=== PATIENT | female | born 1940 | race Hispanic/Latino ===

== ENCOUNTER 2017-09-04 17:33 | Inpatient (IN) | payer MEDICARE, OTHER ==
[2017-09-04] MEDS ORDERED: Nitroglycerin 2% Ointment Foilpak UD TOP STA (18:07)
[2017-09-04 18:32] LABS: BASO # 0.1 K/uL (0.0-0.2); BASO % 1.1 % (0.0-2.0); EOS # 0.1 K/uL (0.0-0.7); EOS % 1.2 % (0.0-4.0); HEMOGLOBIN 11.5 g/dL (12.0-16.0); LYMPH # 1.1 K/uL (1.0-4.3); LYMPH % 15.4 % (20.0-40.0); MEAN CELL VOLUME 97.9 fl (81.0-99.0); MEAN CORPUSCULAR HEMOGLOBIN 31.8 pg (27.0-31.0); MEAN CORPUSCULAR HGB CONC 32.4 g/dL (33.0-37.0); MEAN PLATELET VOLUME 7.7 fl (7.2-11.7); MONO # 0.5 K/uL (0.0-0.8); MONO % 6.9 % (0.0-10.0); NEUT # 5.3 K/uL (1.8-7.0); NEUT % 75.4 % (50.0-75.0); NRBC % 0.1 % (0.0-0.0); RBC 3.62 Mil/uL (3.80-5.20); RED CELL DISTRIBUTION WIDTH 16.1 % (11.5-14.5); WHITE BLOOD COUNT 7.1 K/uL (4.8-10.8)
[2017-09-04 18:42] LABS: ALBUMIN 3.5 g/dL (3.5-5.0); CALCIUM 10.3 mg/dL (8.4-10.2)
[2017-09-04] MEDS ORDERED: Iodixanol 320 MG/ML 100 ML BOTTLE IV ONE (18:42)
[2017-09-04] MEDS ORDERED: Sodium Chloride 0.9% 50 ML IV ONE (18:42)
[2017-09-04 18:52] LABS: INR 1.4 (0.9-1.2); PROTHROMBIN TIME 15.6 Seconds (9.8-13.1)
[2017-09-04] MEDS ORDERED: Nitroglycerin 2% Ointment Foilpak UD TOP ONE (18:52)
[2017-09-04 18:53] LABS: PARTIAL THROMBOPLASTIN TIME 30.5 Seconds (25.6-37.1); TROPONIN I 0.046 ng/mL (0.00-0.120)
--- NOTE | 2017-09-04 20:08 | ED PDOC ---
HPI: SOB/CHF/COPD Time Seen by Provider: 09/04/17 17:50 Chief Complaint (Nursing): Shortness Of Breath Chief Complaint (Provider): shortness of breath History Per: Patient History/Exam Limitations: no limitations Onset/Duration Of Symptoms: Other (1 month) Current Symptoms Are (Timing): Still Present Exacerbating Factor(s): Exertion, Laying Flat Associated Symptoms: denies: Chest Pain Additional Complaint(s): 77 year old female with a history of atrial fibrillation, hypertension and CHF presents to the ED complaining of shortness of breath onset for 1 month. Reports it is worsening with associated symptoms of leg swelling and dyspnea on exertion as well as lying down. States her doctor is away currently and the symptoms are similar to when she had CHF. Denies chest pain. Of note: For several months, she has had abnormal left breast with wound that is worsening. At this time she declines workup and does not want her family to know about it. PMD: Jesus Hassan Past Medical History Reviewed: Historical Data, Nursing Documentation, Vital Signs Vital Signs: Last Vital Signs Temp 98.1 F 09/04/17 21:00 Pulse 95 H 09/04/17 21:00 Resp 16 09/04/17 18:46 BP 116/74 09/04/17 21:50 Pulse Ox 88 L 09/04/17 22:54 - Medical History PMH: Atrial Fibrillation, CHF, HTN Other PMH: possible left breast malignancy - Surgical History Surgical History: No Surg Hx - Family History Family History: States: No Known Family Hx - Social History Current smoker - smoking cessation education provided: No Alcohol: None Drugs: Denies - Home Medications Home Medications: Ambulatory Orders Medication Instructions Recorded Allopurinol [Zyloprim] 100 mg PO DAILY 09/04/17 Digoxin [Digitek] 125 mcg PO DAILY 09/04/17 Docusate [Colace] 100 mg PO BID 09/04/17 Ergocalciferol (Vitamin D2) 50,000 unit PO FR 09/04/17 [Vitamin D2] Ferrous Sulfate [Feosol] 325 mg PO DAILY 09/04/17 Furosemide [Lasix] 40 mg PO DAILY 09/04/17 Hydrocodone/Ibuprofen 1 tab PO DAILY PRN 09/04/17 [Hydrocodone-Ibuprofen 7.5-200] Icosapent Ethyl [Vascepa] 2 gm PO DAILY 09/04/17 Lisinopril [Zestril] 10 mg PO DAILY 09/04/17 Metoprolol Tartrate [Lopressor] 25 mg PO Q8 09/04/17 Potassium Chloride [Klor-Con 10] 10 meq PO DAILY 09/04/17 Rivaroxaban [Xarelto] 20 mg PO HS 09/04/17 traZODone [Desyrel] 50 mg PO HS 09/04/17 - Allergies Allergies/Adverse Reactions: Allergies Allergy/AdvReac Type Severity Reaction Status Date / Time No Known Allergies Allergy Verified 09/04/17 17:41 Review of Systems ROS Statement: Except As Marked, All Systems Reviewed And Found Negative (As per HPI, othwerise negative) Cardiovascular: Negative for: Chest Pain Respiratory: Positive for: Shortness of Breath, SOB with Exertion Musculoskeletal: Positive for: Other (leg swelling) Skin: Positive for: Other (wound on left breast) Physical Exam - Reviewed Nursing Documentation Reviewed: Yes Vital Signs Reviewed: Yes - Physical Exam Appears: Positive for: No Acute Distress Head Exam: Positive for: ATRAUMATIC, NORMOCEPHALIC Skin: Positive for: Normal Color (left breast large, irregular wound), Warm, Dry Eye Exam: Positive for: EOMI, PERRL ENT: Negative for: Pharyngeal Erythema, Tonsillar Exudate Neck: Positive for: Painless ROM, Supple Cardiovascular/Chest: Positive for: Tachycardia. Negative for: Murmur Respiratory: Positive for: Decreased Breath Sounds (bilateral lung zhang). Negative for: Accessory Muscle Use, Wheezing Gastrointestinal/Abdominal: Positive for: Soft. Negative for: Tenderness, Mass Back: Positive for: Normal Inspection. Negative for: Decreased ROM Extremity: Positive for: Pedal Edema (3+ lower leg up to the thigh ) Neurologic/Psych: Positive for: Alert. Negative for: Motor/Sensory Deficits - Laboratory Results Result Diagrams: 09/04/17 18:22 09/04/17 18:22 - ECG ECG Rhythm: Positive for: Normal ST Segment, Atrial Fibrillation O2 Sat by Pulse Oximetry: 88 (abnormal room air and low. patient place on normal room air and provided 6L O2 via Nasal Cannula ) Pulse Ox Interpretation: Abnormal - Progress Re-evaluation Time: 22:00 Condition: Unchanged - Critical Care Total Time (In Min): 30 Documented Critical Care: Time excludes all time spent performint seperately billable procedures Medical Decision Making Medical Decision Making: Time: 1804 Initial Impression: shortness of breath Differential Diagnosis includes but is not limited to: CHF, pulmonary embolism, pneumonia, anemia Initial Plan: Pt will need hospitalization for edema, hypoxia pending ER workup. --Angio Chest PE Protocol [CT] --B-Type Natriuretic Peptide --CMP --LACT Acid, Plasma --Troponin I --ED Urine Dipstick --CBC w/ Differential --PTT --Prothrombin Time --Chest Portable [RAD] --Ecotrin 162mg --Lasix 40mg --Nitro-Bid 2% Oint --engine monitor --O2 via Nasal Cannula --Duplex Lower EXTRM Vein Bilat [US] --Reevaluation Time: 2209 EXAM: US Duplex Bilateral Lower Extremity Veins FINDINGS: Right deep veins: Normal color and spectral Doppler flow. Normal compressibility. No deep vein thrombosis. Right superficial veins: Unremarkable. Left deep veins: Normal color and spectral Doppler flow. Normal compressibility. No deep vein thrombosis. Left superficial veins: Unremarkable. Soft tissues: Edema within soft tissues. IMPRESSION: 1. No evidence of DVT within lower extremities. 2. Incidental/non-acute findings are described above Time: 2232 EXAM: CT Angiography Chest With Intravenous Contrast FINDINGS: Limitations: Motion artifact - moderate. Pulmonary arteries: No definite pulmonary embolism. Aorta: No aneurysm. No dissection. Inferior vena cava: Retrograde filling of IVC and hepatic veins. Lungs: Moderate peripheral consolidation within lower lobes with associated volume loss. Mild peripheral consolidation within right middle, left upper lobes with associated volume loss. 0.5 cm LEFT upper lobe nodule. Pleural space: Moderate bilateral pleural effusions. No pneumothorax. Heart: [id number] cardiomegaly. No significant pericardial effusion. Bones/joints: Multiple lytic/few sclerotic lesions throughout visualized bones Degenerative changes of spine. Mild compression deformity superior end plate L1 vertebral body, acute or subacute. Soft tissues: Moderate diffuse stranding throughout subcutaneous tissues. 6.7 x 3.5 x 6.2 cm lobulated left breast mass with associated irregular skin thickening and ulceration. Lymph nodes: 2.3 x 3.2 x 1.5 cm right axillary lymph node. IMPRESSION: 1. No definite CT evidence of pulmonary embolism. 2. Bilateral pleural effusions with bibasilar compressive atelectasis. Superimposed pneumonia not entirely excluded. 3. Probable right-sided heart failure. Clinical correlation is needed. 4. Left breast mass, highly suspicious for malignancy. Followup as clinically warranted. 5. Multiple lytic lesions compatible with metastases. 6. Pulmonary nodules. For low-risk patients, no follow-up is necessary. For high-risk patients (smoking history or other known risk factors) an optional CT at 12 months could be performed. 7. Incidental/non-acute findings are described above. Discussed finding with patient and provided large fusions hypoxia for perfusion Due to patient's critical condition, patient placed in ICU. Discussed case with Dr. Redd hospitalist for admission to ICU and Dr. Higgins who is covering for Dr. Hassan. DW Dr Field Pulmonology and Dr Miller Cardiology Scribe Attestation: Documented by Petrona Padilla, acting as a scribe for Nieves Serrano MD Provider Scribe Attestation: All medical record entries made by the Scribe were at my direction and personally dictated by me. I have reviewed the chart and agree that the record accurately reflects my personal performance of the history, physical exam, medical decision making, and the department course for this patient. I have also personally directed, reviewed, and agree with the discharge instructions and disposition. Disposition - Clinical Impression Clinical Impression: Pleural effusion, bilateral, CHF (congestive heart failure), Metastatic breast cancer, Osteolytic lesion due to metastasis Counseled Patient/Family Regarding: Diagnosis - Disposition Disposition Time: 19:30 Condition: CRITICAL - Pt Status Changed To: Hospital Disposition Of: Inpatient - Admit Certification Admit to Inpatient:: After my assessment, the patient will require hospitalization for at least two midnights. This is because of the severity of symptoms shown, intensity of services needed, and/or the medical risk in this patient being treated as an outpatient. - POA Present On Arrival: None
--- NOTE | 2017-09-04 22:10 | US ---
EXAM: US Duplex Bilateral Lower Extremity Veins CLINICAL HISTORY: 77 years old, female; Signs and symptoms; Edema, localized and swelling of limb; Lower extremity, bilateral; Additional info: Leg swelling TECHNIQUE: Real-time duplex ultrasound scan of the bilateral lower extremity veins integrating B-mode two-dimensional vascular structure, Doppler spectral analysis, color flow Doppler imaging and compression. COMPARISON: No relevant prior studies available. FINDINGS: Right deep veins: Normal color and spectral Doppler flow. Normal compressibility. No deep vein thrombosis. Right superficial veins: Unremarkable. Left deep veins: Normal color and spectral Doppler flow. Normal compressibility. No deep vein thrombosis. Left superficial veins: Unremarkable. Soft tissues: Edema within soft tissues. IMPRESSION: 1. No evidence of DVT within lower extremities. 2. Incidental/non-acute findings are described above.
--- NOTE | 2017-09-04 22:33 | CT ---
EXAM: CT Angiography Chest With Intravenous Contrast CLINICAL HISTORY: 77 years old, female; Signs and symptoms; Shortness of breath; Additional info: SOB chf v pe TECHNIQUE: Axial computed tomographic angiography images of the chest with intravenous contrast using pulmonary embolism protocol. All CT scans at this facility use one or more dose reduction techniques, viz.: automated exposure control; ma/kV adjustment per patient size (including targeted exams where dose is matched to indication; i.e. head); or iterative reconstruction technique. MIP reconstructed images were created and reviewed. Coronal and sagittal reformatted images were created and reviewed. CONTRAST: 80 mL of [id number] administered intravenously. COMPARISON: No relevant prior studies available. FINDINGS: Limitations: Motion artifact - moderate. Pulmonary arteries: No definite pulmonary embolism. Aorta: No aneurysm. No dissection. Inferior vena cava: Retrograde filling of IVC and hepatic veins. Lungs: Moderate peripheral consolidation within lower lobes with associated volume loss. Mild peripheral consolidation within right middle, left upper lobes with associated volume loss. 0.5 cm LEFT upper lobe nodule. Pleural space: Moderate bilateral pleural effusions. No pneumothorax. Heart: [id number] cardiomegaly. No significant pericardial effusion. Bones/joints: Multiple lytic/few sclerotic lesions throughout visualized bones Degenerative changes of spine. Mild compression deformity superior end plate L1 vertebral body, acute or subacute. Soft tissues: Moderate diffuse stranding throughout subcutaneous tissues. 6.7 x 3.5 x 6.2 cm lobulated left breast mass with associated irregular skin thickening and ulceration. Lymph nodes: 2.3 x 3.2 x 1.5 cm right axillary lymph node. IMPRESSION: 1. No definite CT evidence of pulmonary embolism. 2. Bilateral pleural effusions with bibasilar compressive atelectasis. Superimposed pneumonia not entirely excluded. 3. Probable right-sided heart failure. Clinical correlation is needed. 4. Left breast mass, highly suspicious for malignancy. Followup as clinically warranted. 5. Multiple lytic lesions compatible with metastases. 6. Pulmonary nodules. For low-risk patients, no follow-up is necessary. For high-risk patients (smoking history or other known risk factors) an optional CT at 12 months could be performed. 7. Incidental/non-acute findings are described above. THIS REPORT CONTAINS FINDINGS THAT MAY BE CRITICAL TO PATIENT CARE. The findings were verbally communicated via telephone conference with Nieves Barhaona at 10:32 PM EDT on 09/04/2017. The findings were acknowledged and understood.
--- NOTE | 2017-09-04 23:10 | CP.PCM.CON ---
History of Present Illness - History of Present Illness History of Present Illness: CC: Shortness of breath This is a 77 year old female with a past medical history significant for CHF ( unknown as to the severity in the past), chronic atrial fibrillation anticoagulated on Xarelto, essential hypertension, who presented to the ED today with the complaint of progressively worsening shortness of breath over the last month. The patient states that her symptoms are worse when laying supine and with exertion. She notes that she has previously been admitted for CHF exacerbation several years ago. In addition to this, she notes a left sided abnormal breast wound that has been enlarging over time. She says this wound has been there quite a while but she does not want to pursue workup for this. In the ED, the patient was found to have significant bilateral pleural effusions on CXR/CTA chest consistent with CHF exacerbation. Also noted is significant bilateral lower extremity edema and +JVD. The patient was found to be hypoxic on room air in the low 80's but is now saturating > 90% on 4L O2 by NC. Lab workup shows Pro BNP of 5190, troponin level of 0.0460, normal WBC of 7.1, slightly depressed Hg of 11.5. Given her hypoxic resp failure on room air secondary to acute CHF exacerbation, the patient will be admitted to the ICU for further monitoring, workup, and tx. Patient denies chest pain, fevers, chills, nausea, vomiting, diarrhea, headache. All of the patient's and/or family 's questions were answered at the bedside. Review of Systems - Review of Systems Review of Systems: A 12 point review of systems was conducted and found to be negative other than in HPI. Past Patient History - Infectious Disease Hx of Infectious Diseases: None - Past Medical History & Family History Past Medical History?: Yes Past Family History: Reviewed and not pertinent - Past Social History Smoking Status: Never Smoked Alcohol: None Drugs: Denies - CARDIAC Hx Atrial Fibrillation: Yes Hx Congestive Heart Failure: Yes Hx Hypertension: Yes - HEMATOLOGICAL/ONCOLOGICAL Hx Blood Disorders: Yes Hx Cancer: Yes - PSYCHIATRIC Hx Substance Use: No Meds Allergies/Adverse Reactions: Allergies Allergy/AdvReac Type Severity Reaction Status Date / Time No Known Allergies Allergy Verified 09/04/17 17:41 - Medications Medications: Current Medications Acetaminophen (Tylenol 325mg Tab) 650 mg PO Q6H PRN PRN Reason: Pain, Mild (1-3) Allopurinol (Zyloprim) 100 mg PO DAILY [facility] Digoxin (Digoxin) 0.125 mg PO DAILY [facility] Docusate Sodium (Colace) 100 mg PO BID [facility] Ergocalciferol (Drisdol 50,000 Intl Units Cap) 1 cap PO FR [facility] Ferrous Sulfate (Feosol) 325 mg PO DAILY [facility] Lisinopril (Zestril) 10 mg PO DAILY [facility] Metoprolol Tartrate (Lopressor) 25 mg PO Q8 [facility] Potassium Chloride (Klor-Con 10) 10 meq PO DAILY [facility] Rivaroxaban (Xarelto) 20 mg PO HS [facility] PRN Reason: Protocol Physical Exam - Additional Findings Additional findings: Physical exam: Constitutional- cooperative, awake, alert Head- NCAT, PERRL Eye- PERRL, EOMI ENT- normal exam, MMM. Neck- + JVD, supple Respiratory- + markedly decreased breath sounds in the bases. +Rales bilaterally. No wheezing or rhonchi appreciated Cardiovascular- ireegular rate and rhythm, +S1, +S2 no MRG GI/Abdominal- normal bowel sounds, soft, no mass, no hsm Skin- warm, dry Extremities Exam- + 3 pitting edema bilateral lower extremities extending up to the thighs. normal capillary refill Neurological Exam- alert, awake, oriented Psych- normal mood, normal affect Results - Vital Signs Recent Vital Signs: Last Vital Signs Temp 98.1 F 09/04/17 21:00 Pulse 95 H 09/04/17 21:00 Resp 16 09/04/17 18:46 BP 116/74 09/04/17 21:50 Pulse Ox 88 L 09/04/17 22:54 - Labs Result Diagrams: 09/04/17 18:22 09/04/17 18:22 Labs: Laboratory Results - last 24 hr 09/04/17 09/04/17 09/04/17 18:22 18:22 18:22 WBC 7.1 RBC 3.62 L Hgb 11.5 L Hct 35.4 MCV 97.9 MCH 31.8 H MCHC 32.4 L RDW 16.1 H Plt Count 215 MPV 7.7 Neut % (Auto) 75.4 H Lymph % (Auto) 15.4 L Catron % (Auto) 6.9 Eos % (Auto) 1.2 Baso % (Auto) 1.1 Neut # (Auto) 5.3 Lymph # (Auto) 1.1 Catron # (Auto) 0.5 Eos # (Auto) 0.1 Baso # (Auto) 0.1 PT 15.6 H INR 1.4 H APTT 30.5 Sodium 140 Potassium 4.3 Chloride 98 Carbon Dioxide 33 H Anion Gap 13 BUN 35 H Creatinine 1.1 Est GFR ( Amer) 58 Est GFR (Non-Af Amer) 48 Random Glucose 114 H Lactic Acid Calcium 10.3 H Total Bilirubin 0.7 AST 43 H ALT 41 Alkaline Phosphatase 105 Troponin I 0.0460 NT-Pro-B Natriuret Pep 5190 H Total Protein 7.1 Albumin 3.5 Globulin 3.5 Albumin/Globulin Ratio 1.0 09/04/17 18:22 WBC RBC Hgb Hct MCV MCH MCHC RDW Plt Count MPV Neut % (Auto) Lymph % (Auto) Catron % (Auto) Eos % (Auto) Baso % (Auto) Neut # (Auto) Lymph # (Auto) Catron # (Auto) Eos # (Auto) Baso # (Auto) PT INR APTT Sodium Potassium Chloride Carbon Dioxide Anion Gap BUN Creatinine Est GFR ( Amer) Est GFR (Non-Af Amer) Random Glucose Lactic Acid 1.0 Calcium Total Bilirubin AST ALT Alkaline Phosphatase Troponin I NT-Pro-B Natriuret Pep Total Protein Albumin Globulin Albumin/Globulin Ratio Assessment & Plan - Assessment and Plan (Free Text) Plan: EXAM: US Duplex Bilateral Lower Extremity Veins FINDINGS: Right deep veins: Normal color and spectral Doppler flow. Normal compressibility. No deep vein thrombosis. Right superficial veins: Unremarkable. Left deep veins: Normal color and spectral Doppler flow. Normal compressibility. No deep vein thrombosis. Left superficial veins: Unremarkable. Soft tissues: Edema within soft tissues. IMPRESSION: 1. No evidence of DVT within lower extremities. 2. Incidental/non-acute findings are described above Time: 2232 EXAM: CT Angiography Chest With Intravenous Contrast FINDINGS: Limitations: Motion artifact - moderate. Pulmonary arteries: No definite pulmonary embolism. Aorta: No aneurysm. No dissection. Inferior vena cava: Retrograde filling of IVC and hepatic veins. Lungs: Moderate peripheral consolidation within lower lobes with associated volume loss. Mild peripheral consolidation within right middle, left upper lobes with associated volume loss. 0.5 cm LEFT upper lobe nodule. Pleural space: Moderate bilateral pleural effusions. No pneumothorax. Heart: [id number] cardiomegaly. No significant pericardial effusion. Bones/joints: Multiple lytic/few sclerotic lesions throughout visualized bones Degenerative changes of spine. Mild compression deformity superior end plate L1 vertebral body, acute or subacute. Soft tissues: Moderate diffuse stranding throughout subcutaneous tissues. 6.7 x 3.5 x 6.2 cm lobulated left breast mass with associated irregular skin thickening and ulceration. Lymph nodes: 2.3 x 3.2 x 1.5 cm right axillary lymph node. IMPRESSION: 1. No definite CT evidence of pulmonary embolism. 2. Bilateral pleural effusions with bibasilar compressive atelectasis. Superimposed pneumonia not entirely excluded. 3. Probable right-sided heart failure. Clinical correlation is needed. 4. Left breast mass, highly suspicious for malignancy. Followup as clinically warranted. 5. Multiple lytic lesions compatible with metastases. 6. Pulmonary nodules. For low-risk patients, no follow-up is necessary. For high-risk patients (smoking history or other known risk factors) an optional CT at 12 months could be performed. 7. Incidental/non-acute findings are described above. ASSESSMENT/PLAN This is a 77 year old female with a past medical history significant for CHF ( unknown as to the severity in the past), chronic atrial fibrillation anticoagulated on Xarelto, essential hypertension, who presented to the ED today with the complaint of progressively worsening shortness of breath over the last month, now being admitted to the ICU for acute CHF exacerbation and hypoxic respiratory failure 1) Acute CHF exacerbation with bilateral pleural effusions with secondary hypoxemic respiratory failrue - Admit to ICU under Dr. Higgins - Continue nasal cannula as needed - Lasix 40 mg IVP BID, 80 mg given in ED, continue po KCL for supplementation - Monitor for worsening SOB - Vitals as per ICU protocol - 2 g NA diet - Cardiology consultation in AM - Echocardiogram in AM - Repeat labwork in AM including troponin - hemodynamically stable at this time 2) Chronic atrial fibrillation - Continue Xarelto 20 mg po HS - continue Lopressor 25 mg po q 8 hours for rate control - Digoxin 0.125 mg po daily- f/u on digoxin level - Check TSH, keep Mg >2 and K > 4 3) Left breast mass with findings concerning for metastatic disease (lytic lesions) on CTA - Pt refused workup in the past - oncology consult in AM as per Dr. Higgins 4) Essential HTN hx - Continue Lisinopril - Lopressor 25 mg po q8h - appears to be well controlled 5) Constipation - Colace BID - chronic 6) DVT prophylaxis - on Xarelto - SCDs
[2017-09-05] MEDS ORDERED: Oxycodone/Acetaminophen 5/325 mg Tab PO PRN (00:34)
[2017-09-05] MEDS: Oxycodone/Acetaminophen 5/325 mg Tab PO PRN ×2 (01:06→14:58)
[2017-09-05 05:31] LABS: HEMOGLOBIN 10.9 g/dL (12.0-16.0); MEAN CELL VOLUME 98.6 fl (81.0-99.0); MEAN CORPUSCULAR HEMOGLOBIN 31.6 pg (27.0-31.0); RBC 3.46 Mil/uL (3.80-5.20); RED CELL DISTRIBUTION WIDTH 16.5 % (11.5-14.5); WHITE BLOOD COUNT 7.5 K/uL (4.8-10.8)
[2017-09-05 05:42] LABS: CALCIUM 9.8 mg/dL (8.4-10.2)
--- NOTE | 2017-09-05 07:42 | RAD ---
HISTORY: chf COMPARISON: Chest radiographs 01/29/2013. FINDINGS: LUNGS: There is prominent opacification of the bilateral inferior greater than mid lung zones due to pleural effusions with underlying airspace disease not excluded bilaterally. No pneumothorax bilaterally. PLEURA: As above. CARDIOVASCULAR: Cardiac silhouette is largely obscured by a bilateral pleural effusions, however, mild pulmonary venous congestion is questioned. OSSEOUS STRUCTURES: No significant abnormalities. VISUALIZED UPPER ABDOMEN: Normal. OTHER FINDINGS: None. IMPRESSION: Bilateral moderate to large pleural effusions are identified with underlying airspace disease not excluded. Mild pulmonary vascular congestion pattern may indicate CHF. Clinically correlate further.
--- NOTE | 2017-09-05 08:38 | CP.PCM.CON ---
History of Present Illness - History of Present Illness History of Present Illness: Consultation for evaluation of CHF HPI: 77 year old female with hx of HTN, dyslipidemia, chronic atrial fibrillation on xarelto presenting with c/o SOB x few weeks [employer]. Review of Systems - Review of Systems Systems not reviewed;Unavailable: Acuity of Condition - Constitutional Constitutional: As Per HPI - EENT Eyes: As Per HPI Ears: As Per HPI Nose/Mouth/Throat: As Per HPI - Breasts Breasts: As Per HPI - Cardiovascular Cardiovascular: As Per HPI - Respiratory Respiratory: As Per HPI - Gastrointestinal Gastrointestinal: As Per HPI - Genitourinary Genitourinary: As Per HPI - Reproductive: Female Reproductive:Female: As Per HPI - Menstruation Menstruation: As Per HPI - Musculoskeletal Musculoskeletal: As Per HPI - Integumentary Integumentary: As Per HPI - Neurological Neurological: As Per HPI - Psychiatric Psychiatric: As Per HPI - Endocrine Endocrine: As Per HPI - Hematologic/Lymphatic Hematologic: As Per HPI Past Patient History - Infectious Disease Hx of Infectious Diseases: None - Past Medical History & Family History Past Medical History?: Yes - Past Social History Smoking Status: Never Smoked - CARDIAC Hx Cardiac Disorders: Yes Hx Atrial Fibrillation: Yes Hx Congestive Heart Failure: Yes Hx Hypertension: Yes - PULMONARY Hx Respiratory Disorders: No - NEUROLOGICAL Hx Neurological Disorder: No - HEENT Hx HEENT Problems: Yes Other/Comment: wears glasses - RENAL Hx Chronic Kidney Disease: No - ENDOCRINE/METABOLIC Hx Endocrine Disorders: No - HEMATOLOGICAL/ONCOLOGICAL Hx Blood Disorders: No - INTEGUMENTARY Hx Dermatological Problems: Yes Other/Comment: Left breast wound, present on admission. - MUSCULOSKELETAL/RHEUMATOLOGICAL Hx Musculoskeletal Disorders: Yes Hx Back Pain: Yes Hx Falls: No - GASTROINTESTINAL Hx Gastrointestinal Disorders: No - GENITOURINARY/GYNECOLOGICAL Hx Genitourinary Disorders: No - PSYCHIATRIC Hx Psychophysiologic Disorder: No Hx Substance Use: No - SURGICAL HISTORY Hx Surgeries: No - ANESTHESIA Hx Anesthesia: No Meds Allergies/Adverse Reactions: Allergies Allergy/AdvReac Type Severity Reaction Status Date / Time No Known Allergies Allergy Verified 09/04/17 17:41 - Medications Medications: Current Medications Acetaminophen (Tylenol 325mg Tab) 650 mg PO Q6H PRN PRN Reason: Pain, Mild (1-3) Allopurinol (Zyloprim) 100 mg PO DAILY [facility] Digoxin (Digoxin) 0.125 mg PO DAILY [facility] Docusate Sodium (Colace) 100 mg PO BID [facility] Ergocalciferol (Drisdol 50,000 Intl Units Cap) 1 cap PO FR [facility] Ferrous Sulfate (Feosol) 325 mg PO DAILY [facility] Furosemide (Lasix) 40 mg IVP Q12H [facility] Lisinopril (Zestril) 10 mg PO DAILY [facility] Metoprolol Tartrate (Lopressor) 25 mg PO Q8 [facility] Last Admin: 09/05/17 01:10 Dose: 25 mg Oxycodone/Acetaminophen (Percocet 5/325 Mg Tab) 1 tab PO Q4 PRN PRN Reason: pain 1-5 Stop: 09/08/17 00:35 Last Admin: 09/05/17 01:06 Dose: 1 tab Potassium Chloride (Klor-Con 10) 10 meq PO DAILY [facility] Rivaroxaban (Xarelto) 20 mg PO HS [facility] PRN Reason: Protocol Last Admin: 09/05/17 01:07 Dose: 20 mg Physical Exam - Constitutional Appears: Well - Head Exam Head Exam: ATRAUMATIC, NORMAL INSPECTION, NORMOCEPHALIC - Eye Exam Eye Exam: EOMI, Normal appearance, PERRL Pupil Exam: NORMAL ACCOMODATION, PERRL - ENT Exam ENT Exam: Mucous Membranes Moist, Normal Exam - Neck Exam Neck exam: Positive for: Normal Inspection - Respiratory Exam Respiratory Exam: Rales, Rhonchi - Cardiovascular Exam Cardiovascular Exam: Irregular Rhythm, +S1, +S2, Systolic Murmur - GI/Abdominal Exam GI & Abdominal Exam: Normal Bowel Sounds, Soft. absent: Tenderness - Extremities Exam Extremities exam: Positive for: normal inspection - Back Exam Back exam: NORMAL INSPECTION - Neurological Exam Neurological exam: Alert, CN II-XII Intact, Normal Gait, Oriented x3, Reflexes Normal - Psychiatric Exam Psychiatric exam: Normal Affect, Normal Mood - Skin Skin Exam: Dry, Intact, Normal Color, Warm Results - Vital Signs Recent Vital Signs: Last Vital Signs Temp 97.5 F L 09/05/17 04:00 Pulse 82 09/05/17 06:00 Resp 26 H 09/05/17 06:00 BP 107/66 09/05/17 06:00 Pulse Ox 99 09/05/17 06:00 - Labs Result Diagrams: 09/05/17 04:30 09/05/17 04:30 Labs: Laboratory Results - last 24 hr 09/04/17 09/04/17 09/04/17 18:22 18:22 18:22 WBC 7.1 RBC 3.62 L Hgb 11.5 L Hct 35.4 MCV 97.9 MCH 31.8 H MCHC 32.4 L RDW 16.1 H Plt Count 215 MPV 7.7 Neut % (Auto) 75.4 H Lymph % (Auto) 15.4 L Barry % (Auto) 6.9 Eos % (Auto) 1.2 Baso % (Auto) 1.1 Neut # (Auto) 5.3 Lymph # (Auto) 1.1 Barry # (Auto) 0.5 Eos # (Auto) 0.1 Baso # (Auto) 0.1 PT 15.6 H INR 1.4 H APTT 30.5 Sodium 140 Potassium 4.3 Chloride 98 Carbon Dioxide 33 H Anion Gap 13 BUN 35 H Creatinine 1.1 Est GFR ( Amer) 58 Est GFR (Non-Af Amer) 48 Random Glucose 114 H Lactic Acid Calcium 10.3 H Magnesium Total Bilirubin 0.7 AST 43 H ALT 41 Alkaline Phosphatase 105 Troponin I 0.0460 NT-Pro-B Natriuret Pep 5190 H Total Protein 7.1 Albumin 3.5 Globulin 3.5 Albumin/Globulin Ratio 1.0 TSH 3rd Generation Digoxin 09/04/17 09/04/17 09/05/17 18:22 21:39 04:30 WBC 7.5 RBC 3.46 L Hgb 10.9 L Hct 34.2 MCV 98.6 MCH 31.6 H MCHC 32.0 L RDW 16.5 H Plt Count 211 MPV Neut % (Auto) Lymph % (Auto) Barry % (Auto) Eos % (Auto) Baso % (Auto) Neut # (Auto) Lymph # (Auto) Barry # (Auto) Eos # (Auto) Baso # (Auto) PT INR APTT Sodium Potassium Chloride Carbon Dioxide Anion Gap BUN Creatinine Est GFR ( Amer) Est GFR (Non-Af Amer) Random Glucose Lactic Acid 1.0 Calcium Magnesium Total Bilirubin AST ALT Alkaline Phosphatase Troponin I NT-Pro-B Natriuret Pep Total Protein Albumin Globulin Albumin/Globulin Ratio TSH 3rd Generation Digoxin 1.6 09/05/17 09/05/17 04:30 04:30 WBC RBC Hgb Hct MCV MCH MCHC RDW Plt Count MPV Neut % (Auto) Lymph % (Auto) Barry % (Auto) Eos % (Auto) Baso % (Auto) Neut # (Auto) Lymph # (Auto) Barry # (Auto) Eos # (Auto) Baso # (Auto) PT INR APTT Sodium 142 Potassium 4.1 Chloride 96 L Carbon Dioxide 36 H Anion Gap 14 BUN 33 H Creatinine 1.3 H Est GFR ( Amer) 48 Est GFR (Non-Af Amer) 40 Random Glucose 127 H Lactic Acid Calcium 9.8 Magnesium 1.8 Total Bilirubin AST ALT Alkaline Phosphatase Troponin I 0.0630 NT-Pro-B Natriuret Pep Total Protein Albumin Globulin Albumin/Globulin Ratio TSH 3rd Generation 2.81 Digoxin Assessment & Plan (1) Atrial fibrillation Status: Acute (2) CHF (congestive heart failure) Status: Acute (3) Pleural effusion, bilateral Status: Acute (4) HTN (hypertension) Status: Acute
[2017-09-05] MEDS ORDERED: Sodium Chloride 3% for Inhalation 4 ML VIAL.NEB IH PRN (08:54)
[2017-09-05] MEDS: Digoxin 125 mcg (0.125 mg) Tab PO SCH (09:17)
[2017-09-05] MEDS: Potassium Chloride 10 mEq ER Tab PO SCH (09:17)
--- NOTE | 2017-09-05 09:34 | CP.PCM.HP ---
History of Present Illness - History of Present Illness History of Present Illness: 77 yo ,f, PMhx/o A fib( on xarelto), HTN, CHF presents c/o progressive SOB started about 1 month on exertion associated with orthopnea, b/l leg swelling. Reports SOB to minimal exertion when walking short distance. Patient denies fever, cough, chest pain, PND, n,v,d, abd pain, dysuria. Patient reports similar symptoms when she was admitted for CHF some years ago. Patient also reports a left breast lesion noticed for several months ago but she refused workup and does not want family to know about that. Patient seen and examined bedside with Dr Higgins in ICUAAO x3 in not respiratory distress . Patient reports feeling better. Patient aware about lesion could be breast cancer and refuses at this time to be examined for medical staff, except Dr Higgins and Dr Barry (when coming from vacation). Patient verbalized understanding about workup refusal and treatment. Patient also explained about pleural effusions bilateral and the need of thoracentesis and refuses procedure at this time and only wants medications treatment. Patient refuses intubation if going to respiratory failure, but accept chest compression and medications. Code Status: DNI PMD: Jesus Barry Present on Admission - Present on Admission Any Indicators Present on Admission: No History of DVT/PE: No History of Uncontrolled Diabetes: No Urinary Catheter: No Decubitus Ulcer Present: No Review of Systems - Review of Systems All systems: reviewed and no additional remarkable complaints except - Cardiovascular Cardiovascular: Dyspnea, Leg Edema - Respiratory Respiratory: Dyspnea on Exertion Past Patient History - Infectious Disease Hx of Infectious Diseases: None - Past Medical History & Family History Past Medical History?: Yes - Past Social History Smoking Status: Never Smoked - CARDIAC Hx Cardiac Disorders: Yes Hx Atrial Fibrillation: Yes Hx Congestive Heart Failure: Yes Hx Hypertension: Yes - PULMONARY Hx Respiratory Disorders: No - NEUROLOGICAL Hx Neurological Disorder: No - HEENT Hx HEENT Problems: Yes Other/Comment: wears glasses - RENAL Hx Chronic Kidney Disease: No - ENDOCRINE/METABOLIC Hx Endocrine Disorders: No - HEMATOLOGICAL/ONCOLOGICAL Hx Blood Disorders: No - INTEGUMENTARY Hx Dermatological Problems: Yes Other/Comment: Left breast wound, present on admission. - MUSCULOSKELETAL/RHEUMATOLOGICAL Hx Musculoskeletal Disorders: Yes Hx Back Pain: Yes Hx Falls: No - GASTROINTESTINAL Hx Gastrointestinal Disorders: No - GENITOURINARY/GYNECOLOGICAL Hx Genitourinary Disorders: No - PSYCHIATRIC Hx Psychophysiologic Disorder: No Hx Substance Use: No - SURGICAL HISTORY Hx Surgeries: No - ANESTHESIA Hx Anesthesia: No Meds Allergies/Adverse Reactions: Allergies Allergy/AdvReac Type Severity Reaction Status Date / Time No Known Allergies Allergy Verified 09/04/17 17:41 Physical Exam - Constitutional Appears: No Acute Distress - Head Exam Head Exam: ATRAUMATIC, NORMOCEPHALIC - Eye Exam Eye Exam: Normal appearance - ENT Exam ENT Exam: Mucous Membranes Moist - Neck Exam Additional comments: mild JVD - Respiratory Exam Respiratory Exam: Decreased Breath Sounds. absent: Rhonchi, Wheezes Additional comments: bibasal - Cardiovascular Exam Cardiovascular Exam: Irregular Rhythm, +S1, +S2 - GI/Abdominal Exam GI & Abdominal Exam: Normal Bowel Sounds, Soft. absent: Tenderness Additional comments: Breast Exam: refused by patient. PE done by Dr higgins, who describe left breast mass lesion, with a scab on the skin, no erythema, signs of infection - Extremities Exam Extremities exam: Positive for: pedal edema (2+ bilateral 2/3 bilateral legs) - Neurological Exam Neurological exam: Alert, Oriented x3 - Psychiatric Exam Psychiatric exam: Normal Affect - Skin Skin Exam: Intact Results - Vital Signs Recent Vital Signs: Last Vital Signs Temp 98.4 F 09/05/17 08:00 Pulse 89 09/05/17 08:00 Resp 24 09/05/17 08:00 BP 108/70 09/05/17 08:00 Pulse Ox 98 09/05/17 08:00 - Labs Result Diagrams: 09/05/17 04:30 09/05/17 04:30 Labs: Laboratory Results - last 24 hr 09/04/17 09/04/17 09/04/17 18:22 18:22 18:22 WBC 7.1 RBC 3.62 L Hgb 11.5 L Hct 35.4 MCV 97.9 MCH 31.8 H MCHC 32.4 L RDW 16.1 H Plt Count 215 MPV 7.7 Neut % (Auto) 75.4 H Lymph % (Auto) 15.4 L Mckean % (Auto) 6.9 Eos % (Auto) 1.2 Baso % (Auto) 1.1 Neut # (Auto) 5.3 Lymph # (Auto) 1.1 Mckean # (Auto) 0.5 Eos # (Auto) 0.1 Baso # (Auto) 0.1 PT 15.6 H INR 1.4 H APTT 30.5 Sodium 140 Potassium 4.3 Chloride 98 Carbon Dioxide 33 H Anion Gap 13 BUN 35 H Creatinine 1.1 Est GFR ( Amer) 58 Est GFR (Non-Af Amer) 48 Random Glucose 114 H Lactic Acid Calcium 10.3 H Magnesium Total Bilirubin 0.7 AST 43 H ALT 41 Alkaline Phosphatase 105 Troponin I 0.0460 NT-Pro-B Natriuret Pep 5190 H Total Protein 7.1 Albumin 3.5 Globulin 3.5 Albumin/Globulin Ratio 1.0 TSH 3rd Generation Digoxin 09/04/17 09/04/17 09/05/17 18:22 21:39 04:30 WBC 7.5 RBC 3.46 L Hgb 10.9 L Hct 34.2 MCV 98.6 MCH 31.6 H MCHC 32.0 L RDW 16.5 H Plt Count 211 MPV Neut % (Auto) Lymph % (Auto) Mckean % (Auto) Eos % (Auto) Baso % (Auto) Neut # (Auto) Lymph # (Auto) Mckean # (Auto) Eos # (Auto) Baso # (Auto) PT INR APTT Sodium Potassium Chloride Carbon Dioxide Anion Gap BUN Creatinine Est GFR ( Amer) Est GFR (Non-Af Amer) Random Glucose Lactic Acid 1.0 Calcium Magnesium Total Bilirubin AST ALT Alkaline Phosphatase Troponin I NT-Pro-B Natriuret Pep Total Protein Albumin Globulin Albumin/Globulin Ratio TSH 3rd Generation Digoxin 1.6 09/05/17 09/05/17 04:30 04:30 WBC RBC Hgb Hct MCV MCH MCHC RDW Plt Count MPV Neut % (Auto) Lymph % (Auto) Mckean % (Auto) Eos % (Auto) Baso % (Auto) Neut # (Auto) Lymph # (Auto) Mckean # (Auto) Eos # (Auto) Baso # (Auto) PT INR APTT Sodium 142 Potassium 4.1 Chloride 96 L Carbon Dioxide 36 H Anion Gap 14 BUN 33 H Creatinine 1.3 H Est GFR ( Amer) 48 Est GFR (Non-Af Amer) 40 Random Glucose 127 H Lactic Acid Calcium 9.8 Magnesium 1.8 Total Bilirubin AST ALT Alkaline Phosphatase Troponin I 0.0630 NT-Pro-B Natriuret Pep Total Protein Albumin Globulin Albumin/Globulin Ratio TSH 3rd Generation 2.81 Digoxin Assessment & Plan - Assessment and Plan (Free Text) Plan: Assessment/Plan 1) Respiratory failure Secondary to Acute CHF and pleural effusion -admitted ICU -resolving with diuretics, O2 NC -CXR: B/L pleural effusion -Pulmonology consult suggested 2) CHF exacerbation Unspecified - Pro BNP of 5190 -f/u Echo to determine systolic vs diastolic -c/w Lasix -Cardiology consult suggested 3) Bilateral Pleural effusion -secondary CHF vs metastatic breast Ca -CXR: mod b/l pleural effusions -offered patient option of thoracentesis and refuses at this time -Pulmonology consult suggested 4) Atrial Fibrilation Chronic on Xarelto -c/w digoxin, metroprolol 5) HTN Controlled -c/w home meds 6) Left breast mass -secondary to high probability of breast CA with bone mets -pt refuses work up for breast mass -pt refuses physical exam for medical staff except dr higgins and dr barry. 7) DVT prophylaxis -On anticoagulation with Xarelto
--- NOTE | 2017-09-05 11:42 | PN ---
DATE: 09/05/2017 CRITICAL CARE PROGRESS NOTE LOCATION: The patient in ICU, bed 422. TIME SPENT: 35 minutes. SUBJECTIVE: The patient is seen and evaluated at the bedside. Past medical, surgical, family and social history reviewed. A 77-year-old female nonsmoker with a history of hypertension, congestive heart failure, chronic atrial fibrillation on Xarelto, fungating mass involving left breast, followed by Dr. Hassan, admitted through emergency room complaining of increasing shortness of breath. Chest x-ray, CT angiogram consistent with bilateral pleural effusion with associated atelectasis and hypoxemia, admitted for exacerbation of acute CHF, worsening bilateral pleural effusion and breast mass of unknown etiology. Overnight on IV Lasix 40 mg every 12 hours, this morning remains alert and awake, follows commands appropriate, out of bed to chair. Reports less short of breath compared to baseline on admission. No cough. Denies chest pain or palpitation, no abdominal discomfort. No diarrhea. No dysuria, swelling of both lower extremities. OBJECTIVE: GENERAL: Elderly female, oriented to name, place and time. VITAL SIGNS: Temperature 98.4, heart rate 89 and irregular, respiratory rate of 24, thoracoabdominal, and blood pressure 108/70. HEENT: Pupils are reactive. Conjunctivae pale. Sclerae are anicteric. Trachea is central. CHEST: Bilateral breath sounds diminished in intensity. Fine crepitations at the bases. HEART: Rhythm irregular. Soft systolic murmur. ABDOMEN: Bowel sounds present and soft. EXTREMITIES: 2+ edema. DP palpable. BREASTS: Mass left breast reportedly (the patient does not want to examine the breasts). NEUROLOGIC: Nonfocal. CURRENT MEDICATIONS: Lasix 40 mg IV every 12 hours, Tylenol 650 every 6 hours p.r.n. for pain, allopurinol 100 mg p.o. daily, digoxin 0.125 mg p.o. daily, Colace 100 mg p.o. b.i.d., ergocalciferol 1 capsule p.o. once a week, ferrous sulfate 325 mg p.o. daily, lisinopril 10 mg p.o. daily, Lopressor 25 mg p.o. every 8 hours, Percocet 5/325 mg 1 tablet every 4 hours p.r.n., potassium chloride 10 mEq p.o. daily, and Xarelto 25 mg at bedtime. LABORATORY DATA: WBC 7.5, hemoglobin 10.9, hematocrit 34.2, and platelet count 211,000. PT 15.6, INR 1.4, and PTT 30.5. SMA-7; sodium 142, potassium 4.1, chloride 96, CO2 36, BUN 33, creatinine 1.3, random glucose 127, lactic acid 1, calcium 9.8, magnesium 1.8, and troponin 0.0630. TSH of 2.81. Digoxin 1.6. Microbiology, none reported. Extremity ultrasound, no deep venous thrombosis. Chest x-ray, bilateral [id number] pleural effusion with underlying air space disease, mild pulmonary vascular congestion suggesting congestive heart failure. Chest CT, no CT evidence of pulmonary embolism, bilateral pleural effusion with bibasilar compressive atelectasis, probable right-sided heart failure, left breast mass highly suspicious for malignancy, multiple lactic lesions compatible with metastasis, pulmonary nodules. IMPRESSION AND PLAN: 1. Neuro: Alert and awake, oriented to name, place, and time. No loss of short-term memory. 2. Pulmonary: Bilateral pleural effusion with compressive atelectasis. The etiology could be congestive heart failure superimposed on metastatic malignant pleural effusion. The patient declines to have diagnostic or therapeutic thoracentesis, reportedly less short of breath on diuretic, no further workup planned as per the patient's request. 3. Cardiac: Chronic atrial fibrillation rate controlled, on digoxin and on furosemide 40 mg IV every 12 hours and Xarelto 20 mg p.o. at bedtime, metoprolol 25 mg every 8 hours, lisinopril 10 mg p.o. at bedtime. [id number] systolic heart failure, reportedly pending echocardiogram, continue with the current medications. 4. Hematology, no leukocytosis, anemia probably chronic disease associated with possible underlying malignancy involving left breast, normal platelet count. 5. Renal: Chronic renal insufficiency with BUN and creatinine of 33 and 1.3, now with diuretic. No electrolyte abnormalities noted. 6. Endocrinology, keep blood sugar less than 180. TSH third generation within normal limits. 7. Continue DVT prophylaxis, currently on Xarelto 20 mg daily, no need for GI prophylaxis as the patient is not intubated and no history of gastritis/gastroesophageal reflux disease. 8. As per discussion with the patient, the patient prefers to be do not intubate, but request for resuscitative effort with mechanical compression and chemical treatment. Serafin Campo MD
--- NOTE | 2017-09-05 11:55 | CON ---
DATE: HISTORY OF PRESENT ILLNESS: This is a 77-year-old female who referred for pulmonary evaluation by Dr. Higgins. She was admitted with shortness of breath which progressively have worsened for the past several days. She showed up in the emergency room and was diagnosed to have bilateral pleural effusion, which requires intervention. However, she is very apprehensive and does not want much done on to, she speaks with Dr. Hassan. PAST MEDICAL HISTORY: She has a past medical history of congestive heart failure, chronic atrial fibrillation on anticoagulation (Xarelto). She also has hypertension. She also indicates that she has had pleural effusions in the past requiring thoracentesis and was in [facility] a few years ago for the same thing. She has right breast mass which she knows about and is apprehensive have it evaluated and only wants to be treated for her congestive heart failure. She denies any family. Denies smoking or alcohol use and only wants to speak with Dr. Hassan. PHYSICAL EXAMINATION: GENERAL: The patient is alert and oriented, and apprehensive. VITAL SIGNS: Remarkable for blood pressure of 107/66 with a pulse of 82, respiratory rate is 25 per minute, O2 saturation of 99% on nasal cannula oxygen. SKIN: Shows fair turgor. HEENT: Pupils are equal and reactive to light and accommodation. Mouth shows fair hygiene. LUNGS: Bilateral basal dullness with fair aeration of the apices. HEART: Irregular rhythm. BREASTS: Left breast mass. ABDOMEN: Soft, nontender, and no organomegaly. Extremities: Pedal edema. CENTRAL NERVOUS SYSTEM: Exam grossly intact. LABORATORY DATA: WBC of 7.5, hemoglobin of 10.9, platelet count of 211. Sodium of 142, potassium of 4.1, BUN of 33, and creatinine of 1.3. Lactate is 1.0. AST is 43 and ALT is 41. ProBNP is 5190. Troponin is 0.063. IMAGING DATA: Chest x-ray is remarkable for bilateral moderate to large pleural effusions, underlying airspace disease cannot be excluded, mild pulmonary congestion, and congestive heart failure pattern. A CT scan of the chest is remarkable for no evidence of pulmonary embolism, bilateral pleural effusions with bibasilar compressive atelectasis superimposed pneumonia cannot be excluded probable right-sided heart failure, left breast mass suspicious for malignancy multiple lytic lesions compatible with mets and pulmonary nodules. IMPRESSION Elderly patient with history of chronic congestive heart failure and atrial fibrillation, clinical pictures probably compatible with congestive heart failure decompensated with view off the patient having left breast mass one has to rule out malignant effusion, one also has to rule out superimposed pneumonia, history of hypertension, and history of atrial fibrillation. PLAN: At this point would be to treat the patient with diuretics and antibiotics and repeat serial chest x-rays to evaluate of pleural effusion and progress. The patient, however, does not want any other intervention except for being treated for congestive heart failure. I advised her that the condition may be due to some form of malignancy. If does not resolve following treatment with diuretics, while she wants to talk to Dr. Hassan before she makes that decision to have further intervention. We will continue therapy as ordered. We will follow with you. Artie Field MD
--- NOTE | 2017-09-05 13:50 | CARD ---
APPROVED REPORT EKG Measurement Heart [id number] <Conclusion> Atrial fibrillation with rapid ventricular response Low voltage QRS Incomplete right bundle branch block Septal infarct, age undetermined Abnormal ECG
--- NOTE | 2017-09-05 14:17 | PQF GENQUE ---
This form is a permanent part of the medical record 09/05/17 Dr. Redd, Please provide specificity regarding the acuity of respiratory failure. Admitted with progressive SOB over the past month. Respiratory rate 26. The patient was found to be hypoxic on room air in the low 80's but is now saturating >90% on 4 L O2 by NC. Documentation of Hypoxic Respiratory Failure. Clarification of your documentation is requested to better reflect the severity of illness and intensity of treatment of your patient. Indicators present PHYSICIAN'S RESPONSE Acuity of Hypoxic Respiratory Failure [] Acute [] Chronic [] Acute on chronic [] Other (please specify) [] Clinically unable to determine [] Unknown Based on your medical judgment of the clinical indicators outlined above please clarify the following: [] Practitioner response [] If unable to determine, please check the box, sign and date. Present On Admission (POA) Indicator: [] Present at the time of admission [] Not present at the time of admission [] Clinically Undetermined In responding to this query, please exercise your independent professional judgment. The fact that a question is asked does not imply that any particular answer is desired or expected. Thank you for your clarification on this documentation. If you have any questions please call:[phone] * Thank you, Ca Csah RN CDMP MTDD
[2017-09-06 05:39] LABS: BASO # 0.1 K/uL (0.0-0.2); BASO % 1.2 % (0.0-2.0); EOS # 0.2 K/uL (0.0-0.7); EOS % 2.7 % (0.0-4.0); HEMOGLOBIN 10.6 g/dL (12.0-16.0); LYMPH # 1.5 K/uL (1.0-4.3); LYMPH % 21.1 % (20.0-40.0); MEAN CELL VOLUME 98.7 fl (81.0-99.0); MEAN CORPUSCULAR HEMOGLOBIN 31.1 pg (27.0-31.0); MEAN CORPUSCULAR HGB CONC 31.5 g/dL (33.0-37.0); MEAN PLATELET VOLUME 7.8 fl (7.2-11.7); MONO # 0.7 K/uL (0.0-0.8); NEUT # 4.5 K/uL (1.8-7.0); NRBC % 0.1 % (0.0-0.0); RBC 3.41 Mil/uL (3.80-5.20); RED CELL DISTRIBUTION WIDTH 15.7 % (11.5-14.5)
[2017-09-06 05:44] LABS: ALBUMIN 3.1 g/dL (3.5-5.0); CALCIUM 9.5 mg/dL (8.4-10.2)
[2017-09-06 06:08] LABS: INR 1.6 (0.9-1.2); PARTIAL THROMBOPLASTIN TIME 33.8 Seconds (25.6-37.1); PROTHROMBIN TIME 17.4 Seconds (9.8-13.1)
[2017-09-06] MEDS: Oxycodone/Acetaminophen 5/325 mg Tab PO PRN ×2 (07:59→20:25)
[2017-09-06] MEDS: Digoxin 125 mcg (0.125 mg) Tab PO SCH (08:02)
[2017-09-06] MEDS: Potassium Chloride 10 mEq ER Tab PO SCH (08:02)
--- NOTE | 2017-09-06 08:03 | CARD ---
APPROVED REPORT EXAM: Two-dimensional and M-mode echocardiogram with Doppler and color Doppler. Other Information Quality : GoodRhythm : NSR INDICATION Pleural Effusion 2D DIMENSIONS IVSd1.07 (0.7-1.1cm)LVDd4.17 (3.9-5.9cm) LVOT Diameter2.01 (1.8-2.4cm)PWd0.83 (0.7-1.1cm) IVSs1.40 (0.8-1.2cm)LVDs2.45 (2.5-4.0cm) FS (%) 41.2 %PWs1.67 (0.8-1.2cm) M-Mode DIMENSIONS Left Atrium (MM)5.50 (2.5-4.0cm)IVSd1.01 (0.7-1.1cm) Aortic Root2.99 (2.2-3.7cm)LVDd4.00 (4.0-5.6cm) Aortic Cusp Exc.1.66 (1.5-2.0cm)PWd1.38 (0.7-1.1cm) IVSs1.05 cmFS (%) 34 % LVDs2.63 (2.0-3.8cm)PWs2.02 cm Mitral Valve E/A ratio0.0 TDI E/Lateral E'0.0E/Medial E'0.0 Pulmonary Valve PV Peak [id number]/s Tricuspid Valve TR Peak [id number] [id number] Peak Gr.32mmHg [id number] LEFT VENTRICLE The left ventricle is normal size. There is normal left ventricular wall thickness. Left ventricle systolic function is borderline. The Ejection Fraction is 50-55%. Septal motion was abnormal due to right ventricular preponderence Other LV segments contracted normally. Pt has A Fib RIGHT VENTRICLE The right ventricle is moderately to severely dilated. There is normal right ventricular wall thickness. The right ventricular systolic function is normal. ATRIA The left atrium is moderately dilated. The right atrium is severely dilated. AORTIC VALVE The aortic valve is normal in structure. No aortic regurgitation is present. There is no aortic valvular stenosis. MITRAL VALVE The mitral valve is normal in structure. There is no evidence of mitral valve prolapse. There is no mitral valve stenosis. Mitral regurgitation is moderate. TRICUSPID VALVE The tricuspid valve is normal in structure. There is severe tricuspid regurgitation. Right ventricular systolic pressure is estimated at 49 mmHg. There is moderate-severe pulmonary hypertension. PULMONIC VALVE The pulmonary valve is normal in structure. There is mild pulmonic valvular regurgitation. GREAT VESSELS The aortic root is normal in size. Due to poor image quality, the IVC could not be assessed. PERICARDIAL EFFUSION The pericardium appears normal. There is large left pleural effusion. <Conclusion> The left ventricle is normal size. There is normal left ventricular wall thickness. Septal motion was abnormal due to right ventricular preponderence Other LV segments contracted normally. Left ventricle systolic function is borderline. The Ejection Fraction is 50-55%. The right ventricle is moderately to severely dilated. The left atrium is moderately dilated. The right atrium is severely dilated. Mitral regurgitation is moderate. There is severe tricuspid regurgitation. There is moderate-severe pulmonary hypertension. There is large left pleural effusion.
--- NOTE | 2017-09-06 08:34 | CP.PCM.PN ---
Subjective - Date & Time of Evaluation Date of Evaluation: 09/06/17 Time of Evaluation: 07:10 - Subjective Subjective: Patient seen and examined beside with Dr Higgins. Patient sitting on chair, using O2 NC. Reports feeling better, able to do PT yesterday but with mild SOB on exertion. Denies chest pain, fever, cough, vomiting, diarrhea. Objective - Vital Signs/Intake and Output Vital Signs (last 24 hours): Temp Pulse Resp BP Pulse Ox 97.7 F 77 19 101/70 98 09/06/17 04:00 09/06/17 08:04 09/06/17 06:00 09/06/17 08:04 09/06/17 06:00 Intake and Output: 09/06/17 09/06/17 06:59 18:59 Intake Total 240 Balance 240 - Medications Medications: Current Medications Acetaminophen (Tylenol 325mg Tab) 650 mg PO Q6H PRN PRN Reason: Pain, Mild (1-3) Last Admin: 09/06/17 01:46 Dose: 650 mg Allopurinol (Zyloprim) 100 mg PO DAILY [facility] Last Admin: 09/06/17 08:04 Dose: 100 mg Digoxin (Digoxin) 0.125 mg PO DAILY [facility] Last Admin: 09/06/17 08:02 Dose: 0.125 mg Docusate Sodium (Colace) 100 mg PO BID [facility] Last Admin: 09/06/17 08:01 Dose: 100 mg Ergocalciferol (Drisdol 50,000 Intl Units Cap) 1 cap PO FR [facility] Ferrous Sulfate (Feosol) 325 mg PO DAILY [facility] Last Admin: 09/06/17 08:02 Dose: 325 mg Furosemide (Lasix) 40 mg IVP Q12H [facility] Last Admin: 09/05/17 22:27 Dose: 40 mg Lisinopril (Zestril) 10 mg PO DAILY [facility] Last Admin: 09/06/17 08:04 Dose: 10 mg Metoprolol Tartrate (Lopressor) 25 mg PO Q8 [facility] Last Admin: 09/06/17 08:03 Dose: 25 mg Oxycodone/Acetaminophen (Percocet 5/325 Mg Tab) 1 tab PO Q4 PRN PRN Reason: pain 1-5 Stop: 09/08/17 00:35 Last Admin: 09/06/17 07:59 Dose: 1 tab Potassium Chloride (Klor-Con 10) 10 meq PO DAILY [facility] Last Admin: 09/06/17 08:02 Dose: 10 meq Rivaroxaban (Xarelto) 20 mg PO HS [facility] PRN Reason: Protocol Last Admin: 09/05/17 22:26 Dose: 20 mg - Labs Labs: 09/06/17 04:20 09/06/17 04:20 PT 17.4 Seconds (9.8-13.1) H 09/06/17 04:20 INR 1.6 (0.9-1.2) H 09/06/17 04:20 APTT 33.8 Seconds (25.6-37.1) 09/06/17 04:20 - Constitutional Appears: No Acute Distress - Head Exam Head Exam: ATRAUMATIC, NORMOCEPHALIC - Eye Exam Eye Exam: Normal appearance - Respiratory Exam Respiratory Exam: Decreased Breath Sounds, Rales Additional comments: bibasal - Cardiovascular Exam Cardiovascular Exam: Irregular Rhythm, +S1, +S2 Additional comments: Breast Exam: refused by patient. - GI/Abdominal Exam GI & Abdominal Exam: Soft, Normal Bowel Sounds. absent: Tenderness - Extremities Exam Extremities Exam: Pedal Edema (bilateral 2+) - Neurological Exam Neurological Exam: Alert, Awake, Oriented x3 - Psychiatric Exam Psychiatric exam: Normal Affect, Normal Mood - Skin Skin Exam: Normal Color Assessment and Plan - Assessment and Plan (Free Text) Plan: Assessment/Plan 1) Respiratory failure -resolved Secondary to Acute CHF and pleural effusion -admitted ICU -resolving with diuretics, O2 NC -CXR: B/L pleural effusion -CXR today: no significant change compared with 2 days ago -Pulmonology consult appreciated 2) Diastolic CHF exacerbation - Pro BNP of 5190 - Echo: EF normal. Dilated cardiomyopathy. Pulmonary HTN -c/w Lasix -Cardiology consult suggested 3) Bilateral Pleural effusion -secondary CHF vs metastatic breast Ca -CXR: mod b/l pleural effusions -offered patient option of thoracentesis and refuses at this time -Pulmonology consult apprecaited 4) Atrial Fibrilation Chronic on Xarelto -c/w digoxin, metroprolol 5) HTN Controlled -c/w home meds 6) Left breast mass -secondary to high probability of breast CA with bone mets -pt refuses work up for breast mass -pt refuses physical exam for medical staff except dr higgins and dr barry. 7) DVT prophylaxis -On anticoagulation with Xarelto
--- NOTE | 2017-09-06 09:28 | CP.PCM.PN ---
Subjective - Date & Time of Evaluation Date of Evaluation: 09/06/17 Time of Evaluation: 09:31 - Subjective Subjective: FEELS BETTER TODAY SOB LESS COUGH LESS REFUSES THORACENTESES/BREAST MASS EVALUATION WANTS TO GO TO [facility] AT [facility] Objective - Vital Signs/Intake and Output Vital Signs (last 24 hours): Temp Pulse Resp BP Pulse Ox 98.7 F 77 19 101/70 100 09/06/17 08:00 09/06/17 08:04 09/06/17 08:00 09/06/17 08:04 09/06/17 08:00 Intake and Output: 09/06/17 09/06/17 06:59 18:59 Intake Total 240 Balance 240 - Medications Medications: Current Medications Acetaminophen (Tylenol 325mg Tab) 650 mg PO Q6H PRN PRN Reason: Pain, Mild (1-3) Last Admin: 09/06/17 01:46 Dose: 650 mg Allopurinol (Zyloprim) 100 mg PO DAILY [facility] Last Admin: 09/06/17 08:04 Dose: 100 mg Digoxin (Digoxin) 0.125 mg PO DAILY [facility] Last Admin: 09/06/17 08:02 Dose: 0.125 mg Docusate Sodium (Colace) 100 mg PO BID [facility] Last Admin: 09/06/17 08:01 Dose: 100 mg Ergocalciferol (Drisdol 50,000 Intl Units Cap) 1 cap PO FR [facility] Ferrous Sulfate (Feosol) 325 mg PO DAILY [facility] Last Admin: 09/06/17 08:02 Dose: 325 mg Furosemide (Lasix) 40 mg IVP Q12H [facility] Last Admin: 09/05/17 22:27 Dose: 40 mg Lisinopril (Zestril) 10 mg PO DAILY [facility] Last Admin: 09/06/17 08:04 Dose: 10 mg Metoprolol Tartrate (Lopressor) 25 mg PO Q8 [facility] Last Admin: 09/06/17 08:03 Dose: 25 mg Oxycodone/Acetaminophen (Percocet 5/325 Mg Tab) 1 tab PO Q4 PRN PRN Reason: pain 1-5 Stop: 09/08/17 00:35 Last Admin: 09/06/17 07:59 Dose: 1 tab Potassium Chloride (Klor-Con 10) 10 meq PO DAILY [facility] Last Admin: 09/06/17 08:02 Dose: 10 meq Rivaroxaban (Xarelto) 20 mg PO HS [facility] PRN Reason: Protocol Last Admin: 09/05/17 22:26 Dose: 20 mg - Labs Labs: 09/06/17 04:20 09/06/17 04:20 PT 17.4 Seconds (9.8-13.1) H 09/06/17 04:20 INR 1.6 (0.9-1.2) H 09/06/17 04:20 APTT 33.8 Seconds (25.6-37.1) 09/06/17 04:20 - Constitutional Appears: No Acute Distress - Head Exam Head Exam: ATRAUMATIC, NORMAL INSPECTION, NORMOCEPHALIC - Eye Exam Eye Exam: EOMI, Normal appearance, PERRL Pupil Exam: NORMAL ACCOMODATION, PERRL - ENT Exam ENT Exam: Mucous Membranes Moist, Normal Exam - Neck Exam Neck Exam: Full ROM, Normal Inspection. absent: Lymphadenopathy - Respiratory Exam Respiratory Exam: Decreased Breath Sounds, Prolonged Expiratory Phase, Rales, NORMAL BREATHING PATTERN - Cardiovascular Exam Cardiovascular Exam: REGULAR RHYTHM, +S1, +S2. absent: Murmur - GI/Abdominal Exam GI & Abdominal Exam: Soft, Normal Bowel Sounds. absent: Tenderness - Rectal Exam Rectal Exam: NORMAL INSPECTION - Extremities Exam Extremities Exam: Full ROM, Normal Capillary Refill, Normal Inspection, Pedal Edema. absent: Joint Swelling - Back Exam Back Exam: NORMAL INSPECTION - Neurological Exam Neurological Exam: Alert, Awake, CN II-XII Intact, Normal Gait, Oriented x3 - Psychiatric Exam Psychiatric exam: Normal Affect, Normal Mood - Skin Skin Exam: Dry, Intact, Normal Color, Warm Assessment and Plan - Assessment and Plan (Free Text) Assessment: CHF WITH PLEURAL EFFUSIONS L BREAST MASS--R/O MALIGNANCY R/O UPPER RESP INFECTION Plan: CONTINUE DIURETIC RX ADD EMPERIC ANTIBIOTIC RX WITH ROCEPHIN THORACENTESES SUGGESTED BUT DECLINED BY PT
--- NOTE | 2017-09-06 11:59 | RAD ---
PROCEDURE: CHEST RADIOGRAPH, 1 VIEW HISTORY: pleural effusion COMPARISON: Frontal chest radiograph 09/04/2017. FINDINGS: LUNGS: Persistent opacification of the bilateral mid inferior lung zones suggests combination of features including bilateral pleural effusions with underlying atelectasis or infiltrate not excluded. The pattern is arguably worsened in the interval. Mild CHF pattern persists. No pneumothorax bilaterally. PLEURA: As above. CARDIOVASCULAR: As above. OSSEOUS STRUCTURES: No significant abnormalities. VISUALIZED UPPER ABDOMEN: Normal. OTHER FINDINGS: None. IMPRESSION: Persistent bilateral pleural effusions occupying the mid inferior lung zones bilaterally with underlying atelectasis or infiltrate not excluded. Slight increase in these features is in question at this time rather than improvement. Mild CHF pattern persists.
--- NOTE | 2017-09-06 12:24 | CP.PCM.PN ---
Subjective - Date & Time of Evaluation Date of Evaluation: 09/06/17 Time of Evaluation: 12:23 - Subjective Subjective: would like to peacefully and doesn't want any aggressive invasive w/u Objective - Vital Signs/Intake and Output Vital Signs (last 24 hours): Temp Pulse Resp BP Pulse Ox 98.7 F 84 19 96/54 L 95 09/06/17 08:00 09/06/17 10:00 09/06/17 10:00 09/06/17 10:00 09/06/17 10:00 Intake and Output: 09/06/17 09/06/17 06:59 18:59 Intake Total 240 Balance 240 - Medications Medications: Current Medications Acetaminophen (Tylenol 325mg Tab) 650 mg PO Q6H PRN PRN Reason: Pain, Mild (1-3) Last Admin: 09/06/17 01:46 Dose: 650 mg Allopurinol (Zyloprim) 100 mg PO DAILY [facility] Last Admin: 09/06/17 08:04 Dose: 100 mg Digoxin (Digoxin) 0.125 mg PO DAILY [facility] Last Admin: 09/06/17 08:02 Dose: 0.125 mg Docusate Sodium (Colace) 100 mg PO BID [facility] Last Admin: 09/06/17 08:01 Dose: 100 mg Ergocalciferol (Drisdol 50,000 Intl Units Cap) 1 cap PO FR [facility] Ferrous Sulfate (Feosol) 325 mg PO DAILY [facility] Last Admin: 09/06/17 08:02 Dose: 325 mg Furosemide (Lasix) 40 mg IV DAILY [facility] Ceftriaxone Sodium 1 gm/ (Sodium Chloride) 100 mls @ 100 mls/hr IVPB DAILY [facility] PRN Reason: Protocol Lisinopril (Zestril) 2.5 mg PO DAILY [facility] Metoprolol Succinate (Toprol Xl) 25 mg PO DAILY [facility] Oxycodone/Acetaminophen (Percocet 5/325 Mg Tab) 1 tab PO Q4 PRN PRN Reason: pain 1-5 Stop: 09/08/17 00:35 Last Admin: 09/06/17 07:59 Dose: 1 tab Potassium Chloride (Klor-Con 10) 10 meq PO DAILY [facility] Last Admin: 09/06/17 08:02 Dose: 10 meq Rivaroxaban (Xarelto) 20 mg PO [facility] PRN Reason: Protocol Last Admin: 09/05/17 22:26 Dose: 20 mg - Labs Labs: 09/06/17 04:20 09/06/17 04:20 PT 17.4 Seconds (9.8-13.1) H 09/06/17 04:20 INR 1.6 (0.9-1.2) H 09/06/17 04:20 APTT 33.8 Seconds (25.6-37.1) 09/06/17 04:20 - Constitutional Appears: Well - Head Exam Head Exam: ATRAUMATIC, NORMAL INSPECTION, NORMOCEPHALIC - Eye Exam Eye Exam: EOMI, Normal appearance, PERRL Pupil Exam: NORMAL ACCOMODATION, PERRL - ENT Exam ENT Exam: Mucous Membranes Moist, Normal Exam - Neck Exam Neck Exam: Full ROM, Normal Inspection. absent: Lymphadenopathy - Respiratory Exam Respiratory Exam: Rales - Cardiovascular Exam Cardiovascular Exam: Gallop, REGULAR RHYTHM, +S1, +S2, Murmur - GI/Abdominal Exam GI & Abdominal Exam: Soft, Normal Bowel Sounds. absent: Tenderness - Extremities Exam Extremities Exam: Full ROM, Normal Capillary Refill, Normal Inspection. absent : Joint Swelling, Pedal Edema - Back Exam Back Exam: NORMAL INSPECTION - Neurological Exam Neurological Exam: Alert, Awake, CN II-XII Intact, Normal Gait, Oriented x3 - Psychiatric Exam Psychiatric exam: Normal Affect, Normal Mood - Skin Skin Exam: Dry, Intact, Normal Color, Warm Assessment and Plan (1) Atrial fibrillation Status: Acute (2) CHF (congestive heart failure) Status: Acute (3) Pleural effusion, bilateral Status: Acute (4) HTN (hypertension) Status: Acute
[2017-09-07] MEDS: Oxycodone/Acetaminophen 5/325 mg Tab PO PRN ×4 (00:40→16:33)
[2017-09-07 05:44] LABS: BASO # 0.1 K/uL (0.0-0.2); BASO % 1.1 % (0.0-2.0); EOS # 0.2 K/uL (0.0-0.7); EOS % 2.8 % (0.0-4.0); HEMOGLOBIN 11.2 g/dL (12.0-16.0); LYMPH # 1.8 K/uL (1.0-4.3); LYMPH % 23.1 % (20.0-40.0); MEAN CORPUSCULAR HEMOGLOBIN 31.7 pg (27.0-31.0); MEAN PLATELET VOLUME 7.7 fl (7.2-11.7); MONO # 0.8 K/uL (0.0-0.8); MONO % 10.7 % (0.0-10.0); NEUT # 4.8 K/uL (1.8-7.0); NEUT % 62.3 % (50.0-75.0); RBC 3.55 Mil/uL (3.80-5.20); RED CELL DISTRIBUTION WIDTH 16.2 % (11.5-14.5); WHITE BLOOD COUNT 7.6 K/uL (4.8-10.8)
[2017-09-07 05:56] LABS: ALB/GLOB RATIO 0.9 (1.0-2.1); ALBUMIN 3.4 g/dL (3.5-5.0); CALCIUM 9.5 mg/dL (8.4-10.2)
[2017-09-07] MEDS: Digoxin 125 mcg (0.125 mg) Tab PO SCH (08:42)
[2017-09-07] MEDS: Potassium Chloride 10 mEq ER Tab PO SCH (08:42)
[2017-09-07] MEDS: Metoprolol Succinate 25 mg XL Tab PO SCH (08:42)
--- NOTE | 2017-09-07 08:55 | CP.PCM.PN ---
Subjective - Date & Time of Evaluation Date of Evaluation: 09/07/17 Time of Evaluation: 07:20 - Subjective Subjective: Patient seen and examined beside with Dr Higgins. Patient sitting on chair, using O2 NC, noted with mild SOB. Patient with low BP in the morning, but asymptomatic on sitting position and recent BP 104/65. Patient reports feeling better. Denies chest pain, fever, cough, vomiting, and diarrhea. Pedal edema mild improvement. Lasix hold. BP meds hold and will be given according BP parameters. Will transfer patient to Telemetry Objective - Vital Signs/Intake and Output Vital Signs (last 24 hours): Temp Pulse Resp BP Pulse Ox 98.2 F 92 H 40 H 111/69 95 09/07/17 08:00 09/07/17 08:42 09/07/17 08:00 09/07/17 08:42 09/07/17 08:00 Intake and Output: 09/07/17 09/07/17 06:59 18:59 Intake Total 240 Balance 240 - Medications Medications: Current Medications Acetaminophen (Tylenol 325mg Tab) 650 mg PO Q6H PRN PRN Reason: Pain, Mild (1-3) Last Admin: 09/06/17 01:46 Dose: 650 mg Allopurinol (Zyloprim) 100 mg PO DAILY [facility] Last Admin: 09/07/17 08:43 Dose: 100 mg Digoxin (Digoxin) 0.125 mg PO DAILY [facility] Last Admin: 09/07/17 08:42 Dose: 0.125 mg Docusate Sodium (Colace) 100 mg PO BID [facility] Last Admin: 09/07/17 08:41 Dose: 100 mg Ergocalciferol (Drisdol 50,000 Intl Units Cap) 1 cap PO FR [facility] Ferrous Sulfate (Feosol) 325 mg PO DAILY [facility] Last Admin: 09/07/17 08:42 Dose: 325 mg Furosemide (Lasix) 40 mg IV DAILY [facility] Last Admin: 09/07/17 08:41 Dose: 40 mg Ceftriaxone Sodium 1 gm/ (Sodium Chloride) 100 mls @ 100 mls/hr IVPB DAILY [facility] PRN Reason: Protocol Last Admin: 09/07/17 08:43 Dose: 100 mls/hr Lisinopril (Zestril) 2.5 mg PO DAILY [facility] Metoprolol Succinate (Toprol Xl) 25 mg PO DAILY [facility] Last Admin: 09/07/17 08:42 Dose: 25 mg Oxycodone/Acetaminophen (Percocet 5/325 Mg Tab) 1 tab PO Q4 PRN PRN Reason: pain 1-5 Stop: 09/08/17 00:35 Last Admin: 09/07/17 08:51 Dose: 1 tab Potassium Chloride (Klor-Con 10) 10 meq PO DAILY [facility] Last Admin: 09/07/17 08:42 Dose: 10 meq Rivaroxaban (Xarelto) 20 mg PO HS [facility] PRN Reason: Protocol Last Admin: 09/06/17 21:58 Dose: 20 mg - Labs Labs: 09/07/17 04:20 09/07/17 04:20 PT 17.4 Seconds (9.8-13.1) H 09/06/17 04:20 INR 1.6 (0.9-1.2) H 09/06/17 04:20 APTT 33.8 Seconds (25.6-37.1) 09/06/17 04:20 - Constitutional Appears: No Acute Distress - Head Exam Head Exam: ATRAUMATIC, NORMOCEPHALIC - Eye Exam Eye Exam: Normal appearance - ENT Exam ENT Exam: Mucous Membranes Moist - Respiratory Exam Respiratory Exam: Decreased Breath Sounds (bibasal), Rales (scattered). absent : Rhonchi, Wheezes Additional comments: Breast Exam: refused by patient. possible malignancy left breast - Cardiovascular Exam Cardiovascular Exam: REGULAR RHYTHM, +S1, +S2, Murmur Additional comments: systolic 2/6 left sternal border - GI/Abdominal Exam GI & Abdominal Exam: Soft, Normal Bowel Sounds. absent: Tenderness - Extremities Exam Extremities Exam: Pedal Edema (b/l 2+) - Neurological Exam Neurological Exam: Alert, Awake - Psychiatric Exam Psychiatric exam: Normal Affect, Normal Mood - Skin Skin Exam: absent: Rash Assessment and Plan - Assessment and Plan (Free Text) Plan: Assessment/Plan 1) Respiratory failure -resolved Secondary to Acute CHF and pleural effusion -admitted ICU -resolving with diuretics, O2 NC -CXR: B/L pleural effusion -CXR : no significant change compared with 2 days ago -Pulmonology consult appreciated: empiric rocephin added -will transfer to Tele 2) Diastolic CHF exacerbation - Pro BNP of 5190 - Echo: EF normal. Dilated cardiomyopathy. Pulmonary HTN -hold Lasix due to hypotension and elevation Cr -Cardiology consult appreciated 3) Bilateral Pleural effusion -secondary CHF vs metastatic breast Ca -CXR: mod b/l pleural effusions -offered patient option of thoracentesis and refuses at this time -Pulmonology consult appreciated 4) Atrial Fibrilation Chronic on Xarelto -c/w digoxin, metroprolol 5) HTN Controlled -c/w home meds 6) Left breast mass -secondary to high probability of breast CA with bone mets -pt refuses work up for breast mass -pt refuses physical exam for medical staff except dr higgins and dr barry. 7) DVT prophylaxis -On anticoagulation with Xarelto
--- NOTE | 2017-09-07 09:39 | PQF GENQUE ---
This form is a permanent part of the medical record 09/07/17 Dr. Field, Pt has documented " Superimposed Pneumonia" noted as rule out . Please clarify status of this condition AFTER WORKUP: Patient has condition Condition was ruled out Please provide corresponding diagnosis for patient's clinical picture and associated treatment Patient had condition which is now resolved Other (please specify) Clinically unable to determine Unknown Admitted with worsening SOB and leg swelling. Initial CXR: Bilateral pleural effusions. Mild pulmonary vascular congestion pattern may indicate CHF. CT CHEST: Bilateral pleural effusion with compressive atelectasis. Superimposed pneumonia not entirely excluded. Probable right sided heart failure. Left breast mass highly suspicious for malignancy. Multiple lytic lesions c/w metastasis. Pulmonary nodules. Started on IVAB Clarification of your documentation is requested to better reflect the severity of illness and intensity of treatment of your patient. Indicators present PHYSICIAN'S RESPONSE Based on your medical judgment of the clinical indicators outlined above please clarify the following: [] Practitioner response [] If unable to determine, please check the box, sign and date. Present On Admission (POA) Indicator: [] Present at the time of admission [] Not present at the time of admission [] Clinically Undetermined In responding to this query, please exercise your independent professional judgment. The fact that a question is asked does not imply that any particular answer is desired or expected. Thank you for your clarification on this documentation. If you have any questions please call:extension [phone] * Thank you, Ca Cash RN [facility]
--- NOTE | 2017-09-07 17:47 | CP.PCM.PN ---
Subjective - Date & Time of Evaluation Date of Evaluation: 09/07/17 Time of Evaluation: 17:45 - Subjective Subjective: feeling fine lasix on hold 2' to low bp being transferred to telemetry doesn't want any invasive/ aggressive w/u Objective - Vital Signs/Intake and Output Vital Signs (last 24 hours): Temp Pulse Resp BP Pulse Ox 98.3 F 107 H 29 H 148/85 99 09/07/17 16:00 09/07/17 16:00 09/07/17 16:00 09/07/17 16:00 09/07/17 14:00 Intake and Output: 09/07/17 09/07/17 06:59 18:59 Intake Total 240 Balance 240 - Medications Medications: Current Medications Acetaminophen (Tylenol 325mg Tab) 650 mg PO Q6H PRN PRN Reason: Pain, Mild (1-3) Last Admin: 09/06/17 01:46 Dose: 650 mg Allopurinol (Zyloprim) 100 mg PO DAILY [facility] Last Admin: 09/07/17 08:43 Dose: 100 mg Digoxin (Digoxin) 0.125 mg PO DAILY [facility] Last Admin: 09/07/17 08:42 Dose: 0.125 mg Docusate Sodium (Colace) 100 mg PO BID [facility] Last Admin: 09/07/17 16:32 Dose: 100 mg Ergocalciferol (Drisdol 50,000 Intl Units Cap) 1 cap PO [facility] Ferrous Sulfate (Feosol) 325 mg PO DAILY [facility] Last Admin: 09/07/17 08:42 Dose: 325 mg Furosemide (Lasix) 40 mg IV DAILY [facility] Last Admin: 09/07/17 08:41 Dose: Not Given Ceftriaxone Sodium 1 gm/ (Sodium Chloride) 100 mls @ 100 mls/hr IVPB DAILY [facility] PRN Reason: Protocol Last Admin: 09/07/17 08:43 Dose: 100 mls/hr Lisinopril (Zestril) 2.5 mg PO DAILY [facility] Last Admin: 09/07/17 09:09 Dose: Not Given Metoprolol Succinate (Toprol Xl) 25 mg PO DAILY [facility] Last Admin: 09/07/17 08:42 Dose: Not Given Ondansetron HCl (Zofran Odt) 4 mg PO Q8H PRN PRN Reason: Nausea/Vomiting Last Admin: 09/07/17 10:29 Dose: 4 mg Oxycodone/Acetaminophen (Percocet 5/325 Mg Tab) 1 tab PO Q4 PRN PRN Reason: pain 1-5 Stop: 09/08/17 00:35 Last Admin: 09/07/17 16:33 Dose: 1 tab Potassium Chloride (Klor-Con 10) 10 meq PO DAILY [facility] Last Admin: 09/07/17 08:42 Dose: 10 meq Rivaroxaban (Xarelto) 20 mg PO HS [facility] PRN Reason: Protocol Last Admin: 09/06/17 21:58 Dose: 20 mg - Labs Labs: 09/07/17 04:20 09/07/17 04:20 PT 17.4 Seconds (9.8-13.1) H 09/06/17 04:20 INR 1.6 (0.9-1.2) H 09/06/17 04:20 APTT 33.8 Seconds (25.6-37.1) 09/06/17 04:20 - Constitutional Appears: Well - Head Exam Head Exam: ATRAUMATIC, NORMAL INSPECTION, NORMOCEPHALIC - Eye Exam Eye Exam: EOMI, Normal appearance, PERRL Pupil Exam: NORMAL ACCOMODATION, PERRL - ENT Exam ENT Exam: Mucous Membranes Moist, Normal Exam - Neck Exam Neck Exam: Full ROM, Normal Inspection. absent: Lymphadenopathy - Respiratory Exam Respiratory Exam: Clear to Ausculation Bilateral, NORMAL BREATHING PATTERN - Cardiovascular Exam Cardiovascular Exam: REGULAR RHYTHM, +S1, +S2, Murmur - GI/Abdominal Exam GI & Abdominal Exam: Soft, Normal Bowel Sounds. absent: Tenderness - Extremities Exam Extremities Exam: Full ROM, Normal Capillary Refill, Normal Inspection. absent : Joint Swelling, Pedal Edema - Back Exam Back Exam: NORMAL INSPECTION - Neurological Exam Neurological Exam: Alert, Awake, CN II-XII Intact, Normal Gait, Oriented x3 - Psychiatric Exam Psychiatric exam: Normal Affect, Normal Mood - Skin Skin Exam: Dry, Intact, Normal Color, Warm Assessment and Plan (1) Atrial fibrillation Assessment & Plan: digoxin bb xarelto Status: Acute (2) CHF (congestive heart failure) Assessment & Plan: bb,acei lasix on hold 2' to low bp digoxin Status: Acute (3) Pleural effusion, bilateral Status: Acute (4) HTN (hypertension) Status: Acute
[2017-09-08 05:31] LABS: HEMOGLOBIN 11.5 g/dL (12.0-16.0); MEAN CELL VOLUME 99.5 fl (81.0-99.0); MEAN CORPUSCULAR HEMOGLOBIN 31.7 pg (27.0-31.0); MEAN CORPUSCULAR HGB CONC 31.8 g/dL (33.0-37.0); RBC 3.62 Mil/uL (3.80-5.20); RED CELL DISTRIBUTION WIDTH 15.9 % (11.5-14.5); WHITE BLOOD COUNT 8.2 K/uL (4.8-10.8)
[2017-09-08 05:51] LABS: CALCIUM 9.4 mg/dL (8.4-10.2)
[2017-09-08] MEDS: Oxycodone/Acetaminophen 5/325 mg Tab PO PRN ×2 (06:10→22:59)
[2017-09-08] MEDS: Digoxin 125 mcg (0.125 mg) Tab PO SCH (08:08)
[2017-09-08] MEDS ORDERED: Sod Polystyrene Sulf 15 gm/60 ml Susp PO ONE (08:34)
--- NOTE | 2017-09-08 08:51 | CP.PCM.PN ---
Subjective - Date & Time of Evaluation Date of Evaluation: 09/08/17 Time of Evaluation: 07:20 - Subjective Subjective: Patient seen and examined beside with Dr Higgins. Patient sitting on chair, using O2 NC, reports some body aches. Denies chest pain, n,v,abd pain. Patient still refusing thoracentesis and work up for left breast mass. Lasix hold due to low BP. Patient asymptomatic. Will transfer patient to Telemetry Objective - Vital Signs/Intake and Output Vital Signs (last 24 hours): Temp Pulse Resp BP Pulse Ox 98 F 104 H 23 104/86 95 09/08/17 08:00 09/08/17 08:00 09/08/17 08:00 09/08/17 08:11 09/08/17 06:00 Intake and Output: 09/08/17 09/08/17 06:59 18:59 Intake Total 240 Output Total 300 Balance -60 - Medications Medications: Current Medications Acetaminophen (Tylenol 325mg Tab) 650 mg PO Q6H PRN PRN Reason: Pain, Mild (1-3) Last Admin: 09/07/17 21:42 Dose: 650 mg Allopurinol (Zyloprim) 100 mg PO DAILY [facility] Last Admin: 09/08/17 08:10 Dose: 100 mg Digoxin (Digoxin) 0.125 mg PO DAILY [facility] Last Admin: 09/08/17 08:08 Dose: 0.125 mg Docusate Sodium (Colace) 100 mg PO BID [facility] Last Admin: 09/08/17 08:08 Dose: 100 mg Ergocalciferol (Drisdol 50,000 Intl Units Cap) 1 cap PO [facility] Ferrous Sulfate (Feosol) 325 mg PO DAILY [facility] Last Admin: 09/08/17 08:09 Dose: 325 mg Furosemide (Lasix) 40 mg IV DAILY [facility] Last Admin: 09/08/17 08:11 Dose: 40 mg Ceftriaxone Sodium 1 gm/ (Sodium Chloride) 100 mls @ 100 mls/hr IVPB DAILY [facility] PRN Reason: Protocol Last Admin: 09/08/17 08:09 Dose: 100 mls/hr Lisinopril (Zestril) 2.5 mg PO DAILY [facility] Last Admin: 09/07/17 09:09 Dose: Not Given Metoprolol Succinate (Toprol Xl) 25 mg PO DAILY [facility] Last Admin: 09/07/17 08:42 Dose: Not Given Ondansetron HCl (Zofran Odt) 4 mg PO Q8H PRN PRN Reason: Nausea/Vomiting Last Admin: 09/07/17 10:29 Dose: 4 mg Oxycodone/Acetaminophen (Percocet 5/325 Mg Tab) 1 tab PO Q6 PRN PRN Reason: Pain, moderate (4-7) Stop: 09/11/17 06:03 Last Admin: 09/08/17 06:10 Dose: 1 tab Rivaroxaban (Xarelto) 20 mg PO HS [facility] PRN Reason: Protocol Last Admin: 09/07/17 21:41 Dose: 20 mg - Labs Labs: 09/08/17 04:30 09/08/17 04:30 PT 17.4 Seconds (9.8-13.1) H 09/06/17 04:20 INR 1.6 (0.9-1.2) H 09/06/17 04:20 APTT 33.8 Seconds (25.6-37.1) 09/06/17 04:20 - Constitutional Appears: Non-toxic, No Acute Distress - Head Exam Head Exam: ATRAUMATIC, NORMOCEPHALIC - Eye Exam Eye Exam: EOMI, Normal appearance - ENT Exam ENT Exam: Mucous Membranes Moist - Respiratory Exam Respiratory Exam: Decreased Breath Sounds Additional comments: bibasal and 2/3 lung zhang - Cardiovascular Exam Cardiovascular Exam: Irregular Rhythm, +S1, +S2 Additional comments: Breast Exam: refused by patient. possible malignancy left breast - GI/Abdominal Exam GI & Abdominal Exam: Soft, Normal Bowel Sounds. absent: Tenderness - Extremities Exam Extremities Exam: Pedal Edema (2+ b/l) - Back Exam Back Exam: NORMAL INSPECTION - Neurological Exam Neurological Exam: Alert, Awake, Oriented x3 - Psychiatric Exam Psychiatric exam: Normal Affect - Skin Skin Exam: Intact Assessment and Plan - Assessment and Plan (Free Text) Plan: Assessment/Plan 1) Diastolic CHF exacerbation - Pro BNP of 5190 - Echo: EF normal. Dilated cardiomyopathy. Pulmonary HTN -hold Lasix due to hypotension and elevation Cr -Cardiology consult appreciated -will transfer to Tele 2) Bilateral Pleural effusion -secondary CHF vs metastatic breast Ca -CXR: mod b/l pleural effusions -offered patient option of thoracentesis and refuses at this time -Pulmonology consult appreciated: empiric rocephin added 3) Atrial Fibrilation Chronic on Xarelto -c/w digoxin, metroprolol 4) HTN Controlled -c/w home meds 5) Left breast mass -secondary to high probability of breast CA with bone mets -pt refuses work up for breast mass -pt refuses physical exam for medical staff except dr higgins and dr barry. 6) DVT prophylaxis -On anticoagulation with Xarelto
--- NOTE | 2017-09-08 09:41 | CP.PCM.PN ---
Subjective - Date & Time of Evaluation Date of Evaluation: 09/08/17 Time of Evaluation: 09:41 - Subjective Subjective: PT REFUSES FURTHER PULMONARY INTERVENTION Objective - Vital Signs/Intake and Output Vital Signs (last 24 hours): Temp Pulse Resp BP Pulse Ox 98 F 98 H 24 104/86 95 09/08/17 08:00 09/08/17 08:00 09/08/17 08:00 09/08/17 08:11 09/08/17 06:00 Intake and Output: 09/08/17 09/08/17 06:59 18:59 Intake Total 240 Output Total 300 Balance -60 - Medications Medications: Current Medications Acetaminophen (Tylenol 325mg Tab) 650 mg PO Q6H PRN PRN Reason: Pain, Mild (1-3) Last Admin: 09/07/17 21:42 Dose: 650 mg Allopurinol (Zyloprim) 100 mg PO DAILY [facility] Last Admin: 09/08/17 08:10 Dose: 100 mg Digoxin (Digoxin) 0.125 mg PO DAILY [facility] Last Admin: 09/08/17 08:08 Dose: 0.125 mg Docusate Sodium (Colace) 100 mg PO BID [facility] Last Admin: 09/08/17 08:08 Dose: 100 mg Ergocalciferol (Drisdol 50,000 Intl Units Cap) 1 cap PO [facility] Ferrous Sulfate (Feosol) 325 mg PO DAILY [facility] Last Admin: 09/08/17 08:09 Dose: 325 mg Furosemide (Lasix) 40 mg IV DAILY [facility] Last Admin: 09/08/17 08:11 Dose: 40 mg Ceftriaxone Sodium 1 gm/ (Sodium Chloride) 100 mls @ 100 mls/hr IVPB DAILY [facility] PRN Reason: Protocol Last Admin: 09/08/17 08:09 Dose: 100 mls/hr Lisinopril (Zestril) 2.5 mg PO DAILY [facility] Last Admin: 09/07/17 09:09 Dose: Not Given Metoprolol Succinate (Toprol Xl) 25 mg PO DAILY [facility] Last Admin: 09/07/17 08:42 Dose: Not Given Ondansetron HCl (Zofran Odt) 4 mg PO Q8H PRN PRN Reason: Nausea/Vomiting Last Admin: 09/07/17 10:29 Dose: 4 mg Oxycodone/Acetaminophen (Percocet 5/325 Mg Tab) 1 tab PO Q6 PRN PRN Reason: Pain, moderate (4-7) Stop: 09/11/17 06:03 Last Admin: 09/08/17 06:10 Dose: 1 tab Rivaroxaban (Xarelto) 20 mg PO HS [facility] PRN Reason: Protocol Last Admin: 09/07/17 21:41 Dose: 20 mg - Labs Labs: 09/08/17 04:30 09/08/17 04:30 PT 17.4 Seconds (9.8-13.1) H 09/06/17 04:20 INR 1.6 (0.9-1.2) H 09/06/17 04:20 APTT 33.8 Seconds (25.6-37.1) 09/06/17 04:20 - Constitutional Appears: Chronically Ill - Head Exam Head Exam: ATRAUMATIC, NORMAL INSPECTION, NORMOCEPHALIC - Eye Exam Eye Exam: EOMI, Normal appearance, PERRL Pupil Exam: NORMAL ACCOMODATION, PERRL - ENT Exam ENT Exam: Mucous Membranes Moist, Normal Exam - Neck Exam Neck Exam: Full ROM, Normal Inspection. absent: Lymphadenopathy - Respiratory Exam Respiratory Exam: Decreased Breath Sounds, Rales, NORMAL BREATHING PATTERN - Cardiovascular Exam Cardiovascular Exam: REGULAR RHYTHM, +S1, +S2. absent: Murmur - GI/Abdominal Exam GI & Abdominal Exam: Soft, Normal Bowel Sounds. absent: Tenderness - Rectal Exam Rectal Exam: NORMAL INSPECTION - Extremities Exam Extremities Exam: Full ROM, Normal Capillary Refill, Normal Inspection. absent : Joint Swelling, Pedal Edema - Back Exam Back Exam: NORMAL INSPECTION - Neurological Exam Neurological Exam: Alert, Awake, CN II-XII Intact, Normal Gait, Oriented x3 - Psychiatric Exam Psychiatric exam: Normal Affect, Normal Mood - Skin Skin Exam: Dry, Intact, Normal Color, Warm Assessment and Plan - Assessment and Plan (Free Text) Assessment: CHF PLEURAL EFFUSION BREAST MASS R/O MALIGNANCY Plan: WILL SIGN OFF CASE AND SEE AGAIN AT YOUR REQUEST PROGNOSIS IS EXTREMELY GUARDED
[2017-09-08] MEDS ORDERED: Metoprolol 1 mg/ml Inj IVP ONE (12:03)
[2017-09-08] MEDS ORDERED: Albuterol-Ipratrop 3 mg / 0.5 (3 ml) UD INH STA (12:04)
[2017-09-08] MEDS: Metoprolol Succinate 25 mg XL Tab PO SCH (12:24)
[2017-09-08] MEDS ORDERED: Albuterol 0.083% Inhal Sol (2.5 mg/3 mL) UD INH ONE (12:41)
[2017-09-08] MEDS ORDERED: Ergocalciferol 50,000 Intl Units Cap PO SCH (22:18)
[2017-09-09] MEDS ORDERED: Flumazenil 0.1 mg/ml Inj (5ml) IVP STA (02:28)
[2017-09-09] MEDS ORDERED: Flumazenil 0.1 mg/ml Inj (5ml) IVP ONE (02:41)
[2017-09-09 02:48] LABS: ABG ALLEN TEST YES; ARTERIAL BLOOD GAS HCO3 24.5 mmol/L (21-28); ARTERIAL BLOOD GAS HEMOGLOBIN 11.5 g/dL (11.7-17.4); ARTERIAL BLOOD GAS O2 SAT 100.2 % (95-98); ARTERIAL BLOOD GAS PCO2 72 mm/Hg (35-45); ARTERIAL BLOOD GAS PH 7.21 (7.35-7.45); ARTERIAL BLOOD GAS PO2 155 mm/Hg (80-100)
[2017-09-09] MEDS ORDERED: Sodium Chloride 0.9% 500 ML IV ONE ×3 (02:52→04:50)
--- NOTE | 2017-09-09 02:55 | CP.PCM.PN ---
Subjective - Date & Time of Evaluation Date of Evaluation: 09/09/17 Time of Evaluation: 02:54 - Subjective Subjective: Attending: Faraz Higgins MD Wagon Driver Salesperson: Sahil Miller MD Pulmonogist: Dr Field Chief Complaint: SOB HPI: 77 years old female with hx of A Fib on Xarelto, HTN, left breast necrotic wound, CHF admitted on 09/04/17 with SOB, bilateral leg edema and dx with Acute CHF with bilateral pleural effusion. She was also found to be hypoxic and admitted to the ICU for management. In ICU the patient requested DNI and refused Thoracentesis as suggested by Pulmonary. Emperic antibiotics was ordered, and the patient was transferred to Telemetry. Here the patient complained of significant pain to the right breast and wanted something to calm her. She was given Toradol Intravenous and Xanax. One hour later the patient became difficult to arouse and with hypotension. PMH: HTN; A Fib; CHF; Left breast mass PSH: Denied Review of System limited because the patient was unresponsive Labs: ABG: ph 7.21/72/155/24 on NRBM Exam: The patient in [place] position in bed, only responding to painful stimuli with BP 66/47mmhg and Sao2 in the 80s and a NRBM being placed Resp: decreased breath sound at the bases with distant breath sounds Breast: left breast with mass 8CM foul smelling with necrotic patches CVS: S1 S2 irregular and tachycardic Abdomen: Obese with decreased bowel sounds Ext: Bilateral leg edema Neuro; Unresponsive, no facial droop, motor tone conserved I&P: #. AMS secondary to Benzodiazepine -Romazacon IV was given stat and the patient became awake in < than a minute #. Hypotension due intravascular depletion. - One Bolus of 500mls NS was unsuccessful in increasing the BP which had fallen to 54/45mmHg. A second Bolus started -TRANSFER back to ICU for possible Pressors #. Acute CHF - cardiology on consult - Judicious use of Diuretics and B-andrews/Ellis inhibitor #. Bilateral Pleural effusion - Pulmonary on consult - patient agreed to Thoracentesis while the Family was present , prior to this incident #. Left breast mass with possible metastatic breast disease - Patient is refusing work up #. Chronic A Fib - Metoprolol - Digoxin - xarelto Objective - Vital Signs/Intake and Output Vital Signs (last 24 hours): Temp Pulse Resp BP Pulse Ox 97.6 F 112 H 16 105/77 90 L 09/09/17 00:07 09/09/17 00:07 09/09/17 00:07 09/09/17 00:00 09/09/17 00:07 Intake and Output: 09/08/17 09/09/17 18:59 06:59 Output Total 100 Balance -100 - Medications Medications: Current Medications Acetaminophen (Tylenol 325mg Tab) 650 mg PO Q6H PRN PRN Reason: Pain, Mild (1-3) Last Admin: 09/07/17 21:42 Dose: 650 mg Allopurinol (Zyloprim) 100 mg PO DAILY [facility] Last Admin: 09/08/17 08:10 Dose: 100 mg Digoxin (Digoxin) 0.125 mg PO DAILY [facility] Last Admin: 09/08/17 08:08 Dose: 0.125 mg Docusate Sodium (Colace) 100 mg PO BID [facility] Last Admin: 09/08/17 18:24 Dose: Not Given Ergocalciferol (Drisdol 50,000 Intl Units Cap) 1 cap PO FR [facility] Last Admin: 09/08/17 21:34 Dose: 1 cap Ferrous Sulfate (Feosol) 325 mg PO DAILY [facility] Last Admin: 09/08/17 08:09 Dose: 325 mg Furosemide (Lasix) 40 mg IV DAILY [facility] Last Admin: 09/08/17 08:11 Dose: 40 mg Ceftriaxone Sodium 1 gm/ (Sodium Chloride) 100 mls @ 100 mls/hr IVPB DAILY [facility] PRN Reason: Protocol Last Admin: 09/08/17 08:09 Dose: 100 mls/hr Sodium Chloride (Sodium Chloride 0.9%) 500 mls @ 500 mls/hr IV .Q1H ONE Stop: 09/09/17 03:51 Lisinopril (Zestril) 2.5 mg PO DAILY [facility] Last Admin: 09/08/17 12:25 Dose: Not Given Metoclopramide HCl (Reglan) 10 mg IVP Q8 [facility] Last Admin: 09/09/17 01:38 Dose: Not Given Metoprolol Succinate (Toprol Xl) 25 mg PO DAILY [facility] Last Admin: 09/08/17 12:24 Dose: Not Given Ondansetron HCl (Zofran Odt) 4 mg PO Q8H PRN PRN Reason: Nausea/Vomiting Last Admin: 09/08/17 10:07 Dose: 4 mg Oxycodone/Acetaminophen (Percocet 5/325 Mg Tab) 1 tab PO Q6 PRN PRN Reason: Pain, moderate (4-7) Stop: 09/11/17 06:03 Last Admin: 09/08/17 22:59 Dose: 1 tab Rivaroxaban (Xarelto) 20 mg PO HS [facility] PRN Reason: Protocol Last Admin: 09/08/17 21:34 Dose: 20 mg - Labs Labs: 09/08/17 04:30 09/08/17 04:30 PT 17.4 Seconds (9.8-13.1) H 09/06/17 04:20 INR 1.6 (0.9-1.2) H 09/06/17 04:20 APTT 33.8 Seconds (25.6-37.1) 09/06/17 04:20
[2017-09-09] MEDS ORDERED: Sodium Chloride 3% for Inhalation 4 ML VIAL.NEB IH PRN (04:03)
[2017-09-09] MEDS ORDERED: Oxycodone/Acetaminophen 5/325 mg Tab PO PRN (04:03)
[2017-09-09] MEDS: Ergocalciferol 50,000 Intl Units Cap PO SCH (04:23)
[2017-09-09] MEDS: Dakin's Topical 0.25%-Half Strength (480 ml) TOP SCH ×3 (04:41→16:47)
[2017-09-09 05:31] LABS: ABG ALLEN TEST YES; ARTERIAL BLOOD GAS HEMOGLOBIN 10.2 g/dL (11.7-17.4); ARTERIAL BLOOD GAS O2 CAPACITY 14.1 mL/dL (16-24); ARTERIAL BLOOD GAS O2 SAT 99.5 % (95-98); ARTERIAL BLOOD GAS PCO2 65 mm/Hg (35-45); ARTERIAL BLOOD GAS PH 7.28 (7.35-7.45); ARTERIAL BLOOD GAS PO2 106 mm/Hg (80-100); ARTERIAL BLOOD GAS TCO2 32.5 mmol/L (22-28)
--- NOTE | 2017-09-09 06:24 | PCM.PROC ---
Procedures Attestation:: I certify that I have explained the specified Operation(s) or Procedure(s), risks, benefits and reasonable alternatives to the Patient and/or other person responsible. The opportunity was given to ask questions and all questions answered - Central Line Placement Right Femoral Triple Lumen Catheter Aseptic technique was employed throughout the procedure: Hand Hygiene done prior to procedure, Full sterile barriers (mask, hair cover, sterile gown, sterile gloves), Full body sterile drape, Chloraprep Antiseptic: 2 minute prep for Femoral CVP Time Out Performed: No Pt. Placed on Pulse Ox Monitor: Yes Central Line Prep: Chlorhexidine-Alcohol Combination Local Anesthesia Used: Lidocaine 1% Ultrasound Used for Placement: Yes Central Line Lumen Inserted: triple Central Line Length: 20 cm Post Procedure: Sutured in Place, Good Blood Return, All Ports Aspirated, Flushed, Capped, Sterile Dressing Applied Secured by: Suture Post procedure dressing: Clear vapor permeable Post Procedure X-Ray: No Patient Tolerated Procedure: Well, No Complications Immediate Complications: None
[2017-09-09 06:43] LABS: HEMOGLOBIN 10.5 g/dL (12.0-16.0); MEAN CELL VOLUME 99.2 fl (81.0-99.0); MEAN CORPUSCULAR HEMOGLOBIN 31.7 pg (27.0-31.0); RBC 3.31 Mil/uL (3.80-5.20); RED CELL DISTRIBUTION WIDTH 15.8 % (11.5-14.5); WHITE BLOOD COUNT 7.4 K/uL (4.8-10.8)
[2017-09-09 06:58] LABS: ALB/GLOB RATIO 0.9 (1.0-2.1); ALBUMIN 2.9 g/dL (3.5-5.0); CALCIUM 8.5 mg/dL (8.4-10.2)
[2017-09-09] MEDS ORDERED: Sodium Chloride 0.9% 1,000 ML IV SCH (07:30)
--- NOTE | 2017-09-09 08:24 | CP.CCUPN ---
CCU Subjective - Physician Review Events Since Last Encounter (Free Text): 09/09/17 08:21 Patient lethargic, on BIPAP, no fever, no pressors, events reviewed CCU Objective - Vital Signs / Intake & Output Vital Signs (Last 4 hours): Vital Signs Temp Pulse Resp BP Pulse Ox 09/09/17 08:00 97.6 F 85 86/49 L 97 09/09/17 07:51 84 09/09/17 06:18 100 H 09/09/17 06:00 84 15 90/53 L 97 09/09/17 05:00 91 H 17 78/54 L 99 09/09/17 04:30 95 H 22 79/49 L 98 Intake and Output (Last 8hrs): Intake & Output 09/08/17 09/09/17 09/09/17 22:59 06:59 14:59 Intake Total 1000 Output Total 100 Balance -100 1000 Intake: IV 1000 Output: Urine 100 Urine, Voided 100 Other: # Voids Urine, Voided 1 - Physical Exam Head: Positive for: Atraumatic, Normocephalic Pupils: Positive for: PERRL Conjunctiva: Positive for: Normal Mouth: Positive for: Moist Mucous Membranes Nose (External): Positive for: Atraumatic Neck: Positive for: Normal Range of Motion Respiratory/Chest: Positive for: Clear to Auscultation Cardiovascular: Positive for: Irregular Rhythm Abdomen: Positive for: Normal Bowel Sounds Upper Extremity: Positive for: Normal Inspection Lower Extremity: Positive for: Edema Neurological: Positive for: Other (lethargic) - Medications Active Medications: Active Medications Generic Name Dose Route Start Last Admin Trade Name Freq PRN Reason Stop Dose Admin Acetaminophen 650 mg 09/09/17 04:03 Tylenol 325mg Tab PO Q6H PRN Pain, Mild (1-3) Allopurinol 100 mg 09/09/17 09:00 Zyloprim PO DAILY [facility] Digoxin 0.125 mg 09/09/17 09:00 Digoxin PO DAILY [facility] Docusate Sodium 100 mg 09/09/17 09:00 Colace PO BID [facility] Ergocalciferol 1 cap 09/09/17 04:03 09/09/17 04:23 Drisdol 50,000 Intl Units Cap PO Not Given FR [facility] Ferrous Sulfate 325 mg 09/09/17 09:00 Feosol PO DAILY [facility] Furosemide 40 mg 09/09/17 09:00 Lasix IV DAILY [facility] Ceftriaxone Sodium 1 gm/ 100 mls @ 100 mls/hr 09/09/17 09:00 Sodium Chloride IVPB DAILY [facility] Protocol Sodium Chloride 1,000 mls @ 75 mls/hr 09/09/17 07:30 09/09/17 07:40 Sodium Chloride 0.9% IV 09/10/17 07:26 75 mls/hr .[id number] [facility] Administration Metoprolol Succinate 25 mg 09/09/17 09:00 Toprol Xl PO DAILY [facility] Ondansetron HCl 4 mg 09/09/17 04:03 Zofran Odt PO Q8H PRN Nausea/Vomiting Rivaroxaban 15 mg 09/09/17 22:00 Xarelto PO HS [facility] Protocol Sodium Hypochlorite 20 ml 09/09/17 09:00 09/09/17 04:41 Dakins Solution 0.25% TOP 20 ml BID [facility] Administration - Patient Studies Lab Studies: Microbiology Studies 09/04/17 18:55 Blood Culture - Preliminary Blood-Venous NO GROWTH AFTER 4 DAYS 09/04/17 18:22 Blood Culture - Preliminary Blood-Venous NO GROWTH AFTER 4 DAYS Lab Studies 09/09/17 09/09/17 09/09/17 Range/Units 06:35 06:35 05:00 WBC 7.4 (4.8-10.8) K/uL RBC 3.31 L (3.80-5.20) Mil/uL Hgb 10.5 L (12.0-16.0) g/dL Hct 32.9 L (34.0-47.0) % MCV 99.2 H (81.0-99.0) fl MCH 31.7 H (27.0-31.0) pg MCHC 32.0 L (33.0-37.0) g/dL RDW 15.8 H (11.5-14.5) % Plt Count 165 (130-400) K/uL pCO2 65 H (35-45) mm/Hg pO2 106 H (80-100) mm/Hg HCO3 27.0 (21-28) mmol/L ABG pH 7.28 L (7.35-7.45) ABG Total CO2 32.5 H (22-28) mmol/L ABG O2 Saturation 99.5 H (95-98) % ABG O2 Content 14.0 L (15-23) ML/dL ABG Base Excess 2.6 (-2.0-3.0) mmol/L ABG Hemoglobin 10.2 L (11.7-17.4) g/dL ABG Carboxyhemoglobin 2.3 H (0.5-1.5) % POC ABG HHb (Measured) 0.5 (0.0-5.0) % ABG Methemoglobin 0.8 (0.0-3.0) % ABG O2 Capacity 14.1 L (16-24) mL/dL Rigo Test Yes A-a O2 Difference 241.0 mm/Hg Hgb O2 Saturation 96.4 (95.0-98.0) % Vent Mode Bipap Mechanical Rate 16 FiO2 60.0 % Inspiratory BiPAP 18 Expiratory BiPAP 7 Crit Value Called To Crit Value Called By Crit Value Read Back Blood Gas Notified Time Sodium 132 (132-148) mmol/l Potassium 5.5 H (3.6-5.0) MMOL/L Chloride 92 L (98-107) mmol/L Carbon Dioxide 29 (22-30) mmol/L Anion Gap 17 (10-20) BUN 44 H (7-17) mg/dl Creatinine 2.2 H (0.7-1.2) mg/dl Est GFR ( Amer) 26 Est GFR (Non-Af Amer) 22 Random Glucose 120 H (65-105) mg/dL Calcium 8.5 (8.4-10.2) mg/dL Total Bilirubin 0.7 (0.2-1.3) mg/dl AST 47 H (14-36) U/L ALT 42 (9-52) U/L Alkaline Phosphatase 103 (38-126) U/L Total Protein 6.0 L (6.3-8.2) G/DL Albumin 2.9 L (3.5-5.0) g/dL Globulin 3.1 (2.2-3.9) gm/dL Albumin/Globulin Ratio 0.9 L (1.0-2.1) 09/09/17 Range/Units 02:30 WBC (4.8-10.8) K/uL RBC (3.80-5.20) Mil/uL Hgb (12.0-16.0) g/dL Hct (34.0-47.0) % MCV (81.0-99.0) fl MCH (27.0-31.0) pg MCHC (33.0-37.0) g/dL RDW (11.5-14.5) % Plt Count (130-400) K/uL pCO2 72 H* (35-45) mm/Hg pO2 155 H (80-100) mm/Hg HCO3 24.5 (21-28) mmol/L ABG pH 7.21 L (7.35-7.45) ABG Total CO2 31.0 H (22-28) mmol/L ABG O2 Saturation 100.2 H (95-98) % ABG O2 Content 16.0 (15-23) ML/dL ABG Base Excess -0.5 (-2.0-3.0) mmol/L ABG Hemoglobin 11.5 L (11.7-17.4) g/dL ABG Carboxyhemoglobin 2.5 H (0.5-1.5) % POC ABG HHb (Measured) -0.2 L (0.0-5.0) % ABG Methemoglobin 0.8 (0.0-3.0) % ABG O2 Capacity 16.0 (16-24) mL/dL Rigo Test Yes A-a O2 Difference 468.0 mm/Hg Hgb O2 Saturation 96.9 (95.0-98.0) % Vent Mode Mechanical Rate FiO2 100.0 % Inspiratory BiPAP Expiratory BiPAP Crit Value Called To Dr ronel johnson Crit Value Called By Himanshu Crit Value Read Back Y Blood Gas Notified Time 248 Sodium (132-148) mmol/l Potassium (3.6-5.0) MMOL/L Chloride (98-107) mmol/L Carbon Dioxide (22-30) mmol/L Anion Gap (10-20) BUN (7-17) mg/dl Creatinine (0.7-1.2) mg/dl Est GFR ( Amer) Est GFR (Non-Af Amer) Random Glucose (65-105) mg/dL Calcium (8.4-10.2) mg/dL Total Bilirubin (0.2-1.3) mg/dl AST (14-36) U/L ALT (9-52) U/L Alkaline Phosphatase (38-126) U/L Total Protein (6.3-8.2) G/DL Albumin (3.5-5.0) g/dL Globulin (2.2-3.9) gm/dL Albumin/Globulin Ratio (1.0-2.1) Laboratory Results - last 24 hr 09/09/17 09/09/17 09/09/17 02:30 05:00 06:35 WBC RBC Hgb Hct MCV MCH MCHC RDW Plt Count pCO2 72 H* 65 H pO2 155 H 106 H HCO3 24.5 27.0 ABG pH 7.21 L 7.28 L ABG Total CO2 31.0 H 32.5 H ABG O2 Saturation 100.2 H 99.5 H ABG O2 Content 16.0 14.0 L ABG Base Excess -0.5 2.6 ABG Hemoglobin 11.5 L 10.2 L ABG Carboxyhemoglobin 2.5 H 2.3 H POC ABG HHb (Measured) -0.2 L 0.5 ABG Methemoglobin 0.8 0.8 ABG O2 Capacity 16.0 14.1 L Rigo Test Yes Yes A-a O2 Difference 468.0 241.0 Hgb O2 Saturation 96.9 96.4 Vent Mode Bipap Mechanical Rate 16 FiO2 100.0 60.0 Inspiratory BiPAP 18 Expiratory BiPAP 7 Crit Value Called To Dr ronel johnson Crit Value Called By Himanshu Crit Value Read Back Y Blood Gas Notified Time 248 Sodium 132 Potassium 5.5 H Chloride 92 L Carbon Dioxide 29 Anion Gap 17 BUN 44 H Creatinine 2.2 H Est GFR ( Amer) 26 Est GFR (Non-Af Amer) 22 Random Glucose 120 H Calcium 8.5 Total Bilirubin 0.7 AST 47 H ALT 42 Alkaline Phosphatase 103 Total Protein 6.0 L Albumin 2.9 L Globulin 3.1 Albumin/Globulin Ratio 0.9 L 09/09/17 06:35 WBC 7.4 RBC 3.31 L Hgb 10.5 L Hct 32.9 L MCV 99.2 H MCH 31.7 H MCHC 32.0 L RDW 15.8 H Plt Count 165 pCO2 pO2 HCO3 ABG pH ABG Total CO2 ABG O2 Saturation ABG O2 Content ABG Base Excess ABG Hemoglobin ABG Carboxyhemoglobin POC ABG HHb (Measured) ABG Methemoglobin ABG O2 Capacity Rigo Test A-a O2 Difference Hgb O2 Saturation Vent Mode Mechanical Rate FiO2 Inspiratory BiPAP Expiratory BiPAP Crit Value Called To Crit Value Called By Crit Value Read Back Blood Gas Notified Time Sodium Potassium Chloride Carbon Dioxide Anion Gap BUN Creatinine Est GFR ( Amer) Est GFR (Non-Af Amer) Random Glucose Calcium Total Bilirubin AST ALT Alkaline Phosphatase Total Protein Albumin Globulin Albumin/Globulin Ratio Critical Care Progress Note - Nutrition Nutrition: Nutrition Category Date Time Status Heart Healthy Diet [DIET] Diets 09/04/17 Dinner Active Assessment/Plan - Assessment and Plan (Free Text) Assessment: A/P Respiratory insufficiency, CHF, pleural effusion, A Fib, left breast necrotic mass/wound, refused thoracentesis, refused breast biopsy - BIPAP - Pulmonary toilets - Continue meds - DNI - Poor prognosis
[2017-09-09] MEDS: Metoprolol Succinate 25 mg XL Tab PO SCH (08:34)
[2017-09-09] MEDS ORDERED: Dakin's Topical 0.25%-Half Strength (480 ml) TOP SCH (09:00)
[2017-09-09] MEDS ORDERED: Digoxin 125 mcg (0.125 mg) Tab PO SCH (09:00)
[2017-09-09 11:04] VITALS: PULSE 90
[2017-09-09 19:20] LABS: ABG ALLEN TEST YES; ARTERIAL BLOOD GAS HCO3 28.8 mmol/L (21-28); ARTERIAL BLOOD GAS HEMOGLOBIN 10.7 g/dL (11.7-17.4); ARTERIAL BLOOD GAS O2 CAPACITY 14.9 mL/dL (16-24); ARTERIAL BLOOD GAS O2 CONTENT 14.9 ML/dL (15-23); ARTERIAL BLOOD GAS O2 SAT 99.8 % (95-98); ARTERIAL BLOOD GAS PCO2 51 mm/Hg (35-45); ARTERIAL BLOOD GAS PH 7.39 (7.35-7.45); ARTERIAL BLOOD GAS PO2 145 mm/Hg (80-100); ARTERIAL BLOOD GAS TCO2 32.5 mmol/L (22-28)
[2017-09-09 19:34] LABS: CALCIUM 8.6 mg/dL (8.4-10.2)
[2017-09-09] MEDS: Sodium Chloride 0.9% 1,000 ML IV SCH (21:38)
[2017-09-10 05:29] LABS: HEMOGLOBIN 10.5 g/dL (12.0-16.0); MEAN CELL VOLUME 97.7 fl (81.0-99.0); MEAN CORPUSCULAR HEMOGLOBIN 31.1 pg (27.0-31.0); MEAN CORPUSCULAR HGB CONC 31.8 g/dL (33.0-37.0); RBC 3.39 Mil/uL (3.80-5.20); RED CELL DISTRIBUTION WIDTH 15.8 % (11.5-14.5)
[2017-09-10 05:41] LABS: ALB/GLOB RATIO 0.9 (1.0-2.1); CALCIUM 8.9 mg/dL (8.4-10.2)
[2017-09-10] MEDS: Sodium Chloride 0.9% 1,000 ML IV SCH (07:26)
--- NOTE | 2017-09-10 07:35 | CP.CCUPN ---
CCU Subjective - Physician Review Events Since Last Encounter (Free Text): Patient more awake, on O2 nasal canula, follow commands, no fever, events reviewed CCU Objective - Vital Signs / Intake & Output Vital Signs (Last 4 hours): Vital Signs Temp Pulse Resp BP Pulse Ox 09/10/17 06:00 100 H 21 95/59 L 98 09/10/17 05:10 22 09/10/17 04:00 97.7 F 103 H 24 126/47 L 96 Intake and Output (Last 8hrs): Intake & Output 09/09/17 09/10/17 09/10/17 22:59 06:59 14:59 Intake Total 1420 860 Balance 1420 860 Intake: IV 1300 800 Oral 120 60 Other: # Voids Urine, Voided 2 1 # Bowel Movements 0 - Physical Exam Head: Positive for: Atraumatic, Normocephalic Pupils: Positive for: PERRL Conjunctiva: Positive for: Normal Mouth: Positive for: Moist Mucous Membranes Nose (External): Positive for: Atraumatic Neck: Positive for: Normal Range of Motion Respiratory/Chest: Positive for: Clear to Auscultation Cardiovascular: Positive for: Irregular Rhythm Abdomen: Positive for: Normal Bowel Sounds Upper Extremity: Positive for: Normal Inspection Lower Extremity: Positive for: Edema Neurological: Positive for: Other (lethargic) - Medications Active Medications: Active Medications Generic Name Dose Route Start Last Admin Trade Name Freq PRN Reason Stop Dose Admin Acetaminophen 650 mg 09/09/17 04:03 09/10/17 03:09 Tylenol 325mg Tab PO 650 mg Q6H PRN Administration Pain, Mild (1-3) Allopurinol 100 mg 09/09/17 09:00 09/09/17 08:35 Zyloprim PO Not Given DAILY [facility] Docusate Sodium 100 mg 09/09/17 09:00 09/09/17 16:15 Colace PO Not Given BID [facility] Ergocalciferol 1 cap 09/09/17 04:03 09/09/17 04:23 Drisdol 50,000 Intl Units Cap PO Not Given FR [facility] Ferrous Sulfate 325 mg 09/09/17 09:00 09/09/17 11:03 Feosol PO 325 mg DAILY [facility] Administration Ceftriaxone Sodium 1 gm/ 100 mls @ 100 mls/hr 09/09/17 09:00 09/09/17 09:30 Sodium Chloride IVPB 100 mls/hr DAILY [facility] Administration Protocol Sodium Chloride 1,000 mls @ 100 mls/hr 09/09/17 18:45 09/10/17 07:26 Sodium Chloride 0.9% IV 09/10/17 18:41 100 mls/hr .Q10H [facility] Administration Metoprolol Succinate 25 mg 09/09/17 09:00 09/09/17 08:34 Toprol Xl PO Not Given DAILY [facility] Ondansetron HCl 4 mg 09/09/17 04:03 Zofran Odt PO Q8H PRN Nausea/Vomiting Rivaroxaban 15 mg 09/09/17 22:00 09/09/17 21:14 Xarelto PO 15 mg HS [facility] Administration Protocol Sodium Hypochlorite 20 ml 09/09/17 09:00 09/09/17 16:47 Dakins Solution 0.25% TOP 20 ml BID [facility] Administration - Patient Studies Lab Studies: Microbiology Studies 09/08/17 18:00 MRSA Culture (Admit) - Final Naris MRSA NOT DETECTED 09/04/17 18:55 Blood Culture - Final Blood-Venous NO GROWTH AFTER 5 DAYS 09/04/17 18:22 Blood Culture - Final Blood-Venous NO GROWTH AFTER 5 DAYS Gram Stain - Final TEST NOT PERFORMED Lab Studies 09/10/17 09/10/17 09/10/17 Range/Units 04:25 04:25 04:25 WBC 8.0 (4.8-10.8) K/uL RBC 3.39 L (3.80-5.20) Mil/uL Hgb 10.5 L (12.0-16.0) g/dL Hct 33.1 L (34.0-47.0) % MCV 97.7 (81.0-99.0) fl MCH 31.1 H (27.0-31.0) pg MCHC 31.8 L (33.0-37.0) g/dL RDW 15.8 H (11.5-14.5) % Plt Count 180 (130-400) K/uL pCO2 (35-45) mm/Hg pO2 (80-100) mm/Hg HCO3 (21-28) mmol/L ABG pH (7.35-7.45) ABG Total CO2 (22-28) mmol/L ABG O2 Saturation (95-98) % ABG O2 Content (15-23) ML/dL ABG Base Excess (-2.0-3.0) mmol/L ABG Hemoglobin (11.7-17.4) g/dL ABG Carboxyhemoglobin (0.5-1.5) % POC ABG HHb (Measured) (0.0-5.0) % ABG Methemoglobin (0.0-3.0) % ABG O2 Capacity (16-24) mL/dL Rigo Test A-a O2 Difference mm/Hg Hgb O2 Saturation (95.0-98.0) % Vent Mode Mechanical Rate FiO2 % Inspiratory BiPAP Expiratory BiPAP Sodium 133 (132-148) mmol/l Potassium 5.4 H (3.6-5.0) MMOL/L Chloride 92 L (98-107) mmol/L Carbon Dioxide 30 (22-30) mmol/L Anion Gap 16 (10-20) BUN 49 H (7-17) mg/dl Creatinine 2.1 H (0.7-1.2) mg/dl Est GFR ( Amer) 28 Est GFR (Non-Af Amer) 23 Random Glucose 90 (65-105) mg/dL Calcium 8.9 (8.4-10.2) mg/dL Total Bilirubin 0.4 (0.2-1.3) mg/dl AST 93 H D (14-36) U/L ALT 60 H D (9-52) U/L Alkaline Phosphatase 116 (38-126) U/L NT-Pro-B Natriuret Pep 57746 H (0-900) pg/ml Total Protein 6.3 (6.3-8.2) G/DL Albumin 3.0 L (3.5-5.0) g/dL Globulin 3.2 (2.2-3.9) gm/dL Albumin/Globulin Ratio 0.9 L (1.0-2.1) Digoxin 2.7 H* (0.8-2.0) ng/mL 09/09/17 09/09/17 Range/Units 19:20 19:05 WBC (4.8-10.8) K/uL RBC (3.80-5.20) Mil/uL Hgb (12.0-16.0) g/dL Hct (34.0-47.0) % MCV (81.0-99.0) fl MCH (27.0-31.0) pg MCHC (33.0-37.0) g/dL RDW (11.5-14.5) % Plt Count (130-400) K/uL pCO2 51 H (35-45) mm/Hg pO2 145 H (80-100) mm/Hg HCO3 28.8 H (21-28) mmol/L ABG pH 7.39 (7.35-7.45) ABG Total CO2 32.5 H (22-28) mmol/L ABG O2 Saturation 99.8 H (95-98) % ABG O2 Content 14.9 L (15-23) ML/dL ABG Base Excess 5.0 H (-2.0-3.0) mmol/L ABG Hemoglobin 10.7 L (11.7-17.4) g/dL ABG Carboxyhemoglobin 1.6 H (0.5-1.5) % POC ABG HHb (Measured) 0.2 (0.0-5.0) % ABG Methemoglobin 1.4 (0.0-3.0) % ABG O2 Capacity 14.9 L (16-24) mL/dL Rigo Test Yes A-a O2 Difference 219.0 mm/Hg Hgb O2 Saturation 96.8 (95.0-98.0) % Vent Mode Bipap Mechanical Rate 16 FiO2 60.0 % Inspiratory BiPAP 18 Expiratory BiPAP 7 Sodium 131 L (132-148) mmol/l Potassium 5.5 H (3.6-5.0) MMOL/L Chloride 91 L (98-107) mmol/L Carbon Dioxide 29 (22-30) mmol/L Anion Gap 17 (10-20) BUN 46 H (7-17) mg/dl Creatinine 2.3 H (0.7-1.2) mg/dl Est GFR ( Amer) 25 Est GFR (Non-Af Amer) 21 Random Glucose 101 (65-105) mg/dL Calcium 8.6 (8.4-10.2) mg/dL Total Bilirubin (0.2-1.3) mg/dl AST (14-36) U/L ALT (9-52) U/L Alkaline Phosphatase (38-126) U/L NT-Pro-B Natriuret Pep (0-900) pg/ml Total Protein (6.3-8.2) G/DL Albumin (3.5-5.0) g/dL Globulin (2.2-3.9) gm/dL Albumin/Globulin Ratio (1.0-2.1) Digoxin (0.8-2.0) ng/mL Laboratory Results - last 24 hr 09/09/17 09/09/17 09/10/17 19:05 19:20 04:25 WBC RBC Hgb Hct MCV MCH MCHC RDW Plt Count pCO2 51 H pO2 145 H HCO3 28.8 H ABG pH 7.39 ABG Total CO2 32.5 H ABG O2 Saturation 99.8 H ABG O2 Content 14.9 L ABG Base Excess 5.0 H ABG Hemoglobin 10.7 L ABG Carboxyhemoglobin 1.6 H POC ABG HHb (Measured) 0.2 ABG Methemoglobin 1.4 ABG O2 Capacity 14.9 L Rigo Test Yes A-a O2 Difference 219.0 Hgb O2 Saturation 96.8 Vent Mode Bipap Mechanical Rate 16 FiO2 60.0 Inspiratory BiPAP 18 Expiratory BiPAP 7 Sodium 131 L 133 Potassium 5.5 H 5.4 H Chloride 91 L 92 L Carbon Dioxide 29 30 Anion Gap 17 16 BUN 46 H 49 H Creatinine 2.3 H 2.1 H Est GFR ( Amer) 25 28 Est GFR (Non-Af Amer) 21 23 Random Glucose 101 90 Calcium 8.6 8.9 Total Bilirubin 0.4 AST 93 H D ALT 60 H D Alkaline Phosphatase 116 NT-Pro-B Natriuret Pep 76552 H Total Protein 6.3 Albumin 3.0 L Globulin 3.2 Albumin/Globulin Ratio 0.9 L Digoxin 09/10/17 09/10/17 04:25 04:25 WBC 8.0 RBC 3.39 L Hgb 10.5 L Hct 33.1 L MCV 97.7 MCH 31.1 H MCHC 31.8 L RDW 15.8 H Plt Count 180 pCO2 pO2 HCO3 ABG pH ABG Total CO2 ABG O2 Saturation ABG O2 Content ABG Base Excess ABG Hemoglobin ABG Carboxyhemoglobin POC ABG HHb (Measured) ABG Methemoglobin ABG O2 Capacity Rigo Test A-a O2 Difference Hgb O2 Saturation Vent Mode Mechanical Rate FiO2 Inspiratory BiPAP Expiratory BiPAP Sodium Potassium Chloride Carbon Dioxide Anion Gap BUN Creatinine Est GFR ( Amer) Est GFR (Non-Af Amer) Random Glucose Calcium Total Bilirubin AST ALT Alkaline Phosphatase NT-Pro-B Natriuret Pep Total Protein Albumin Globulin Albumin/Globulin Ratio Digoxin 2.7 H* Critical Care Progress Note - Nutrition Nutrition: Nutrition Category Date Time Status Heart Healthy Diet [DIET] Diets 09/04/17 Dinner Active Assessment/Plan - Assessment and Plan (Free Text) Assessment: A/P Respiratory insufficiency, CHF, pleural effusion, A Fib, left breast necrotic mass/wound, refused thoracentesis and breast biopsy in the past - O2 supplement - Pulmonary toilets - Continue meds - Thoracentesis and breast biopsy if patient agree - DNI - Poor prognosis
--- NOTE | 2017-09-10 08:44 | RAD ---
HISTORY: follow up Pleural effusion COMPARISON: 09/06/2017. FINDINGS: LUNGS: There are low lung volumes. There is bilateral lower lobe atelectasis. PLEURA: Again seen are moderate pleural effusions, larger on the right. No pneumothorax apparent. CARDIOVASCULAR: Stable. OSSEOUS STRUCTURES: Within normal limits for the patient's age. Well-circumscribed round lucent lesion in the left proximal humeral heads suspicious for metastasis. VISUALIZED UPPER ABDOMEN: Normal. OTHER FINDINGS: None. IMPRESSION: 1. No change in moderate pleural effusions, larger on the right. 2. Metastatic lesion in the left proximal humeral head.
[2017-09-10] MEDS: Dakin's Topical 0.25%-Half Strength (480 ml) TOP SCH ×2 (09:41→16:31)
[2017-09-10] MEDS ORDERED: Sodium Chloride 0.9% 1,000 ML IV SCH (14:15)
--- NOTE | 2017-09-10 14:55 | CP.PCM.PN ---
Subjective - Date & Time of Evaluation Date of Evaluation: 09/09/17 Time of Evaluation: 18:00 - Subjective Subjective: Patient is on non rebreather. Noted to have metastatic lytic lesions. Noted to have right sided heart failure. Objective - Vital Signs/Intake and Output Vital Signs (last 24 hours): Temp Pulse Resp BP Pulse Ox 97.5 F L 105 H 27 H 115/86 98 09/10/17 12:00 09/10/17 14:00 09/10/17 14:00 09/10/17 14:00 09/10/17 12:00 Intake and Output: 09/10/17 09/10/17 06:59 18:59 Intake Total 1380 477 Output Total 1180 Balance 1380 -703 - Medications Medications: Current Medications Acetaminophen (Tylenol 325mg Tab) 650 mg PO Q6H PRN PRN Reason: Pain, Mild (1-3) Last Admin: 09/10/17 03:09 Dose: 650 mg Allopurinol (Zyloprim) 100 mg PO DAILY [facility] Last Admin: 09/10/17 09:41 Dose: 100 mg Docusate Sodium (Colace) 100 mg PO BID [facility] Last Admin: 09/10/17 09:41 Dose: 100 mg Ergocalciferol (Drisdol 50,000 Intl Units Cap) 1 cap PO FR [facility] Last Admin: 09/09/17 04:23 Dose: Not Given Ferrous Sulfate (Feosol) 325 mg PO DAILY [facility] Last Admin: 09/10/17 09:40 Dose: 325 mg Ceftriaxone Sodium 1 gm/ (Sodium Chloride) 100 mls @ 100 mls/hr IVPB DAILY [facility] PRN Reason: Protocol Last Admin: 09/10/17 08:37 Dose: 100 mls/hr Sodium Chloride (Sodium Chloride 0.9%) 1,000 mls @ 40 mls/hr IV .Q24H [facility] Stop: 09/11/17 14:13 Metoprolol Succinate (Toprol Xl) 25 mg PO DAILY [facility] Last Admin: 09/09/17 08:34 Dose: Not Given Ondansetron HCl (Zofran Odt) 4 mg PO Q8H PRN PRN Reason: Nausea/Vomiting Rivaroxaban (Xarelto) 15 mg PO HS [facility] PRN Reason: Protocol Last Admin: 09/09/17 21:14 Dose: 15 mg Sodium Hypochlorite (Dakins Solution 0.25%) 20 ml TOP BID [facility] Last Admin: 09/10/17 09:41 Dose: Not Given - Labs Labs: 09/10/17 04:25 09/10/17 04:25 PT 17.4 Seconds (9.8-13.1) H 09/06/17 04:20 INR 1.6 (0.9-1.2) H 09/06/17 04:20 APTT 33.8 Seconds (25.6-37.1) 09/06/17 04:20 - Head Exam Head Exam: NORMAL INSPECTION - ENT Exam ENT Exam: Mucous Membranes Moist - Respiratory Exam Respiratory Exam: Decreased Breath Sounds, Respiratory Distress - Cardiovascular Exam Cardiovascular Exam: Tachycardia - GI/Abdominal Exam GI & Abdominal Exam: Normal Bowel Sounds - Neurological Exam Neurological Exam: Altered Assessment and Plan (1) Right-sided congestive heart failure Status: Acute (2) Atrial fibrillation Status: Acute (3) HTN (hypertension) Status: Acute (4) Metastatic breast cancer Status: Acute (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
--- NOTE | 2017-09-10 14:56 | CP.PCM.PN ---
Subjective - Date & Time of Evaluation Date of Evaluation: 09/10/17 Time of Evaluation: 14:56 - Subjective Subjective: Patient is stable Has no chest pain Still with SOB noted mod pleural effusion Discussed DNR and understood the whole process and does not want to be resuscitated She was made aware of her condition and does not want to have any treatment such as chemotx or radiation. Objective - Vital Signs/Intake and Output Vital Signs (last 24 hours): Temp Pulse Resp BP Pulse Ox 97.5 F L 105 H 27 H 115/86 98 09/10/17 12:00 09/10/17 14:00 09/10/17 14:00 09/10/17 14:00 09/10/17 12:00 Intake and Output: 09/10/17 09/10/17 06:59 18:59 Intake Total 1380 477 Output Total 1180 Balance 1380 -703 - Medications Medications: Current Medications Acetaminophen (Tylenol 325mg Tab) 650 mg PO Q6H PRN PRN Reason: Pain, Mild (1-3) Last Admin: 09/10/17 03:09 Dose: 650 mg Allopurinol (Zyloprim) 100 mg PO DAILY [facility] Last Admin: 09/10/17 09:41 Dose: 100 mg Docusate Sodium (Colace) 100 mg PO BID [facility] Last Admin: 09/10/17 09:41 Dose: 100 mg Ergocalciferol (Drisdol 50,000 Intl Units Cap) 1 cap PO FR [facility] Last Admin: 09/09/17 04:23 Dose: Not Given Ferrous Sulfate (Feosol) 325 mg PO DAILY [facility] Last Admin: 09/10/17 09:40 Dose: 325 mg Ceftriaxone Sodium 1 gm/ (Sodium Chloride) 100 mls @ 100 mls/hr IVPB DAILY [facility] PRN Reason: Protocol Last Admin: 09/10/17 08:37 Dose: 100 mls/hr Sodium Chloride (Sodium Chloride 0.9%) 1,000 mls @ 40 mls/hr IV .Q24H [facility] Stop: 09/11/17 14:13 Metoprolol Succinate (Toprol Xl) 25 mg PO DAILY [facility] Last Admin: 09/09/17 08:34 Dose: Not Given Ondansetron HCl (Zofran Odt) 4 mg PO Q8H PRN PRN Reason: Nausea/Vomiting Rivaroxaban (Xarelto) 15 mg PO HS [facility] PRN Reason: Protocol Last Admin: 09/09/17 21:14 Dose: 15 mg Sodium Hypochlorite (Dakins Solution 0.25%) 20 ml TOP BID [facility] Last Admin: 09/10/17 09:41 Dose: Not Given - Labs Labs: 09/10/17 04:25 09/10/17 04:25 PT 17.4 Seconds (9.8-13.1) H 09/06/17 04:20 INR 1.6 (0.9-1.2) H 09/06/17 04:20 APTT 33.8 Seconds (25.6-37.1) 09/06/17 04:20 - Head Exam Head Exam: NORMAL INSPECTION - ENT Exam ENT Exam: Mucous Membranes Moist - Respiratory Exam Respiratory Exam: Decreased Breath Sounds, Respiratory Distress - Cardiovascular Exam Cardiovascular Exam: REGULAR RHYTHM - GI/Abdominal Exam GI & Abdominal Exam: Normal Bowel Sounds - Neurological Exam Neurological Exam: Alert, Awake, Oriented x3 Assessment and Plan (1) Right-sided congestive heart failure Status: Acute (2) Atrial fibrillation Status: Acute (3) HTN (hypertension) Status: Acute (4) Metastatic breast cancer Status: Acute (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
[2017-09-10] MEDS: Metoprolol Succinate 25 mg XL Tab PO SCH (16:32)
--- NOTE | 2017-09-10 21:36 | CP.PCM.CON ---
History of Present Illness - History of Present Illness History of Present Illness: Surgery 77 F w PMH of CHF, Afib on Xeralto, and L breast mass came with SOB and pedal edema. CT of chest showed moderate pleural effusion b/l more on R side, L breast lesion likely 2/2 malignancy and R lung noduel and R axillary lymphadenopathy. Thoracenthesis was recommended but pt refused it before. However today, pt is agreeable for thoracentesis today to relieve SOB. Breast biopsy was recommended for the L breast lesion but she refused to get it evaluated. Her sister recently from breast CA. Pt consented for thoracentesis. PMH : See above FHX : breast CA Review of Systems - Constitutional Constitutional: Fatigue, Lethargy, Malaise, Weakness - Cardiovascular Cardiovascular: Dyspnea, Dyspnea on Exertion, Edema - Respiratory Respiratory: Dyspnea. absent: Hemoptysis Past Patient History - Infectious Disease Hx of Infectious Diseases: None - Past Medical History & Family History Past Medical History?: Yes - Past Social History Smoking Status: Never Smoked - CARDIAC Hx Cardiac Disorders: Yes Hx Atrial Fibrillation: Yes Hx Congestive Heart Failure: Yes Hx Hypertension: Yes - PULMONARY Hx Respiratory Disorders: No - NEUROLOGICAL Hx Neurological Disorder: No - HEENT Hx HEENT Problems: Yes Other/Comment: wears glasses - RENAL Hx Chronic Kidney Disease: No - ENDOCRINE/METABOLIC Hx Endocrine Disorders: No - HEMATOLOGICAL/ONCOLOGICAL Hx Blood Disorders: No - INTEGUMENTARY Hx Dermatological Problems: Yes Other/Comment: Left breast wound, present on admission. - MUSCULOSKELETAL/RHEUMATOLOGICAL Hx Musculoskeletal Disorders: Yes Hx Back Pain: Yes Hx Falls: No - GASTROINTESTINAL Hx Gastrointestinal Disorders: No - GENITOURINARY/GYNECOLOGICAL Hx Genitourinary Disorders: No - PSYCHIATRIC Hx Psychophysiologic Disorder: No Hx Substance Use: No - SURGICAL HISTORY Hx Surgeries: No - ANESTHESIA Hx Anesthesia: No Meds Allergies/Adverse Reactions: Allergies Allergy/AdvReac Type Severity Reaction Status Date / Time No Known Allergies Allergy Verified 09/04/17 17:41 - Medications Medications: Current Medications Acetaminophen (Tylenol 325mg Tab) 650 mg PO Q6H PRN PRN Reason: Pain, Mild (1-3) Last Admin: 09/10/17 16:31 Dose: 650 mg Allopurinol (Zyloprim) 100 mg PO DAILY [facility] Last Admin: 09/10/17 09:41 Dose: 100 mg Docusate Sodium (Colace) 100 mg PO BID [facility] Last Admin: 09/10/17 16:31 Dose: 100 mg Ergocalciferol (Drisdol 50,000 Intl Units Cap) 1 cap PO FR [facility] Last Admin: 09/09/17 04:23 Dose: Not Given Ferrous Sulfate (Feosol) 325 mg PO DAILY [facility] Last Admin: 09/10/17 09:40 Dose: 325 mg Ceftriaxone Sodium 1 gm/ (Sodium Chloride) 100 mls @ 100 mls/hr IVPB DAILY [facility] PRN Reason: Protocol Last Admin: 09/10/17 08:37 Dose: 100 mls/hr Sodium Chloride (Sodium Chloride 0.9%) 1,000 mls @ 40 mls/hr IV .Q24H [facility] Stop: 09/11/17 14:13 Last Admin: 09/10/17 16:35 Dose: 40 mls/hr Norepinephrine Bitartrate 4 mg (/ Dextrose) 254 mls @ 9.52 mls/hr IV .Q24H [facility] ; 2.5 MCG/MIN PRN Reason: Protocol Metoprolol Succinate (Toprol Xl) 25 mg PO DAILY [facility] Last Admin: 09/10/17 16:32 Dose: Not Given Ondansetron HCl (Zofran Odt) 4 mg PO Q8H PRN PRN Reason: Nausea/Vomiting Rivaroxaban (Xarelto) 15 mg PO HS [facility] PRN Reason: Protocol Last Admin: 09/09/17 21:14 Dose: 15 mg Sodium Hypochlorite (Dakins Solution 0.25%) 20 ml TOP BID [facility] Last Admin: 09/10/17 16:31 Dose: 20 ml Physical Exam - Constitutional Appears: In Acute Distress, Chronically Ill - Head Exam Head Exam: ATRAUMATIC, NORMAL INSPECTION, NORMOCEPHALIC - Eye Exam Eye Exam: EOMI, Normal appearance, PERRL Pupil Exam: NORMAL ACCOMODATION, PERRL - ENT Exam ENT Exam: Mucous Membranes Moist, Normal Exam - Neck Exam Neck exam: Positive for: Normal Inspection - Respiratory Exam Respiratory Exam: Clear to Auscultation Bilateral, Rales, Rhonchi, Respiratory Distress. absent: Chest Wall Tenderness - Cardiovascular Exam Cardiovascular Exam: Tachycardia, +S1, +S2 - GI/Abdominal Exam GI & Abdominal Exam: Soft. absent: Distended, Tenderness - Exam Exam: NORMAL INSPECTION - Extremities Exam Extremities exam: Positive for: pedal edema. Negative for: normal inspection - Back Exam Back exam: NORMAL INSPECTION - Neurological Exam Neurological exam: Alert, CN II-XII Intact, Oriented x3 - Psychiatric Exam Psychiatric exam: Normal Affect, Normal Mood - Skin Skin Exam: Dry, Intact, Normal Color, Warm Results - Vital Signs Recent Vital Signs: Last Vital Signs Temp 98.1 F 09/10/17 20:00 Pulse 97 H 09/10/17 20:00 Resp 19 09/10/17 20:00 BP 107/64 09/10/17 20:00 Pulse Ox 96 09/10/17 18:00 - Labs Result Diagrams: 09/10/17 04:25 09/10/17 04:25 Labs: Laboratory Results - last 24 hr 09/10/17 09/10/17 09/10/17 04:25 04:25 04:25 WBC 8.0 RBC 3.39 L Hgb 10.5 L Hct 33.1 L MCV 97.7 MCH 31.1 H MCHC 31.8 L RDW 15.8 H Plt Count 180 Sodium 133 Potassium 5.4 H Chloride 92 L Carbon Dioxide 30 Anion Gap 16 BUN 49 H Creatinine 2.1 H Est GFR ( Amer) 28 Est GFR (Non-Af Amer) 23 Random Glucose 90 Calcium 8.9 Total Bilirubin 0.4 AST 93 H D ALT 60 H D Alkaline Phosphatase 116 NT-Pro-B Natriuret Pep 43502 H Total Protein 6.3 Albumin 3.0 L Globulin 3.2 Albumin/Globulin Ratio 0.9 L Digoxin 2.7 H* Assessment & Plan - Assessment and Plan (Free Text) Assessment: b/l Pleural effusion POD 0 s/p R thoracentesis 450cc out CXR : no peumothorax -Monitor VS -CXR DON Mullins
--- NOTE | 2017-09-10 21:44 | PCM.PROC ---
Procedures Attestation:: I certify that I have explained the specified Operation(s) or Procedure(s), risks, benefits and reasonable alternatives to the Patient and/or other person responsible. The opportunity was given to ask questions and all questions answered - Chest Tube Chest Tube Location: Mid-Axillary Right Size of Tube (cm): 20 Chest Tube Procedure: Chlorhexidine Tube Sutured to Skin: No Sterile Dressing Applied: Yes Anesthesia: Lidocaine 1% Volume Anesthetic (mls): 10 Incision Made With: #11 blade Archibald of [employer] Simpson: No Tube Drainage: fluid Amount of Initial Drainage: 450 Post Procedure CXR?: Yes Patient Tolerated Procedure: Yes Progress: Performed R thoracentesis
[2017-09-11 06:23] LABS: HEMOGLOBIN 11.1 g/dL (12.0-16.0); MEAN CELL VOLUME 97.1 fl (81.0-99.0); MEAN CORPUSCULAR HEMOGLOBIN 31.5 pg (27.0-31.0); MEAN CORPUSCULAR HGB CONC 32.5 g/dL (33.0-37.0); RBC 3.52 Mil/uL (3.80-5.20); RED CELL DISTRIBUTION WIDTH 15.4 % (11.5-14.5); WHITE BLOOD COUNT 8.5 K/uL (4.8-10.8)
[2017-09-11 06:44] LABS: CALCIUM 9.1 mg/dL (8.4-10.2)
--- NOTE | 2017-09-11 08:24 | RAD ---
PROCEDURE: CHEST RADIOGRAPH, 1 VIEW HISTORY: s/p R thoracenthesis COMPARISON: Plain radiographs performed earlier the same day. FINDINGS: LUNGS: There is bibasilar atelectasis. PLEURA: Status post right thoracentesis, there is interval decrease in size of right pleural effusion with residual moderate pleural effusion. There is a persistent moderate left pleural effusion. No pneumothorax. CARDIOVASCULAR: Stable. OSSEOUS STRUCTURES: No interval change. VISUALIZED UPPER ABDOMEN: Normal. OTHER FINDINGS: None. IMPRESSION: Status post right thoracentesis, interval decrease in size of large right pleural effusion with residual moderate pleural effusion. Persistent moderate left pleural effusion.
[2017-09-11] MEDS: Dakin's Topical 0.25%-Half Strength (480 ml) TOP SCH ×2 (08:32→18:14)
[2017-09-11] MEDS: Metoprolol Succinate 25 mg XL Tab PO SCH (08:36)
[2017-09-11] MEDS: Oxycodone/Acetaminophen 5/325 mg Tab PO PRN ×2 (08:44→17:31)
--- NOTE | 2017-09-11 09:35 | CP.PCM.PN ---
Subjective - Date & Time of Evaluation Date of Evaluation: 09/11/17 Time of Evaluation: 09:32 - Subjective Subjective: Surgery Pt seen and examined. Thoracentesis yesterday. 450cc pleural fluids R side out. Sent for cytology and cx. Breathing better. SOB improved. Tolerating diet. Open to doing more thoracentesis or chest drainage if needed. Objective - Vital Signs/Intake and Output Vital Signs (last 24 hours): Temp Pulse Resp BP Pulse Ox 97.5 F L 105 H 20 109/57 L 98 09/11/17 08:00 09/11/17 08:36 09/11/17 08:00 09/11/17 08:36 09/11/17 08:00 Intake and Output: 09/11/17 09/11/17 06:59 18:59 Intake Total 246.5 1.5 Balance 246.5 1.5 - Medications Medications: Current Medications Acetaminophen (Tylenol 325mg Tab) 650 mg PO Q6H PRN PRN Reason: Pain, Mild (1-3) Last Admin: 09/10/17 16:31 Dose: 650 mg Allopurinol (Zyloprim) 100 mg PO DAILY [facility] Last Admin: 09/11/17 08:36 Dose: 100 mg Docusate Sodium (Colace) 100 mg PO BID [facility] Last Admin: 09/11/17 08:32 Dose: 100 mg Ergocalciferol (Drisdol 50,000 Intl Units Cap) 1 cap PO FR [facility] Last Admin: 09/09/17 04:23 Dose: Not Given Ferrous Sulfate (Feosol) 325 mg PO DAILY [facility] Last Admin: 09/11/17 08:33 Dose: 325 mg Ceftriaxone Sodium 1 gm/ (Sodium Chloride) 100 mls @ 100 mls/hr IVPB DAILY [facility] PRN Reason: Protocol Last Admin: 09/11/17 08:34 Dose: 100 mls/hr Sodium Chloride (Sodium Chloride 0.9%) 1,000 mls @ 40 mls/hr IV .Q24H [facility] Stop: 09/11/17 14:13 Last Admin: 09/10/17 16:35 Dose: 40 mls/hr Norepinephrine Bitartrate 4 mg (/ Dextrose) 254 mls @ 9.52 mls/hr IV .Q24H [facility] ; 2.5 MCG/MIN PRN Reason: Protocol Last Titration: 09/11/17 08:33 Dose: 0 mcg/min, 0 mls/hr Metoprolol Succinate (Toprol Xl) 25 mg PO DAILY [facility] Last Admin: 09/11/17 08:36 Dose: 25 mg Ondansetron HCl (Zofran Odt) 4 mg PO Q8H PRN PRN Reason: Nausea/Vomiting Oxycodone/Acetaminophen (Percocet 5/325 Mg Tab) 1 tab PO Q6 PRN PRN Reason: Pain, moderate (4-7) Stop: 09/14/17 08:40 Last Admin: 09/11/17 08:44 Dose: 1 tab Rivaroxaban (Xarelto) 15 mg PO HS [facility] PRN Reason: Protocol Last Admin: 09/10/17 21:55 Dose: 15 mg Sodium Hypochlorite (Dakins Solution 0.25%) 20 ml TOP BID [facility] Last Admin: 09/11/17 08:32 Dose: 20 ml - Labs Labs: 09/11/17 06:17 09/11/17 06:17 PT 17.4 Seconds (9.8-13.1) H 09/06/17 04:20 INR 1.6 (0.9-1.2) H 09/06/17 04:20 APTT 33.8 Seconds (25.6-37.1) 09/06/17 04:20 - Constitutional Appears: No Acute Distress - Head Exam Head Exam: ATRAUMATIC, NORMAL INSPECTION, NORMOCEPHALIC - Eye Exam Eye Exam: EOMI, Normal appearance, PERRL Pupil Exam: NORMAL ACCOMODATION, PERRL - ENT Exam ENT Exam: Mucous Membranes Moist, Normal Exam - Neck Exam Neck Exam: Full ROM, Normal Inspection. absent: Lymphadenopathy - Respiratory Exam Respiratory Exam: Clear to Ausculation Bilateral, Rales, Rhonchi, NORMAL BREATHING PATTERN - Cardiovascular Exam Cardiovascular Exam: Tachycardia, +S1, +S2. absent: Murmur - GI/Abdominal Exam GI & Abdominal Exam: Soft, Normal Bowel Sounds. absent: Tenderness - Extremities Exam Extremities Exam: Full ROM, Normal Capillary Refill, Normal Inspection. absent : Joint Swelling, Pedal Edema - Back Exam Back Exam: NORMAL INSPECTION - Neurological Exam Neurological Exam: Alert, Awake, CN II-XII Intact, Normal Gait, Oriented x3 - Psychiatric Exam Psychiatric exam: Normal Affect, Normal Mood - Skin Skin Exam: Dry, Intact, Normal Color, Warm Assessment and Plan - Assessment and Plan (Free Text) Assessment: POD 1 s/p R thoracenthesis 450cc : improved CXR : improved airation on R -Thoracentesis or chrest drain PRN -f/u cytology/cx of pleural fluids -REfusing breast exam or work up WIll DW Dr. Mullins
[2017-09-11] MEDS ORDERED: Diatriz Meglumine/Diatriz Sod 30 ML BOTTLE PO ONE (11:15)
--- NOTE | 2017-09-11 11:27 | CP.PCM.CON ---
History of Present Illness - History of Present Illness History of Present Illness: This is a 77 yrs old female who jones noticed a mass in the left breast several months ago. Because her sister had of brast cancer, she was reluctant to have anything done about it. Over 1 month she has had increasing shortness of breath, and finally came to the hospital for shortnes of breath. she had a chest xray showinf bilateral pleural effusion,confirmed with a CT scan of the chest, She also has a large fungating mass in the left breast almost completely involving the left breast, there was also evidence of some bone involvement , and more nodules in the right lung and bilateral axillary adenopathy. She had a thoracentesis done yesterday , 450 cc of fluid removed and is sent for cytology. If ER ID and HER cannot be fone from the specimen she will need a biopsy of the breast. She is very nervous but would like to know the extent of her disease so she can know what options are available to her. She has made herself a DNR for now but is open to treatment once she how much disease she has and if she can maintain a decent quality of life. CBC is stable Chemistries show elevated LFT ? liver metastasis Her sister of breast cancer. She never smoked or took any drugs No h/o alcohol abuse. Past Patient History - Infectious Disease Hx of Infectious Diseases: None - Past Medical History & Family History Past Medical History?: Yes - Past Social History Smoking Status: Never Smoked - CARDIAC Hx Cardiac Disorders: Yes Hx Atrial Fibrillation: Yes Hx Congestive Heart Failure: Yes Hx Hypertension: Yes - PULMONARY Hx Respiratory Disorders: No - NEUROLOGICAL Hx Neurological Disorder: No - HEENT Hx HEENT Problems: Yes Other/Comment: wears glasses - RENAL Hx Chronic Kidney Disease: No - ENDOCRINE/METABOLIC Hx Endocrine Disorders: No - HEMATOLOGICAL/ONCOLOGICAL Hx Blood Disorders: No - INTEGUMENTARY Hx Dermatological Problems: Yes Other/Comment: Left breast wound, present on admission. - MUSCULOSKELETAL/RHEUMATOLOGICAL Hx Musculoskeletal Disorders: Yes Hx Back Pain: Yes Hx Falls: No - GASTROINTESTINAL Hx Gastrointestinal Disorders: No - GENITOURINARY/GYNECOLOGICAL Hx Genitourinary Disorders: No - PSYCHIATRIC Hx Psychophysiologic Disorder: No Hx Substance Use: No - SURGICAL HISTORY Hx Surgeries: No - ANESTHESIA Hx Anesthesia: No Meds Allergies/Adverse Reactions: Allergies Allergy/AdvReac Type Severity Reaction Status Date / Time No Known Allergies Allergy Verified 09/04/17 17:41 - Medications Medications: Current Medications Acetaminophen (Tylenol 325mg Tab) 650 mg PO Q6H PRN PRN Reason: Pain, Mild (1-3) Last Admin: 09/10/17 16:31 Dose: 650 mg Allopurinol (Zyloprim) 100 mg PO DAILY [facility] Last Admin: 09/11/17 08:36 Dose: 100 mg Docusate Sodium (Colace) 100 mg PO BID [facility] Last Admin: 09/11/17 08:32 Dose: 100 mg Ergocalciferol (Drisdol 50,000 Intl Units Cap) 1 cap PO FR [facility] Last Admin: 09/09/17 04:23 Dose: Not Given Ferrous Sulfate (Feosol) 325 mg PO DAILY [facility] Last Admin: 09/11/17 08:33 Dose: 325 mg Ceftriaxone Sodium 1 gm/ (Sodium Chloride) 100 mls @ 100 mls/hr IVPB DAILY [facility] PRN Reason: Protocol Last Admin: 09/11/17 08:34 Dose: 100 mls/hr Sodium Chloride (Sodium Chloride 0.9%) 1,000 mls @ 40 mls/hr IV .Q24H [facility] Stop: 09/11/17 14:13 Last Admin: 09/10/17 16:35 Dose: 40 mls/hr Norepinephrine Bitartrate 4 mg (/ Dextrose) 254 mls @ 9.52 mls/hr IV .Q24H [facility] ; 2.5 MCG/MIN PRN Reason: Protocol Last Titration: 09/11/17 08:33 Dose: 0 mcg/min, 0 mls/hr Metoprolol Succinate (Toprol Xl) 25 mg PO DAILY [facility] Last Admin: 09/11/17 08:36 Dose: 25 mg Ondansetron HCl (Zofran Odt) 4 mg PO Q8H PRN PRN Reason: Nausea/Vomiting Oxycodone/Acetaminophen (Percocet 5/325 Mg Tab) 1 tab PO Q6 PRN PRN Reason: Pain, moderate (4-7) Stop: 09/14/17 08:40 Last Admin: 09/11/17 08:44 Dose: 1 tab Rivaroxaban (Xarelto) 15 mg PO HS [facility] PRN Reason: Protocol Last Admin: 09/10/17 21:55 Dose: 15 mg Sodium Hypochlorite (Dakins Solution 0.25%) 20 ml TOP BID [facility] Last Admin: 09/11/17 08:32 Dose: 20 ml Physical Exam - Additional Findings Additional findings: Physical exam; Alert, well oriented inmild respiratory distres neck; supple, no mass Chest; Left breast has a large fungating mass occupying almost the entire breast , No mass palpable right breat, but she has bilateral axillary adenopaathy Air entry somewhat decreased bilaterally Heart; RSR, grade 2/6 systolic murmur Abd ; Slightly obese , no mass palpable Results - Vital Signs Recent Vital Signs: Last Vital Signs Temp 97.5 F L 09/11/17 08:00 Pulse 105 H 09/11/17 08:36 Resp 20 09/11/17 08:00 BP 109/57 L 09/11/17 08:36 Pulse Ox 98 09/11/17 08:00 - Labs Result Diagrams: 09/11/17 06:17 09/11/17 06:17 Labs: Laboratory Results - last 24 hr 09/11/17 09/11/17 06:17 06:17 WBC 8.5 RBC 3.52 L Hgb 11.1 L Hct 34.2 MCV 97.1 MCH 31.5 H MCHC 32.5 L RDW 15.4 H Plt Count 217 Sodium 134 Potassium 5.2 H Chloride 95 L Carbon Dioxide 30 Anion Gap 14 BUN 52 H Creatinine 1.4 H Est GFR ( Amer) 44 Est GFR (Non-Af Amer) 37 Random Glucose 93 Calcium 9.1 Assessment & Plan - Assessment and Plan (Free Text) Assessment: Impression; 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 Plan: Plan; Would like to know the extent of the disease and the hormonal status before discussing options for treatment options if there are any. If she hs liver metastasis i feel she should only have supportive care. If the liver is not involved she can be offered Chemo followed by RT., and zometa for bone metastasis Have ordered bone scan and ct of the abd and pelvis to r/o liver metastasis - Date & Time Date: 09/11/17 Time: 11:57
[2017-09-11] MEDS: Sodium Chloride 0.45% 1,000 ML IV SCH (16:17)
--- NOTE | 2017-09-11 17:23 | CP.PCM.PN ---
Subjective - Date & Time of Evaluation Date of Evaluation: 09/11/17 Time of Evaluation: 17:22 - Subjective Subjective: s/p thoracentesis wants to be DNR doesn't want any invasive rx Objective - Vital Signs/Intake and Output Vital Signs (last 24 hours): Temp Pulse Resp BP Pulse Ox 97.8 F 87 18 96/68 L 99 09/11/17 16:00 09/11/17 16:00 09/11/17 16:00 09/11/17 16:00 09/11/17 16:00 Intake and Output: 09/11/17 09/11/17 06:59 18:59 Intake Total 246.5 51.5 Balance 246.5 51.5 - Medications Medications: Current Medications Acetaminophen (Tylenol 325mg Tab) 650 mg PO Q6H PRN PRN Reason: Pain, Mild (1-3) Last Admin: 09/10/17 16:31 Dose: 650 mg Allopurinol (Zyloprim) 100 mg PO DAILY [facility] Last Admin: 09/11/17 08:36 Dose: 100 mg Docusate Sodium (Colace) 100 mg PO BID [facility] Last Admin: 09/11/17 16:17 Dose: 100 mg Ergocalciferol (Drisdol 50,000 Intl Units Cap) 1 cap PO FR [facility] Last Admin: 09/09/17 04:23 Dose: Not Given Ferrous Sulfate (Feosol) 325 mg PO DAILY [facility] Last Admin: 09/11/17 08:33 Dose: 325 mg Ceftriaxone Sodium 1 gm/ (Sodium Chloride) 100 mls @ 100 mls/hr IVPB DAILY [facility] PRN Reason: Protocol Last Admin: 09/11/17 08:34 Dose: 100 mls/hr Norepinephrine Bitartrate 4 mg (/ Dextrose) 254 mls @ 9.52 mls/hr IV .Q24H [facility] ; 2.5 MCG/MIN PRN Reason: Protocol Last Titration: 09/11/17 08:33 Dose: 0 mcg/min, 0 mls/hr Sodium Chloride (Sodium Chloride 0.45%) 1,000 mls @ 50 mls/hr IV .Q20H [facility] Stop: 09/12/17 15:32 Last Admin: 09/11/17 16:17 Dose: 50 mls/hr Metoprolol Succinate (Toprol Xl) 25 mg PO DAILY [facility] Last Admin: 09/11/17 08:36 Dose: 25 mg Ondansetron HCl (Zofran Odt) 4 mg PO Q8H PRN PRN Reason: Nausea/Vomiting Oxycodone/Acetaminophen (Percocet 5/325 Mg Tab) 1 tab PO Q6 PRN PRN Reason: Pain, moderate (4-7) Stop: 09/14/17 08:40 Last Admin: 09/11/17 08:44 Dose: 1 tab Rivaroxaban (Xarelto) 15 mg PO HS [facility] PRN Reason: Protocol Last Admin: 09/10/17 21:55 Dose: 15 mg Sodium Hypochlorite (Dakins Solution 0.25%) 20 ml TOP BID [facility] Last Admin: 09/11/17 08:32 Dose: 20 ml - Labs Labs: 09/11/17 06:17 09/11/17 06:17 PT 17.4 Seconds (9.8-13.1) H 09/06/17 04:20 INR 1.6 (0.9-1.2) H 09/06/17 04:20 APTT 33.8 Seconds (25.6-37.1) 09/06/17 04:20 - Constitutional Appears: Well - Head Exam Head Exam: ATRAUMATIC, NORMAL INSPECTION, NORMOCEPHALIC - Eye Exam Eye Exam: EOMI, Normal appearance, PERRL Pupil Exam: NORMAL ACCOMODATION, PERRL - ENT Exam ENT Exam: Mucous Membranes Moist, Normal Exam - Neck Exam Neck Exam: Full ROM, Normal Inspection. absent: Lymphadenopathy - Respiratory Exam Respiratory Exam: Rales, Wheezes - Cardiovascular Exam Cardiovascular Exam: Irregular Rhythm, +S1, +S2, Murmur - GI/Abdominal Exam GI & Abdominal Exam: Soft, Normal Bowel Sounds. absent: Tenderness - Extremities Exam Extremities Exam: Full ROM, Normal Capillary Refill, Normal Inspection. absent : Joint Swelling, Pedal Edema - Back Exam Back Exam: NORMAL INSPECTION - Neurological Exam Neurological Exam: Alert, Awake, CN II-XII Intact, Normal Gait, Oriented x3 - Psychiatric Exam Psychiatric exam: Normal Affect, Normal Mood - Skin Skin Exam: Dry, Intact, Normal Color, Warm Assessment and Plan (1) Atrial fibrillation Status: Acute (2) CHF (congestive heart failure) Status: Acute (3) Pleural effusion, bilateral Status: Acute (4) HTN (hypertension) Status: Acute
--- NOTE | 2017-09-11 22:31 | PN ---
DATE: 09/11/2017 CRITICAL CARE PROGRESS NOTE LOCATION: The patient in ICU, bed 422. TIME SPENT: 35 minutes. The patient is seen and evaluated at the bedside. Past medical, surgical, family, and social history reviewed. SUBJECTIVE: A 77-year-old female, nonsmoker, history of hypertension, congestive heart failure, chronic atrial fibrillation on Xarelto, fungating mass involving left breast, admitted with increasing shortness of breath. Chest x-ray and CT angiogram consistent with bilateral pleural effusion and associated atelectasis. Overnight status post right thoracentesis, drained 450 mL of serosanguineous fluid, postprocedure chest x-ray no pneumothorax. The patient feels better with less short of breath. Remained normotensive, afebrile. This morning alert and awake, follows commands appropriate, seen by oncology consult and noted recommendations. OBJECTIVE: VITAL SIGNS: Temperature 97.9, heart rate 80, blood pressure 100/55, respiratory rate of 14, thoracoabdominal, saturation 99% on high-flow nasal oxygen 50%. Intake 1643, output 1580, positive balance 63.5. Weight reduce since admission. HEAD, EYES, EARS, NOSE AND THROAT: Pupils are reactive. Conjunctivae pink. Sclerae white. NECK: Supple. CHEST: Bilateral breath sounds present, diminished in intensity, improved aeration on the right. HEART: Rhythm regular. No audible murmur. ABDOMEN: Pendulous. Bowel sounds present. Soft. EXTREMITIES: 2+ pitting edema. NEUROLOGIC: Nonfocal. SKIN: Without rash. CURRENT MEDICATIONS: Include Tylenol 650 q. 6 p.r.n., ceftriaxone 1 g IV daily, Colace 100 mg b.i.d., ergocalciferol 1 capsule p.o. daily, ferrous sulfate 325 mg p.o. daily, Toprol XL at 25 mg p.o. daily, Percocet 5/325 mg p.o. q. 6 p.r.n., Xarelto 50 mg p.o. at bedtime, and sodium chloride at 40 mL/hour. LABORATORY DATA: WBC 8.5, hemoglobin 11.1, hematocrit 34.2, platelet count of 217. PT 17.4, INR 1.6, PTT 33.8. ABG, pH of 7.39, pCO2 51, pO2 145 on FiO2 60%, high-flow nasal oxygen. SMA-7 sodium 134, potassium 5.2, chloride 95, CO2 30, blood urea nitrogen 52, creatinine 1.4, random glucose 93, calcium 9.1, albumin 3. Digoxin level 2.7. Chest x-ray postprocedure thoracentesis on of 09/10/2017, no change in moderate to pleural effusion, effusions are larger on the right and metastatic lesion in the left proximal humeral head. IMPRESSION: 1. Neuro: Alert and awake, follows commands appropriate. No loss of short-term memory. 2. Pulmonary: Bilateral pleural effusions with a compressive atelectasis status post 450 mL fluid drained right, improved respiratory efficiency. Less short of breath, pleural effusion on the left side concerned about the metastatic spread to the pleural cavity. 3. Cardiac: Chronic atrial fibrillation, rate controlled on furosemide and Xarelto, metoprolol 25 mg every 8 hours, lisinopril, acute on chronic systolic heart failure. 4. Hematology: No leukocytosis, anemia probably chronic disease, underlying suspected malignancy of the left breast with metastasis. 5. Renal: Chronic renal insufficiency. BUN and creatinine increased. No electrolyte abnormalities noted. 6. Endocrinology: Keep blood sugar less than 180. TSH third generation within normal limits. 7. Keep head of bed 30 degrees up. Deep venous thrombosis prophylaxis. Continue Xarelto 20 mg daily. Gastrointestinal prophylaxis. Liver enzymes on admission within normal limits, now noted to have increase in AST borderline, suspect cholestasis and/or due to the drug effect, however metastasis cannot be excluded. Serafin Campo MD
[2017-09-12] MEDS: Oxycodone/Acetaminophen 5/325 mg Tab PO PRN ×2 (02:19→18:10)
[2017-09-12 06:36] LABS: HEMOGLOBIN 11.1 g/dL (12.0-16.0); MEAN CELL VOLUME 98.3 fl (81.0-99.0); MEAN CORPUSCULAR HGB CONC 31.5 g/dL (33.0-37.0); RBC 3.57 Mil/uL (3.80-5.20); RED CELL DISTRIBUTION WIDTH 15.9 % (11.5-14.5); WHITE BLOOD COUNT 8.5 K/uL (4.8-10.8)
[2017-09-12 06:43] LABS: CALCIUM 9.3 mg/dL (8.4-10.2)
--- NOTE | 2017-09-12 08:53 | CP.PCM.PN ---
Subjective - Date & Time of Evaluation Date of Evaluation: 09/12/17 Time of Evaluation: 07:40 - Subjective Subjective: CT Surgery Pt Seen and Examined. Feeling ok today. On vapotherm 50, sats 100%. On 5 of norepinephrine. Agreeable to breast CA workup. Objective - Vital Signs/Intake and Output Vital Signs (last 24 hours): Temp Pulse Resp BP Pulse Ox 97.9 F 89 15 109/73 100 09/12/17 04:00 09/12/17 06:00 09/12/17 08:16 09/12/17 06:00 09/12/17 06:00 Intake and Output: 09/12/17 09/12/17 06:59 18:59 Intake Total 550 Balance 550 - Medications Medications: Current Medications Acetaminophen (Tylenol 325mg Tab) 650 mg PO Q6H PRN PRN Reason: Pain, Mild (1-3) Last Admin: 09/10/17 16:31 Dose: 650 mg Allopurinol (Zyloprim) 100 mg PO DAILY [facility] Last Admin: 09/11/17 08:36 Dose: 100 mg Docusate Sodium (Colace) 100 mg PO BID [facility] Last Admin: 09/11/17 16:17 Dose: 100 mg Ergocalciferol (Drisdol 50,000 Intl Units Cap) 1 cap PO FR [facility] Last Admin: 09/09/17 04:23 Dose: Not Given Ferrous Sulfate (Feosol) 325 mg PO DAILY [facility] Last Admin: 09/11/17 08:33 Dose: 325 mg Ceftriaxone Sodium 1 gm/ (Sodium Chloride) 100 mls @ 100 mls/hr IVPB DAILY [facility] PRN Reason: Protocol Last Admin: 09/11/17 08:34 Dose: 100 mls/hr Sodium Chloride (Sodium Chloride 0.45%) 1,000 mls @ 50 mls/hr IV .Q20H [facility] Stop: 09/12/17 15:32 Last Admin: 09/11/17 16:17 Dose: 50 mls/hr Metoprolol Succinate (Toprol Xl) 25 mg PO DAILY [facility] Last Admin: 09/11/17 08:36 Dose: 25 mg Ondansetron HCl (Zofran Odt) 4 mg PO Q8H PRN PRN Reason: Nausea/Vomiting Last Admin: 09/12/17 05:46 Dose: 4 mg Oxycodone/Acetaminophen (Percocet 5/325 Mg Tab) 1 tab PO Q6 PRN PRN Reason: Pain, moderate (4-7) Stop: 09/14/17 08:40 Last Admin: 09/12/17 02:19 Dose: 1 tab Rivaroxaban (Xarelto) 15 mg PO HS [facility] PRN Reason: Protocol Last Admin: 09/11/17 22:27 Dose: 15 mg Sodium Hypochlorite (Dakins Solution 0.25%) 20 ml TOP BID [facility] Last Admin: 09/11/17 18:14 Dose: 20 ml - Labs Labs: 09/12/17 06:20 09/12/17 06:20 PT 17.4 Seconds (9.8-13.1) H 09/06/17 04:20 INR 1.6 (0.9-1.2) H 09/06/17 04:20 APTT 33.8 Seconds (25.6-37.1) 09/06/17 04:20 - Constitutional Appears: Non-toxic, No Acute Distress - Head Exam Head Exam: ATRAUMATIC, NORMOCEPHALIC - Eye Exam Eye Exam: EOMI. absent: Scleral icterus - Respiratory Exam Respiratory Exam: NORMAL BREATHING PATTERN (on vapotherm). absent: Respiratory Distress - Cardiovascular Exam Cardiovascular Exam: +S1, +S2 - GI/Abdominal Exam GI & Abdominal Exam: Soft. absent: Distended, Tenderness - Back Exam Additional comments: Mild R flank pain - Neurological Exam Neurological Exam: Alert, Awake, Oriented x3 - Skin Skin Exam: Dry, Warm Assessment and Plan - Assessment and Plan (Free Text) Assessment: 77F with B/L pleural effusions POD 2 s/p R thoracentesis Plan: -Thoracentesis or chrest drain PRN -f/u cytology/cx of pleural fluids D/W Dr. Harpreet Almanza PGY4
[2017-09-12] MEDS: Dakin's Topical 0.25%-Half Strength (480 ml) TOP SCH ×2 (09:15→16:13)
[2017-09-12] MEDS: Metoprolol Succinate 25 mg XL Tab PO SCH ×2 (09:17→09:35)
--- NOTE | 2017-09-12 09:30 | CP.CCUPN ---
CCU Subjective - Physician Review Subjective (Free Text): 09/12/17 15:51 The patient was Seen and examined by me at the bedside during ICU round, Events reviewed, Awake, comfortable, NAD Alert and oriented to self. Breathing unlabored Clinically and hemodynamically improved Remains on Vasopressors with Levophed at 5 mch/min On supplemental Oxygen via high flow nasal cannula Last 24H I&O 1643/1580 Denies any chest pain, SOB or Palpitations Afebrile, NSR on the monitor Scheduled for CT abdomen/Pelvis/chest Lasix dose changed to 20 mg BID Echo: EF normal, Dilated cardiomyopathy, Pulmonary HTN. Pt DNR/DNI Critical Care Time Spent (in minutes): 37 CCU Objective - Vital Signs / Intake & Output Vital Signs (Last 4 hours): Vital Signs Temp Pulse Resp BP Pulse Ox 09/12/17 09:17 107 H 111/74 09/12/17 08:16 15 09/12/17 08:00 97.6 F 91 H 19 108/70 100 09/12/17 06:00 89 15 109/73 100 09/12/17 05:59 17 Intake and Output (Last 8hrs): Intake & Output 09/11/17 09/12/17 09/12/17 22:59 06:59 14:59 Intake Total 850 200 Balance 850 200 Intake: IV 550 200 Oral 300 Other: # Voids Urine, Voided 1 1 - Physical Exam Head: Positive for: Atraumatic, Normocephalic Pupils: Positive for: PERRL Conjunctiva: Positive for: Normal Mouth: Positive for: Moist Mucous Membranes Nose (External): Positive for: Atraumatic Neck: Positive for: Normal Range of Motion Respiratory/Chest: Positive for: Clear to Auscultation Cardiovascular: Positive for: Irregular Rhythm Abdomen: Positive for: Normal Bowel Sounds Upper Extremity: Positive for: Normal Inspection Lower Extremity: Positive for: Edema Neurological: Positive for: Other (lethargic) - Medications Active Medications: Active Medications Generic Name Dose Route Start Last Admin Trade Name Freq PRN Reason Stop Dose Admin Acetaminophen 650 mg 09/09/17 04:03 09/12/17 09:18 Tylenol 325mg Tab PO 650 mg Q6H PRN Administration Pain, Mild (1-3) Allopurinol 100 mg 09/09/17 09:00 09/11/17 08:36 Zyloprim PO 100 mg DAILY [facility] Administration Docusate Sodium 100 mg 09/09/17 09:00 09/12/17 09:14 Colace PO 100 mg BID [facility] Administration Ergocalciferol 1 cap 09/09/17 04:03 09/09/17 04:23 Drisdol 50,000 Intl Units Cap PO Not Given FR [facility] Fentanyl 1 patch 09/12/17 09:15 Duragesic TD Q3D [facility] Protocol Ferrous Sulfate 325 mg 09/09/17 09:00 09/12/17 09:16 Feosol PO 325 mg DAILY [facility] Administration Sodium Chloride 1,000 mls @ 50 mls/hr 09/11/17 15:45 09/11/17 16:17 Sodium Chloride 0.45% IV 09/12/17 15:32 50 mls/hr .Q20H [facility] Administration Metoprolol Succinate 25 mg 09/09/17 09:00 09/12/17 09:17 Toprol Xl PO 25 mg DAILY [facility] Administration Ondansetron HCl 4 mg 09/09/17 04:03 09/12/17 05:46 Zofran Odt PO 4 mg Q8H PRN Administration Nausea/Vomiting Oxycodone/Acetaminophen 1 tab 09/11/17 08:39 09/12/17 02:19 Percocet 5/325 Mg Tab PO 09/14/17 08:40 1 tab Q6 PRN Administration Pain, moderate (4-7) Rivaroxaban 15 mg 09/09/17 22:00 09/11/17 22:27 Xarelto PO 15 mg HS [facility] Administration Protocol Sodium Hypochlorite 20 ml 09/09/17 09:00 09/12/17 09:15 Dakins Solution 0.25% TOP 20 ml BID [facility] Administration - Patient Studies Lab Studies: Microbiology Studies 09/10/17 18:50 Gram Stain - Final Pleural Fluid Body Fluid Culture - Preliminary NO GROWTH AFTER 24 HOURS Lab Studies 09/12/17 09/12/17 Range/Units 06:20 06:20 WBC 8.5 (4.8-10.8) K/uL RBC 3.57 L (3.80-5.20) Mil/uL Hgb 11.1 L (12.0-16.0) g/dL Hct 35.1 (34.0-47.0) % MCV 98.3 (81.0-99.0) fl MCH 31.0 (27.0-31.0) pg MCHC 31.5 L (33.0-37.0) g/dL RDW 15.9 H (11.5-14.5) % Plt Count 241 (130-400) K/uL Sodium 132 (132-148) mmol/l Potassium 5.5 H (3.6-5.0) MMOL/L Chloride 94 L (98-107) mmol/L Carbon Dioxide 31 H (22-30) mmol/L Anion Gap 13 (10-20) BUN 48 H (7-17) mg/dl Creatinine 1.4 H (0.7-1.2) mg/dl Est GFR ( Amer) 44 Est GFR (Non-Af Amer) 37 Random Glucose 110 H (65-105) mg/dL Calcium 9.3 (8.4-10.2) mg/dL Laboratory Results - last 24 hr 09/12/17 09/12/17 06:20 06:20 WBC 8.5 RBC 3.57 L Hgb 11.1 L Hct 35.1 MCV 98.3 MCH 31.0 MCHC 31.5 L RDW 15.9 H Plt Count 241 Sodium 132 Potassium 5.5 H Chloride 94 L Carbon Dioxide 31 H Anion Gap 13 BUN 48 H Creatinine 1.4 H Est GFR ( Amer) 44 Est GFR (Non-Af Amer) 37 Random Glucose 110 H Calcium 9.3 Critical Care Progress Note - Nutrition Nutrition: Nutrition Category Date Time Status Heart Healthy Diet [DIET] Diets 09/04/17 Dinner Active Assessment/Plan (1) Respiratory insufficiency Current Visit: Yes Status: Acute Priority: High Comment: Respiratory insufficiency sec to CHF and Bilateral pleural effusion - O2 supplement, Pt on HFNC, FIO2 50 %. - Pulmonary toilets - Continue meds - S/P right side Thoracentesis (2) Acute diastolic CHF (congestive heart failure) Current Visit: Yes Status: Acute Priority: High Comment: Continue diuresis with lasix 20 mg BID Optimize fluid status Strict I&O, daily Wt Negative fluid balance (3) Atrial fibrillation Current Visit: Yes Status: Acute (4) HTN (hypertension) Current Visit: Yes Status: Acute (5) Metastatic breast cancer Current Visit: Yes Status: Acute (6) Pleural effusion, bilateral Current Visit: Yes Status: Acute (7) Renal insufficiency Current Visit: Yes Status: Acute
[2017-09-12] MEDS ORDERED: Iohexol 240 (50 ml) PO ONE (09:40)
[2017-09-12] MEDS: Sodium Chloride 0.45% 1,000 ML IV SCH (11:01)
--- NOTE | 2017-09-12 11:01 | CP.PCM.PN ---
Subjective - Date & Time of Evaluation Date of Evaluation: 09/12/17 Time of Evaluation: 07:15 - Subjective Subjective: Patient seen and examined bedside with Dr Hassan. Patient on high flow 30 , FIO2 50 %. Patient s/p day 2 right side thoracentesis. Patient on mild respiratory distress, anxious, AAO x3. reports body aches. Denies chest pain, n , abd pain Objective - Vital Signs/Intake and Output Vital Signs (last 24 hours): Temp Pulse Resp BP Pulse Ox 97.6 F 107 H 15 104/71 100 09/12/17 08:00 09/12/17 09:35 09/12/17 08:16 09/12/17 10:37 09/12/17 08:00 Intake and Output: 09/12/17 09/12/17 06:59 18:59 Intake Total 550 Balance 550 - Medications Medications: Current Medications Acetaminophen (Tylenol 325mg Tab) 650 mg PO Q6H PRN PRN Reason: Pain, Mild (1-3) Last Admin: 09/12/17 09:18 Dose: 650 mg Allopurinol (Zyloprim) 100 mg PO DAILY [facility] Last Admin: 09/11/17 08:36 Dose: 100 mg Docusate Sodium (Colace) 100 mg PO BID [facility] Last Admin: 09/12/17 09:14 Dose: 100 mg Ergocalciferol (Drisdol 50,000 Intl Units Cap) 1 cap PO FR [facility] Last Admin: 09/09/17 04:23 Dose: Not Given Fentanyl (Duragesic) 1 patch TD Q3D [facility] PRN Reason: Protocol Ferrous Sulfate (Feosol) 325 mg PO DAILY [facility] Last Admin: 09/12/17 09:16 Dose: 325 mg Furosemide (Lasix) 20 mg IVP Q12 [facility] Last Admin: 09/12/17 10:37 Dose: 20 mg Sodium Chloride (Sodium Chloride 0.45%) 1,000 mls @ 50 mls/hr IV .Q20H [facility] Stop: 09/12/17 15:32 Last Admin: 09/11/17 16:17 Dose: 50 mls/hr Norepinephrine Bitartrate 4 mg (/ Dextrose) 254 mls @ 19.05 mls/hr IV .[id number] [facility]; 5 MCG/MIN PRN Reason: Protocol Metoprolol Succinate (Toprol Xl) 25 mg PO DAILY [facility] Last Admin: 09/12/17 09:35 Dose: Not Given Ondansetron HCl (Zofran Odt) 4 mg PO Q8H PRN PRN Reason: Nausea/Vomiting Last Admin: 09/12/17 05:46 Dose: 4 mg Oxycodone/Acetaminophen (Percocet 5/325 Mg Tab) 1 tab PO Q6 PRN PRN Reason: Pain, moderate (4-7) Stop: 09/14/17 08:40 Last Admin: 09/12/17 02:19 Dose: 1 tab Rivaroxaban (Xarelto) 15 mg PO HS [facility] PRN Reason: Protocol Last Admin: 09/11/17 22:27 Dose: 15 mg Sodium Hypochlorite (Dakins Solution 0.25%) 20 ml TOP BID [facility] Last Admin: 09/12/17 09:15 Dose: 20 ml - Labs Labs: 09/12/17 06:20 09/12/17 06:20 PT 17.4 Seconds (9.8-13.1) H 09/06/17 04:20 INR 1.6 (0.9-1.2) H 09/06/17 04:20 APTT 33.8 Seconds (25.6-37.1) 09/06/17 04:20 - Constitutional Appears: In Acute Distress (from mild respiratory distress) - Head Exam Head Exam: ATRAUMATIC, NORMOCEPHALIC - Eye Exam Eye Exam: Normal appearance - ENT Exam ENT Exam: Mucous Membranes Moist - Respiratory Exam Respiratory Exam: Decreased Breath Sounds. absent: Rhonchi, Wheezes Additional comments: b/l 2/3 lung zhang - Cardiovascular Exam Cardiovascular Exam: Irregular Rhythm, +S1, +S2 - GI/Abdominal Exam GI & Abdominal Exam: Soft, Normal Bowel Sounds. absent: Tenderness - Extremities Exam Extremities Exam: Pedal Edema (2+ b/l ) - Back Exam Back Exam: NORMAL INSPECTION - Neurological Exam Neurological Exam: Alert, Awake, Oriented x3 - Psychiatric Exam Psychiatric exam: Anxious - Skin Skin Exam: Intact Assessment and Plan - Assessment and Plan (Free Text) Plan: Assessment/Plan 1) Respiratory failure -on ICU again -Hig flow oxygen -s/p right thoracentesis day 2 -f/u CXR 2) Diastolic CHF exacerbation - Pro BNP of 5190 - Echo: EF normal. Dilated cardiomyopathy. Pulmonary HTN -lasix 20 mg BID -on levophed -Cardiology consult appreciated 3) Bilateral Pleural effusion -secondary CHF vs metastatic breast Ca -CXR: mod b/l pleural effusions -s/p right thoracentesis day 2 -Pulmonology consult appreciated: c/s rocephin added 4) Atrial Fibrilation Chronic on Xarelto -c/w digoxin, metroprolol 5) HTN Controlled -c/w home meds 6) Left breast mass -secondary to high probability of breast CA with bone mets -Hem-Onc consult appreciated: for Ct abd Po contrast today 7) DVT prophylaxis -On anticoagulation with Xarelto
--- NOTE | 2017-09-12 14:37 | CP.PCM.PN ---
Subjective - Date & Time of Evaluation Date of Evaluation: 09/12/17 Time of Evaluation: 14:27 - Subjective Subjective: Reason for consultation: Bilat pleural effusions + sob. Requested by Dr Grace.77 yo female with pmh of chf, afib, and left breast mass presented with bilat pleural effusions and sof. Pt consented only for thoracentesis. Right effusion drained with 20f cath. 400cc evacuated. cxr still shows bilateral effusions. CT of chest ordered to evaluate the status of effusions post thoracentesis. SOB improved. a/p: s/p Thoacentesis. ct of chest today. Objective - Vital Signs/Intake and Output Vital Signs (last 24 hours): Temp Pulse Resp BP Pulse Ox 98.6 F 102 H 15 110/74 98 09/12/17 12:00 09/12/17 12:00 09/12/17 12:00 09/12/17 12:00 09/12/17 12:00 Intake and Output: 09/12/17 09/12/17 06:59 18:59 Intake Total 550 200 Output Total 100 Balance 550 100 - Medications Medications: Current Medications Acetaminophen (Tylenol 325mg Tab) 650 mg PO Q6H PRN PRN Reason: Pain, Mild (1-3) Last Admin: 09/12/17 09:18 Dose: 650 mg Allopurinol (Zyloprim) 100 mg PO DAILY [facility] Last Admin: 09/12/17 11:22 Dose: 100 mg Docusate Sodium (Colace) 100 mg PO BID [facility] Last Admin: 09/12/17 09:14 Dose: 100 mg Ergocalciferol (Drisdol 50,000 Intl Units Cap) 1 cap PO FR [facility] Last Admin: 09/09/17 04:23 Dose: Not Given Fentanyl (Duragesic) 1 patch TD Q3D [facility] PRN Reason: Protocol Last Admin: 09/12/17 11:25 Dose: 1 patch Ferrous Sulfate (Feosol) 325 mg PO DAILY [facility] Last Admin: 09/12/17 09:16 Dose: 325 mg Furosemide (Lasix) 20 mg IVP Q12 [facility] Last Admin: 09/12/17 10:37 Dose: 20 mg Sodium Chloride (Sodium Chloride 0.45%) 1,000 mls @ 50 mls/hr IV .Q20H [facility] Stop: 09/12/17 15:32 Last Admin: 09/12/17 11:01 Dose: 50 mls/hr Norepinephrine Bitartrate 4 mg (/ Dextrose) 254 mls @ 19.05 mls/hr IV .[id number] [facility]; 5 MCG/MIN PRN Reason: Protocol Lorazepam (Ativan) 0.5 mg PO BID PRN PRN Reason: Anxiety Metoprolol Succinate (Toprol Xl) 25 mg PO DAILY [facility] Last Admin: 09/12/17 09:35 Dose: Not Given Ondansetron HCl (Zofran Odt) 4 mg PO Q8H PRN PRN Reason: Nausea/Vomiting Last Admin: 09/12/17 05:46 Dose: 4 mg Oxycodone/Acetaminophen (Percocet 5/325 Mg Tab) 1 tab PO Q6 PRN PRN Reason: Pain, moderate (4-7) Stop: 09/14/17 08:40 Last Admin: 09/12/17 02:19 Dose: 1 tab Rivaroxaban (Xarelto) 15 mg PO HS [facility] PRN Reason: Protocol Last Admin: 09/11/17 22:27 Dose: 15 mg Sodium Hypochlorite (Dakins Solution 0.25%) 20 ml TOP BID [facility] Last Admin: 09/12/17 09:15 Dose: 20 ml - Labs Labs: 09/12/17 06:20 09/12/17 06:20 PT 17.4 Seconds (9.8-13.1) H 09/06/17 04:20 INR 1.6 (0.9-1.2) H 09/06/17 04:20 APTT 33.8 Seconds (25.6-37.1) 09/06/17 04:20
--- NOTE | 2017-09-12 15:40 | CT ---
PROCEDURE: CT Chest, Abdomen and Pelvis without HISTORY: r/o liver mets COMPARISON: 09/04/2017 CT thorax 09/11/2017 bone scan reported separately TECHNIQUE: Oral contrast only. Intravenous Radiation dose: Total exam DLP = 1270.21 mGy-cm. This CT exam was performed using one or more of the following dose reduction techniques: Automated exposure control, adjustment of the mA and/or kV according to patient size, and/or use of iterative reconstruction technique. FINDINGS: CT CHEST WITH CONTRAST: LUNGS: Compressive atelectasis related to bilateral pleural effusions have increased compared to the prior study. No underlying pulmonary nodules or masses. MEDIASTINUM: Unremarkable. Normal caliber aorta and pulmonary arterial trunk. No aortic dissection. Normal size heart. LYMPH NODES: Contrast right axillary lymphadenopathy. Confluent lymph nodes identified the largest measures 1.5 x 2 cm. PLEURA: Bilateral pleural effusions which have increased since the prior study. BONES: Skeletal metastasis affecting bilateral ribs and thoracic vertebral bodies. These are both lytic and sclerotic. Large lytic lesion proximal left humerus without pathologic fracture OTHER FINDINGS: Solid mass left breast measuring 4.5 x 7.5 cm. The mass appears to extent to the skin surface. There appears to be a tissue plane between the posterior aspect of the mass and the chest wall. CT ABDOMEN AND PELVIS: LIVER: No evidence of hepatic disease. The study is limited in the assessment of abdominal viscera including the liver hypertrophy absence of intravenous contrast and streak artifact from oral contrast is in the colon. GALLBLADDER AND BILE DUCTS: Markedly dilated gallbladder containing gallstones. PANCREAS: Unremarkable. No gross lesion or ductal dilatation. SPLEEN: Unremarkable. ADRENALS: Unremarkable. No mass. KIDNEYS AND URETERS: Unremarkable. No hydronephrosis. No solid mass. VASCULATURE: Unremarkable. No aortic aneurysm. BOWEL: Unremarkable. No obstruction. No gross mural thickening. APPENDIX: Normal appendix. PERITONEUM: Unremarkable. No free fluid. No free air. LYMPH NODES: Unremarkable. No enlarged lymph nodes. BLADDER: Russell catheter identified in a decompressed urinary bladder. REPRODUCTIVE: Unremarkable. BONES: Lytic disease affecting pelvic osseous structures including pelvic ring, left iliac bone, right iliac bone and to lesser extent, sacrum. Primarily lytic disease in lumbar vertebral bodies. There is no evidence of soft tissue mass or resultant bony elements extending into the spinal canal OTHER FINDINGS: Diffuse anasarca, severe in degree. None. Venous access catheter identified right external iliac vein IMPRESSION: 1. Large left breast mass consistent with primary neoplasm of the breast. 2. Suspicious right axillary adenopathy. 3. Widely disseminated osseous metastatic disease affecting thoracolumbar spine, pelvis, ribs, sternum, large lesion in the left proximal humerus. 4. Cholelithiasis without CT evidence of acute cholecystitis. 5. No visualized hepatic metastatic disease. Sensitivity is severely limited by the absence of intravenous contrast in the presence of adjacent high density barium in the colon 6. Severe anasarca, a cutaneous and subcutaneous edema.
--- NOTE | 2017-09-12 16:30 | NM ---
PROCEDURE: Whole Body Bone Scan HISTORY: breast mass with lung mets COMPARISON: No prior bone scans available. CT scan thorax abdomen and pelvis September 12, 2017. TECHNIQUE: Following administration of 27.1 miCu of Tc MDP multiplanar whole body images were obtained. FINDINGS: Evidence for bony metastatic disease: Thoracolumbar spine, pelvis, left humeral head, multiple ribs bilaterally. Degenerative uptake: Bilateral knees Physiologic uptake: Normal physiologic activity in the kidneys. Other findings: None. IMPRESSION: Osseous metastatic disease primarily affecting the axial skeleton.
[2017-09-13] MEDS: Oxycodone/Acetaminophen 5/325 mg Tab PO PRN (04:33)
[2017-09-13 05:50] LABS: BASO # 0.1 K/uL (0.0-0.2); BASO % 0.8 % (0.0-2.0); EOS # 0.2 K/uL (0.0-0.7); EOS % 2.2 % (0.0-4.0); HEMOGLOBIN 10.5 g/dL (12.0-16.0); LYMPH % 14.2 % (20.0-40.0); MEAN CELL VOLUME 98.3 fl (81.0-99.0); MEAN CORPUSCULAR HEMOGLOBIN 31.4 pg (27.0-31.0); MONO # 0.5 K/uL (0.0-0.8); MONO % 7.6 % (0.0-10.0); NEUT # 5.3 K/uL (1.8-7.0); NEUT % 75.2 % (50.0-75.0); RBC 3.34 Mil/uL (3.80-5.20); RED CELL DISTRIBUTION WIDTH 15.7 % (11.5-14.5)
[2017-09-13 06:22] LABS: ALB/GLOB RATIO 0.9 (1.0-2.1); ALBUMIN 3.1 g/dL (3.5-5.0); CALCIUM 9.5 mg/dL (8.4-10.2)
[2017-09-13 07:07] LABS: SQUAMOUS EPITHIAL < 1 /hpf (0-5); URINE BILIRUBIN NEGATIVE (NEGATIVE); URINE BLOOD NEGATIVE (NEGATIVE); URINE CLARITY CLEAR (Clear); URINE COLOR YELLOW (YELLOW); URINE GLUCOSE (UA) NEG (Normal); URINE HYALINE CAST 0-2 /hpf (0-2); URINE LEUKOCYTE ESTERASE NEG Leu/uL (Negative); URINE PROTEIN NEGATIVE (NEGATIVE); URINE UROBILINOGEN 0.2-1.0 mg/dL (0.2-1.0)
--- NOTE | 2017-09-13 07:45 | CP.PCM.PN ---
Subjective - Date & Time of Evaluation Date of Evaluation: 09/13/17 Time of Evaluation: 07:32 - Subjective Subjective: Pt had a bone scan and ct scan of the chest, abd and pelvis. She has diffuse skeleta;l metastasis.in the spine, pelvis and left femur. There is no liver metastasis. There is also involvement of the bilateral ribs. She has a large amount of bilateral pleural effusion. She had refused the chest tubes yesterday , but when I spoke to her today she agreed to have the chest tubes placed today.Pt was very agitated during the night, but responded to ativan. I explained to her that a lot of the anxiety is coming from her not being able to breathe, and the drainage of the fluid will give her instant relief. If pt agrees I feel she should get neoadjuvant chemotherapy followed by surgery and RT. We dont have a report from the cytology of the thoracentesis yet. Objective - Vital Signs/Intake and Output Vital Signs (last 24 hours): Temp Pulse Resp BP Pulse Ox 98.3 F 110 H 17 110/60 98 09/13/17 04:00 09/13/17 06:00 09/13/17 06:00 09/13/17 06:00 09/13/17 06:00 Intake and Output: 09/13/17 09/13/17 06:59 18:59 Intake Total 675 Output Total 1000 Balance -325 - Medications Medications: Current Medications Acetaminophen (Tylenol 325mg Tab) 650 mg PO Q6H PRN PRN Reason: Pain, Mild (1-3) Last Admin: 09/12/17 15:10 Dose: 650 mg Allopurinol (Zyloprim) 100 mg PO DAILY [facility] Last Admin: 09/12/17 11:22 Dose: 100 mg Docusate Sodium (Colace) 100 mg PO BID [facility] Last Admin: 09/12/17 16:14 Dose: 100 mg Ergocalciferol (Drisdol 50,000 Intl Units Cap) 1 cap PO FR [facility] Last Admin: 09/09/17 04:23 Dose: Not Given Fentanyl (Duragesic) 1 patch TD Q3D [facility] PRN Reason: Protocol Last Admin: 09/12/17 11:25 Dose: 1 patch Ferrous Sulfate (Feosol) 325 mg PO DAILY [facility] Last Admin: 09/12/17 09:16 Dose: 325 mg Furosemide (Lasix) 20 mg IVP Q12 [facility] Last Admin: 09/12/17 21:35 Dose: 20 mg Norepinephrine Bitartrate 4 mg (/ Dextrose) 254 mls @ 19.05 mls/hr IV .[id number] [facility]; 5 MCG/MIN PRN Reason: Protocol Lorazepam (Ativan) 0.5 mg PO BID PRN PRN Reason: Anxiety Last Admin: 09/12/17 21:35 Dose: 0.5 mg Metoprolol Succinate (Toprol Xl) 25 mg PO DAILY [facility] Last Admin: 09/12/17 09:35 Dose: Not Given Ondansetron HCl (Zofran Odt) 4 mg PO Q8H PRN PRN Reason: Nausea/Vomiting Last Admin: 09/12/17 05:46 Dose: 4 mg Oxycodone/Acetaminophen (Percocet 5/325 Mg Tab) 1 tab PO Q6 PRN PRN Reason: Pain, moderate (4-7) Stop: 09/14/17 08:40 Last Admin: 09/13/17 04:33 Dose: 1 tab Rivaroxaban (Xarelto) 15 mg PO HS [facility] PRN Reason: Protocol Last Admin: 09/12/17 22:00 Dose: 15 mg Sodium Hypochlorite (Dakins Solution 0.25%) 20 ml TOP BID [facility] Last Admin: 09/12/17 16:13 Dose: 20 ml - Labs Labs: 09/13/17 04:25 09/13/17 04:25 PT 17.4 Seconds (9.8-13.1) H 09/06/17 04:20 INR 1.6 (0.9-1.2) H 09/06/17 04:20 APTT 33.8 Seconds (25.6-37.1) 09/06/17 04:20
--- NOTE | 2017-09-13 08:33 | RAD ---
PROCEDURE: CHEST RADIOGRAPH, 1 VIEW HISTORY: pleural effusion COMPARISON: Frontal chest radiograph 09/10/2017. FINDINGS: LUNGS: There is persistent diminished pulmonary volume bilaterally. Bilateral pleural effusions are unchanged remaining greater at the left and right with underlying airspace disease likely bilaterally. Cardiomediastinal silhouette is partially obscured by effusions and airspace disease but appears stable. Pulmonary vascular pattern is unchanged but remains partially obscured as well. PLEURA: As above. CARDIOVASCULAR: As above. OSSEOUS STRUCTURES: No significant abnormalities. VISUALIZED UPPER ABDOMEN: Normal. OTHER FINDINGS: None. IMPRESSION: Normal change in the left greater the right pleural effusions and underlying bilateral basilar airspace disease. Cardiac vascular pattern is obscured.
--- NOTE | 2017-09-13 08:54 | CP.PCM.PN ---
Subjective - Date & Time of Evaluation Date of Evaluation: 09/13/17 Time of Evaluation: 07:20 - Subjective Subjective: Patient seen and examined bedside with Dr Hassan. Patient on high flow 30 , FIO2 50 %. Patient s/p day 3 right side thoracentesis. Patient on mild respiratory distress, anxious, AAO x3. reports body aches. Anxious overnight. Denies chest pain, n, abd pain Hospice odered Objective - Vital Signs/Intake and Output Vital Signs (last 24 hours): Temp Pulse Resp BP Pulse Ox 97.6 F 108 H 14 109/71 98 09/13/17 08:00 09/13/17 08:00 09/13/17 08:10 09/13/17 08:00 09/13/17 08:00 Intake and Output: 09/13/17 09/13/17 06:59 18:59 Intake Total 675 Output Total 1000 Balance -325 - Medications Medications: Current Medications Acetaminophen (Tylenol 325mg Tab) 650 mg PO Q6H PRN PRN Reason: Pain, Mild (1-3) Last Admin: 09/12/17 15:10 Dose: 650 mg Allopurinol (Zyloprim) 100 mg PO DAILY [facility] Last Admin: 09/12/17 11:22 Dose: 100 mg Docusate Sodium (Colace) 100 mg PO BID [facility] Last Admin: 09/12/17 16:14 Dose: 100 mg Ergocalciferol (Drisdol 50,000 Intl Units Cap) 1 cap PO FR [facility] Last Admin: 09/09/17 04:23 Dose: Not Given Fentanyl (Duragesic) 1 patch TD Q3D [facility] PRN Reason: Protocol Last Admin: 09/12/17 11:25 Dose: 1 patch Ferrous Sulfate (Feosol) 325 mg PO DAILY [facility] Last Admin: 09/12/17 09:16 Dose: 325 mg Furosemide (Lasix) 20 mg IVP Q12 [facility] Last Admin: 09/12/17 21:35 Dose: 20 mg Norepinephrine Bitartrate 4 mg (/ Dextrose) 254 mls @ 19.05 mls/hr IV .[id number] [facility]; 5 MCG/MIN PRN Reason: Protocol Lorazepam (Ativan) 0.5 mg PO BID PRN PRN Reason: Anxiety Last Admin: 09/12/17 21:35 Dose: 0.5 mg Metoprolol Succinate (Toprol Xl) 25 mg PO DAILY [facility] Last Admin: 09/12/17 09:35 Dose: Not Given Ondansetron HCl (Zofran Odt) 4 mg PO Q8H PRN PRN Reason: Nausea/Vomiting Last Admin: 09/12/17 05:46 Dose: 4 mg Oxycodone/Acetaminophen (Percocet 5/325 Mg Tab) 1 tab PO Q6 PRN PRN Reason: Pain, moderate (4-7) Stop: 09/14/17 08:40 Last Admin: 09/13/17 04:33 Dose: 1 tab Rivaroxaban (Xarelto) 15 mg PO HS [facility] PRN Reason: Protocol Last Admin: 09/12/17 22:00 Dose: 15 mg Sodium Hypochlorite (Dakins Solution 0.25%) 20 ml TOP BID [facility] Last Admin: 09/12/17 16:13 Dose: 20 ml - Labs Labs: 09/13/17 04:25 09/13/17 04:25 PT 17.4 Seconds (9.8-13.1) H 09/06/17 04:20 INR 1.6 (0.9-1.2) H 09/06/17 04:20 APTT 33.8 Seconds (25.6-37.1) 09/06/17 04:20 - Constitutional Appears: In Acute Distress (from SOB) - Head Exam Head Exam: ATRAUMATIC, NORMOCEPHALIC - Eye Exam Eye Exam: Normal appearance - Respiratory Exam Respiratory Exam: Decreased Breath Sounds Additional comments: bibasal and 2/3 b/l lung zhang - Cardiovascular Exam Cardiovascular Exam: Irregular Rhythm, +S1, +S2 - GI/Abdominal Exam GI & Abdominal Exam: Soft, Normal Bowel Sounds. absent: Tenderness - Extremities Exam Extremities Exam: Pedal Edema (b/l leg 2+ ) - Neurological Exam Neurological Exam: Alert, Awake, Oriented x3 - Psychiatric Exam Psychiatric exam: Anxious - Skin Skin Exam: Intact Assessment and Plan - Assessment and Plan (Free Text) Plan: Assessment/Plan 1) Respiratory failure -Hig flow oxygen -s/p right thoracentesis day 3 -Pat agree today to have chest tube inserted -Surgery consult suggested -CXR: b/l pleural effusion worse to the left 2) Diastolic CHF exacerbation - Pro BNP of 5190 - Echo: EF normal. Dilated cardiomyopathy. Pulmonary HTN -lasix 20 mg BID -on levophed -Cardiology consult appreciated 3) Bilateral Pleural effusion -secondary CHF vs metastatic breast Ca -CXR: mod b/l pleural effusions -s/p right thoracentesis day 3 -Pulmonology consult appreciated: on rocephin 4) Atrial Fibrilation Chronic on Xarelto -c/w digoxin, metroprolol 5) HTN Controlled -c/w home meds 6) Left breast mass -secondary to high probability of breast CA with bone mets -Hem-Onc consult appreciated 7) DVT prophylaxis -On anticoagulation with Xarelto
[2017-09-13] MEDS: Dakin's Topical 0.25%-Half Strength (480 ml) TOP SCH (10:35)
[2017-09-13] MEDS: Metoprolol Succinate 25 mg XL Tab PO SCH (10:38)
--- NOTE | 2017-09-13 12:21 | CP.PCM.PN ---
Subjective - Date & Time of Evaluation Date of Evaluation: 09/12/17 Time of Evaluation: 12:19 - Subjective Subjective: on pressors s/p thoracentesis very lethargic Objective - Vital Signs/Intake and Output Vital Signs (last 24 hours): Temp Pulse Resp BP Pulse Ox 98.6 F 108 H 16 102/66 99 09/13/17 12:00 09/13/17 12:00 09/13/17 12:00 09/13/17 12:00 09/13/17 12:00 Intake and Output: 09/13/17 09/13/17 06:59 18:59 Intake Total 675 160 Output Total 1000 Balance -325 160 - Medications Medications: Current Medications Acetaminophen (Tylenol 325mg Tab) 650 mg PO Q6H PRN PRN Reason: Pain, Mild (1-3) Last Admin: 09/12/17 15:10 Dose: 650 mg Allopurinol (Zyloprim) 100 mg PO DAILY [facility] Last Admin: 09/13/17 10:39 Dose: 100 mg Docusate Sodium (Colace) 100 mg PO BID [facility] Last Admin: 09/13/17 10:35 Dose: 100 mg Ergocalciferol (Drisdol 50,000 Intl Units Cap) 1 cap PO FR [facility] Last Admin: 09/09/17 04:23 Dose: Not Given Fentanyl (Duragesic) 1 patch TD Q3D [facility] PRN Reason: Protocol Last Admin: 09/12/17 11:25 Dose: 1 patch Ferrous Sulfate (Feosol) 325 mg PO DAILY [facility] Last Admin: 09/13/17 10:36 Dose: 325 mg Furosemide (Lasix) 20 mg IVP Q12 [facility] Last Admin: 09/13/17 10:36 Dose: 20 mg Lorazepam (Ativan) 0.5 mg PO BID PRN PRN Reason: Anxiety Last Admin: 09/12/17 21:35 Dose: 0.5 mg Metoprolol Succinate (Toprol Xl) 25 mg PO DAILY [facility] Last Admin: 09/13/17 10:38 Dose: Not Given Morphine Sulfate (Morphine) 2 mg IVP Q4 PRN PRN Reason: Pain, severe (8-10) Ondansetron HCl (Zofran Odt) 4 mg PO Q8H PRN PRN Reason: Nausea/Vomiting Last Admin: 09/12/17 05:46 Dose: 4 mg Oxycodone/Acetaminophen (Percocet 5/325 Mg Tab) 1 tab PO Q6 PRN PRN Reason: Pain, moderate (4-7) Stop: 09/14/17 08:40 Last Admin: 09/13/17 04:33 Dose: 1 tab Rivaroxaban (Xarelto) 15 mg PO HS [facility] PRN Reason: Protocol Last Admin: 09/12/17 22:00 Dose: 15 mg Sodium Hypochlorite (Dakins Solution 0.25%) 20 ml TOP BID [facility] Last Admin: 09/13/17 10:35 Dose: 20 ml - Labs Labs: 09/13/17 04:25 09/13/17 04:25 PT 17.4 Seconds (9.8-13.1) H 09/06/17 04:20 INR 1.6 (0.9-1.2) H 09/06/17 04:20 APTT 33.8 Seconds (25.6-37.1) 09/06/17 04:20 - Constitutional Appears: Well - Head Exam Head Exam: ATRAUMATIC, NORMAL INSPECTION, NORMOCEPHALIC - Eye Exam Eye Exam: EOMI, Normal appearance, PERRL Pupil Exam: NORMAL ACCOMODATION, PERRL - ENT Exam ENT Exam: Mucous Membranes Moist, Normal Exam - Neck Exam Neck Exam: Full ROM, Normal Inspection. absent: Lymphadenopathy - Respiratory Exam Respiratory Exam: Clear to Ausculation Bilateral, Rales, NORMAL BREATHING PATTERN - Cardiovascular Exam Cardiovascular Exam: REGULAR RHYTHM, +S1, +S2, Murmur - GI/Abdominal Exam GI & Abdominal Exam: Soft, Normal Bowel Sounds. absent: Tenderness - Extremities Exam Extremities Exam: Full ROM, Normal Capillary Refill, Normal Inspection. absent : Joint Swelling, Pedal Edema - Back Exam Back Exam: NORMAL INSPECTION - Neurological Exam Neurological Exam: Alert, Awake, CN II-XII Intact, Oriented x3 - Psychiatric Exam Psychiatric exam: Normal Affect, Normal Mood - Skin Skin Exam: Dry, Intact, Normal Color, Warm Assessment and Plan (1) Atrial fibrillation Assessment & Plan: toprol xl xarelto Status: Acute (2) CHF (congestive heart failure) Assessment & Plan: diastolic pulm htn on pressors Status: Acute (3) Pleural effusion, bilateral Status: Acute (4) HTN (hypertension) Status: Acute
--- NOTE | 2017-09-13 12:26 | CP.PCM.PN ---
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 on pressors lethargic Objective - Vital Signs/Intake and Output Vital Signs (last 24 hours): Temp Pulse Resp BP Pulse Ox 98.6 F 108 H 16 102/66 99 09/13/17 12:00 09/13/17 12:00 09/13/17 12:00 09/13/17 12:00 09/13/17 12:00 Intake and Output: 09/13/17 09/13/17 06:59 18:59 Intake Total 675 160 Output Total 1000 Balance -325 160 - Medications Medications: Current Medications Acetaminophen (Tylenol 325mg Tab) 650 mg PO Q6H PRN PRN Reason: Pain, Mild (1-3) Last Admin: 09/12/17 15:10 Dose: 650 mg Allopurinol (Zyloprim) 100 mg PO DAILY [facility] Last Admin: 09/13/17 10:39 Dose: 100 mg Docusate Sodium (Colace) 100 mg PO BID [facility] Last Admin: 09/13/17 10:35 Dose: 100 mg Ergocalciferol (Drisdol 50,000 Intl Units Cap) 1 cap PO FR [facility] Last Admin: 09/09/17 04:23 Dose: Not Given Fentanyl (Duragesic) 1 patch TD Q3D [facility] PRN Reason: Protocol Last Admin: 09/12/17 11:25 Dose: 1 patch Ferrous Sulfate (Feosol) 325 mg PO DAILY [facility] Last Admin: 09/13/17 10:36 Dose: 325 mg Furosemide (Lasix) 20 mg IVP Q12 [facility] Last Admin: 09/13/17 10:36 Dose: 20 mg Lorazepam (Ativan) 0.5 mg PO BID PRN PRN Reason: Anxiety Last Admin: 09/12/17 21:35 Dose: 0.5 mg Metoprolol Succinate (Toprol Xl) 25 mg PO DAILY [facility] Last Admin: 09/13/17 10:38 Dose: Not Given Morphine Sulfate (Morphine) 2 mg IVP Q4 PRN PRN Reason: Pain, severe (8-10) Ondansetron HCl (Zofran Odt) 4 mg PO Q8H PRN PRN Reason: Nausea/Vomiting Last Admin: 09/12/17 05:46 Dose: 4 mg Oxycodone/Acetaminophen (Percocet 5/325 Mg Tab) 1 tab PO Q6 PRN PRN Reason: Pain, moderate (4-7) Stop: 09/14/17 08:40 Last Admin: 09/13/17 04:33 Dose: 1 tab Rivaroxaban (Xarelto) 15 mg PO HS [facility] PRN Reason: Protocol Last Admin: 09/12/17 22:00 Dose: 15 mg Sodium Hypochlorite (Dakins Solution 0.25%) 20 ml TOP BID [facility] Last Admin: 09/13/17 10:35 Dose: 20 ml - Labs Labs: 09/13/17 04:25 09/13/17 04:25 PT 17.4 Seconds (9.8-13.1) H 09/06/17 04:20 INR 1.6 (0.9-1.2) H 09/06/17 04:20 APTT 33.8 Seconds (25.6-37.1) 09/06/17 04:20 - Constitutional Appears: Well - Head Exam Head Exam: ATRAUMATIC, NORMAL INSPECTION, NORMOCEPHALIC - Eye Exam Eye Exam: EOMI, Normal appearance, PERRL Pupil Exam: NORMAL ACCOMODATION, PERRL - ENT Exam ENT Exam: Mucous Membranes Moist, Normal Exam - Neck Exam Neck Exam: Full ROM, Normal Inspection. absent: Lymphadenopathy - Respiratory Exam Respiratory Exam: Accessory Muscle Use, Rales - Cardiovascular Exam Cardiovascular Exam: REGULAR RHYTHM, +S1, +S2, Murmur - GI/Abdominal Exam GI & Abdominal Exam: Soft, Normal Bowel Sounds. absent: Tenderness - Extremities Exam Extremities Exam: Full ROM, Normal Capillary Refill, Normal Inspection. absent : Joint Swelling, Pedal Edema - Back Exam Back Exam: NORMAL INSPECTION - Neurological Exam Neurological Exam: Alert, Awake, CN II-XII Intact, Normal Gait, Oriented x3 - Psychiatric Exam Psychiatric exam: Normal Affect, Normal Mood - Skin Skin Exam: Dry, Intact, Normal Color, Warm Assessment and Plan (1) Atrial fibrillation Status: Acute (2) CHF (congestive heart failure) Status: Acute (3) Pleural effusion, bilateral Status: Acute (4) HTN (hypertension) Status: Acute
--- NOTE | 2017-09-13 12:43 | CP.PCM.PN ---
Subjective - Date & Time of Evaluation Date of Evaluation: 09/13/17 Time of Evaluation: 12:37 - Subjective Subjective: Pt s/e. Clininical course unchange. ct chest:Increased bilateral pleural effusions and metastatic lesions in the ribs( most likely breast primary) Etiol of effusuons: metastic tumor/CHF. Currently pt is not amenable to surgical intervention. Will consider thoracentesis prn. Objective - Vital Signs/Intake and Output Vital Signs (last 24 hours): Temp Pulse Resp BP Pulse Ox 98.6 F 108 H 16 102/66 99 09/13/17 12:00 09/13/17 12:00 09/13/17 12:00 09/13/17 12:00 09/13/17 12:00 Intake and Output: 09/13/17 09/13/17 06:59 18:59 Intake Total 675 160 Output Total 1000 Balance -325 160 - Medications Medications: Current Medications Acetaminophen (Tylenol 325mg Tab) 650 mg PO Q6H PRN PRN Reason: Pain, Mild (1-3) Last Admin: 09/12/17 15:10 Dose: 650 mg Allopurinol (Zyloprim) 100 mg PO DAILY [facility] Last Admin: 09/13/17 10:39 Dose: 100 mg Docusate Sodium (Colace) 100 mg PO BID [facility] Last Admin: 09/13/17 10:35 Dose: 100 mg Ergocalciferol (Drisdol 50,000 Intl Units Cap) 1 cap PO FR [facility] Last Admin: 09/09/17 04:23 Dose: Not Given Fentanyl (Duragesic) 1 patch TD Q3D [facility] PRN Reason: Protocol Last Admin: 09/12/17 11:25 Dose: 1 patch Ferrous Sulfate (Feosol) 325 mg PO DAILY [facility] Last Admin: 09/13/17 10:36 Dose: 325 mg Furosemide (Lasix) 20 mg IVP Q12 [facility] Last Admin: 09/13/17 10:36 Dose: 20 mg Lorazepam (Ativan) 0.5 mg PO BID PRN PRN Reason: Anxiety Last Admin: 09/12/17 21:35 Dose: 0.5 mg Metoprolol Succinate (Toprol Xl) 25 mg PO DAILY [facility] Last Admin: 09/13/17 10:38 Dose: Not Given Morphine Sulfate (Morphine) 2 mg IVP Q4 PRN PRN Reason: Pain, severe (8-10) Ondansetron HCl (Zofran Odt) 4 mg PO Q8H PRN PRN Reason: Nausea/Vomiting Last Admin: 09/12/17 05:46 Dose: 4 mg Oxycodone/Acetaminophen (Percocet 5/325 Mg Tab) 1 tab PO Q6 PRN PRN Reason: Pain, moderate (4-7) Stop: 09/14/17 08:40 Last Admin: 09/13/17 04:33 Dose: 1 tab Rivaroxaban (Xarelto) 15 mg PO HS [facility] PRN Reason: Protocol Last Admin: 09/12/17 22:00 Dose: 15 mg Sodium Hypochlorite (Dakins Solution 0.25%) 20 ml TOP BID [facility] Last Admin: 09/13/17 10:35 Dose: 20 ml - Labs Labs: 09/13/17 04:25 09/13/17 04:25 PT 17.4 Seconds (9.8-13.1) H 09/06/17 04:20 INR 1.6 (0.9-1.2) H 09/06/17 04:20 APTT 33.8 Seconds (25.6-37.1) 09/06/17 04:20
--- NOTE | 2017-09-13 12:53 | CP.PCM.PN ---
Subjective - Date & Time of Evaluation Date of Evaluation: 09/13/17 Time of Evaluation: 10:30 - Subjective Subjective: Patient seen and examined. Clinical course remains unchanged. Spoke with patient 's niece. At this time family is considering hospice care. Patient's niece still not sure of how aggressive they want to be. As of now, they are having a meeting with hospice care team to determine what options they want to pursue. Objective - Vital Signs/Intake and Output Vital Signs (last 24 hours): Temp Pulse Resp BP Pulse Ox 98.6 F 108 H 16 102/66 99 09/13/17 12:00 09/13/17 12:00 09/13/17 12:00 09/13/17 12:00 09/13/17 12:00 Intake and Output: 09/13/17 09/13/17 06:59 18:59 Intake Total 675 160 Output Total 1000 Balance -325 160 - Medications Medications: Current Medications Acetaminophen (Tylenol 325mg Tab) 650 mg PO Q6H PRN PRN Reason: Pain, Mild (1-3) Last Admin: 09/12/17 15:10 Dose: 650 mg Allopurinol (Zyloprim) 100 mg PO DAILY [facility] Last Admin: 09/13/17 10:39 Dose: 100 mg Docusate Sodium (Colace) 100 mg PO BID [facility] Last Admin: 09/13/17 10:35 Dose: 100 mg Ergocalciferol (Drisdol 50,000 Intl Units Cap) 1 cap PO FR [facility] Last Admin: 09/09/17 04:23 Dose: Not Given Fentanyl (Duragesic) 1 patch TD Q3D [facility] PRN Reason: Protocol Last Admin: 09/12/17 11:25 Dose: 1 patch Ferrous Sulfate (Feosol) 325 mg PO DAILY [facility] Last Admin: 09/13/17 10:36 Dose: 325 mg Furosemide (Lasix) 20 mg IVP Q12 [facility] Last Admin: 09/13/17 10:36 Dose: 20 mg Lorazepam (Ativan) 0.5 mg PO BID PRN PRN Reason: Anxiety Last Admin: 09/12/17 21:35 Dose: 0.5 mg Metoprolol Succinate (Toprol Xl) 25 mg PO DAILY [facility] Last Admin: 09/13/17 10:38 Dose: Not Given Morphine Sulfate (Morphine) 2 mg IVP Q4 PRN PRN Reason: Pain, severe (8-10) Last Admin: 09/13/17 12:44 Dose: 2 mg Ondansetron HCl (Zofran Odt) 4 mg PO Q8H PRN PRN Reason: Nausea/Vomiting Last Admin: 09/12/17 05:46 Dose: 4 mg Oxycodone/Acetaminophen (Percocet 5/325 Mg Tab) 1 tab PO Q6 PRN PRN Reason: Pain, moderate (4-7) Stop: 09/14/17 08:40 Last Admin: 09/13/17 04:33 Dose: 1 tab Rivaroxaban (Xarelto) 15 mg PO HS [facility] PRN Reason: Protocol Last Admin: 09/12/17 22:00 Dose: 15 mg Sodium Hypochlorite (Dakins Solution 0.25%) 20 ml TOP BID [facility] Last Admin: 09/13/17 10:35 Dose: 20 ml - Labs Labs: 09/13/17 04:25 09/13/17 04:25 PT 17.4 Seconds (9.8-13.1) H 09/06/17 04:20 INR 1.6 (0.9-1.2) H 09/06/17 04:20 APTT 33.8 Seconds (25.6-37.1) 09/06/17 04:20 - Constitutional Appears: Chronically Ill - Head Exam Head Exam: NORMOCEPHALIC - ENT Exam ENT Exam: Mucous Membranes Dry - Cardiovascular Exam Cardiovascular Exam: +S1, +S2 - GI/Abdominal Exam GI & Abdominal Exam: Soft - Skin Additional comments: Left breast mass Assessment and Plan - Assessment and Plan (Free Text) Assessment: 77F with b/l pleural effusions 2/2 metastatic tumor and CHF Plan: Await family decision regarding hospice care Recommend PleurX catheter insertion if patient/family amenable to procedure Patient will need to be medically optimize F/u pleural fluid cultures D/w Dr. Harpreet HOWELL PGY2
--- NOTE | 2017-09-13 13:48 | CP.CCUPN ---
CCU Subjective - Physician Review Subjective (Free Text): Emotional at times, dyspneic with any activity, no distress when motionless. Off vasopressors since yesterday, remains on HFNC at 50% oxygen, 30 LPM. Discussed with Hme-Onc, patient has now agreed to chest tube thoracentesis procedure. Still has all-over pain. Other vitals and I/O's reviewed. No fever spikes. ROS: No other pertinent negs or positives on 10+ system review. PMSFH: All other Nursing and physician documentation reviewed to date; no new pertinent info noted relevant to current medical problems. EXAM- HEENT: no icterus, no gaze preference, pupils equal and reactive NECK: No JVD, supple, carotids equal upstroke bilat/no bruits CHEST: decreased BS bases bilat, Left chest/breast dressing intact HEART: irregular, distant, S1S2, no rubs. ABD: soft, no distention, no tympany, no palp tenderness, BS not heard, abdominal dressing intact. EXT: No peripheral/ digital cyanosis, no calf tenderness or palpable cords, distal pulses intact and symmetrical. +anasarca involving all extremities, sacral and abdominal areas. NEURO: no focal gross motor deficits SKIN: no rashes, warm and dry. LABS: WBC= 7.0 HGB= 10.5 PLTs= 196K Hc=115 K= 5.2 CL=94 HCO3= 29 BUN/Cr= 46/1.1 BS= 95 CXR: ( my interp)- bilateral effusions, occupying more than half usual lung volume. IMPRESSION / MAJOR PROBLEMS NOW: 1 Acute Resp insuff 2 massive bilat effusions. 2. r/o Malignant bilat effusions 2 breast CA 3. L Breast CA with Stacey Mets 4. Azotemia with mild Hyperkalemia 5. Pulm HtN by ECHO findings PLAN: 1. Aware patient has agreed to chest tube thoracostomy for symptom improvement in subjective dyspnea. PMD has also requested Hospice eval. Given poor prognosis with stacey mets disease, need consensus opinion from and / between all consultants and PMD regarding further mgmt. 2. Clarify present orders regarding Lasix IV Q12 and concomitant IVFs with NSS. ECHO results from 09/04 reviewed. Acceptable LVEF noted, but RA and RV enlargement with Pulm HTN noted. 3. Consider increasing pain control: increase fentanyl patch to 50 mcg dose. 4. Still on Xarelto. Will hold for today pending real plans for any invasive procedures. CCU Objective - Vital Signs / Intake & Output Vital Signs (Last 4 hours): Vital Signs Temp Pulse Resp BP Pulse Ox 09/13/17 12:00 98.6 F 108 H 16 102/66 99 09/13/17 11:48 16 09/13/17 10:38 100 H 94/64 L 09/13/17 10:36 94/64 L 09/13/17 10:00 106 H 16 94/64 L 98 Intake and Output (Last 8hrs): Intake & Output 09/12/17 09/13/17 09/13/17 22:59 06:59 14:59 Intake Total 450 425 160 Output Total 400 800 Balance 50 -375 160 Weight 210 lb Intake: IV 400 400 60 Oral 50 25 100 Output: Urine 400 800 Urethral (Russell) 400 800 Other: # Bowel Movements 1 - Physical Exam Cardiovascular: Positive for: Irregular Rhythm
[2017-09-13 18:29] LABS: CA 27.29 295 U/mL (<38)
[2017-09-14 05:11] LABS: BASO # 0.1 K/uL (0.0-0.2); BASO % 1.1 % (0.0-2.0); EOS # 0.1 K/uL (0.0-0.7); EOS % 1.9 % (0.0-4.0); HEMOGLOBIN 10.5 g/dL (12.0-16.0); LYMPH # 0.8 K/uL (1.0-4.3); LYMPH % 14.5 % (20.0-40.0); MEAN CELL VOLUME 98.3 fl (81.0-99.0); MEAN CORPUSCULAR HEMOGLOBIN 31.6 pg (27.0-31.0); MEAN CORPUSCULAR HGB CONC 32.1 g/dL (33.0-37.0); MEAN PLATELET VOLUME 7.6 fl (7.2-11.7); MONO # 0.4 K/uL (0.0-0.8); MONO % 6.9 % (0.0-10.0); NEUT # 4.2 K/uL (1.8-7.0); NEUT % 75.6 % (50.0-75.0); RBC 3.32 Mil/uL (3.80-5.20); RED CELL DISTRIBUTION WIDTH 15.6 % (11.5-14.5); WHITE BLOOD COUNT 5.6 K/uL (4.8-10.8)
[2017-09-14 05:20] LABS: ALB/GLOB RATIO 0.9 (1.0-2.1); ALBUMIN 2.9 g/dL (3.5-5.0); ALT/SGPT 40 U/L (9-52); AST/SGOT 43 U/L (14-36); BLOOD UREA NITROGEN 39 mg/dl (7-17); CALCIUM 9.8 mg/dL (8.4-10.2); GFR AFRICAN-AMERICAN > 60; GFR NON-AFRICAN AMERICAN 54
--- NOTE | 2017-09-14 08:35 | CP.PCM.PN ---
Subjective - Date & Time of Evaluation Date of Evaluation: 09/14/17 Time of Evaluation: 07:15 - Subjective Subjective: Patient seen and examined bedside with Dr Hassan. Patient on high flow 30 , FIO2 50 %, Denies chest pain, n, abd pain Hospice inpatient has been decided by the family as prior discussion by Dr Hassan and patients gera Mccauley [phone] Objective - Vital Signs/Intake and Output Vital Signs (last 24 hours): Temp Pulse Resp BP Pulse Ox 97.5 F L 112 H 15 102/49 L 97 09/14/17 04:00 09/14/17 06:00 09/14/17 06:00 09/14/17 06:00 09/14/17 06:00 Intake and Output: 09/14/17 09/14/17 06:59 18:59 Intake Total 90 Output Total 1300 Balance -1210 - Medications Medications: Current Medications Acetaminophen (Tylenol 325mg Tab) 650 mg PO Q6H PRN PRN Reason: Pain, Mild (1-3) Last Admin: 09/12/17 15:10 Dose: 650 mg Allopurinol (Zyloprim) 100 mg PO DAILY [facility] Last Admin: 09/13/17 10:39 Dose: 100 mg Docusate Sodium (Colace) 100 mg PO BID [facility] Last Admin: 09/13/17 17:57 Dose: 100 mg Ergocalciferol (Drisdol 50,000 Intl Units Cap) 1 cap PO FR [facility] Last Admin: 09/09/17 04:23 Dose: Not Given Fentanyl (Duragesic) 1 patch TD Q3D [facility] PRN Reason: Protocol Last Admin: 09/12/17 11:25 Dose: 1 patch Ferrous Sulfate (Feosol) 325 mg PO DAILY [facility] Last Admin: 09/13/17 10:36 Dose: 325 mg Furosemide (Lasix) 20 mg IVP Q12 [facility] Last Admin: 09/13/17 22:07 Dose: 20 mg Lorazepam (Ativan) 0.5 mg PO BID PRN PRN Reason: Anxiety Last Admin: 09/12/17 21:35 Dose: 0.5 mg Metoprolol Succinate (Toprol Xl) 25 mg PO DAILY [facility] Last Admin: 09/13/17 10:38 Dose: Not Given Morphine Sulfate (Morphine) 2 mg IVP Q4 PRN PRN Reason: Pain, severe (8-10) Last Admin: 09/13/17 19:36 Dose: 2 mg Ondansetron HCl (Zofran Odt) 4 mg PO Q8H PRN PRN Reason: Nausea/Vomiting Last Admin: 09/12/17 05:46 Dose: 4 mg Oxycodone/Acetaminophen (Percocet 5/325 Mg Tab) 1 tab PO Q6 PRN PRN Reason: Pain, moderate (4-7) Stop: 09/14/17 08:40 Last Admin: 09/13/17 04:33 Dose: 1 tab Rivaroxaban (Xarelto) 15 mg PO HS [facility] PRN Reason: Protocol Last Admin: 09/12/17 22:00 Dose: 15 mg Sodium Hypochlorite (Dakins Solution 0.25%) 20 ml TOP BID [facility] Last Admin: 09/13/17 10:35 Dose: 20 ml - Labs Labs: 09/14/17 04:20 09/14/17 04:20 PT 17.4 Seconds (9.8-13.1) H 09/06/17 04:20 INR 1.6 (0.9-1.2) H 09/06/17 04:20 APTT 33.8 Seconds (25.6-37.1) 09/06/17 04:20 - Constitutional Appears: No Acute Distress, In Acute Distress - Head Exam Head Exam: ATRAUMATIC, NORMOCEPHALIC - Eye Exam Eye Exam: Normal appearance - ENT Exam ENT Exam: Mucous Membranes Moist - Respiratory Exam Respiratory Exam: Decreased Breath Sounds - Cardiovascular Exam Cardiovascular Exam: REGULAR RHYTHM, +S1, +S2 - GI/Abdominal Exam GI & Abdominal Exam: Soft, Normal Bowel Sounds. absent: Tenderness - Neurological Exam Neurological Exam: Alert, Awake - Psychiatric Exam Psychiatric exam: Normal Affect - Skin Skin Exam: Intact Assessment and Plan - Assessment and Plan (Free Text) Plan: Assessment/Plan 1) Respiratory failure -High flow oxygen -s/p right thoracentesis day 4 -Surgery consult suggested -CXR: b/l pleural effusion worse to the left 2) Diastolic CHF exacerbation - Pro BNP of 5190 - Echo: EF normal. Dilated cardiomyopathy. Pulmonary HTN -lasix 20 mg BID -on levophed -Cardiology consult appreciated 3) Bilateral Pleural effusion -secondary CHF vs metastatic breast Ca -CXR: mod b/l pleural effusions -s/p right thoracentesis day 4 -Pulmonology consult appreciated: on rocephin 4) Atrial Fibrilation Chronic on Xarelto -c/w digoxin, metroprolol 5) HTN Controlled -c/w home meds 6) Left breast mass -secondary to high probability of breast CA with bone mets -Hem-Onc consult appreciated 7) DVT prophylaxis -On anticoagulation with Xarelto 8) Dispo -Inpatient hospice. Transfer to inpatient room once papers signed by patients gera
[2017-09-14] MEDS: Metoprolol Succinate 25 mg XL Tab PO SCH (10:08)
--- NOTE | 2017-09-14 10:22 | CP.PCM.PN ---
Subjective - Date & Time of Evaluation Date of Evaluation: 09/14/17 Time of Evaluation: 10:20 - Subjective Subjective: The ptpt and her family have decided that they do not want any thoracentesis or treatment for the breast cancer.. They have all agreed to send her to inpatient hospice. Objective - Vital Signs/Intake and Output Vital Signs (last 24 hours): Temp Pulse Resp BP Pulse Ox 98.5 F 122 H 14 114/79 95 09/14/17 08:00 09/14/17 10:08 09/14/17 08:00 09/14/17 10:08 09/14/17 08:00 Intake and Output: 09/14/17 09/14/17 06:59 18:59 Intake Total 90 Output Total 1300 Balance -1210 - Medications Medications: Current Medications Acetaminophen (Tylenol 325mg Tab) 650 mg PO Q6H PRN PRN Reason: Pain, Mild (1-3) Last Admin: 09/12/17 15:10 Dose: 650 mg Allopurinol (Zyloprim) 100 mg PO DAILY [facility] Last Admin: 09/14/17 10:08 Dose: 100 mg Ergocalciferol (Drisdol 50,000 Intl Units Cap) 1 cap PO FR [facility] Last Admin: 09/09/17 04:23 Dose: Not Given Fentanyl (Duragesic) 1 patch TD Q3D [facility] PRN Reason: Protocol Last Admin: 09/12/17 11:25 Dose: 1 patch Ferrous Sulfate (Feosol) 325 mg PO DAILY [facility] Last Admin: 09/14/17 10:08 Dose: 325 mg Furosemide (Lasix) 20 mg IVP Q12 [facility] Last Admin: 09/14/17 10:07 Dose: 20 mg Lorazepam (Ativan) 0.5 mg PO BID PRN PRN Reason: Anxiety Last Admin: 09/12/17 21:35 Dose: 0.5 mg Metoprolol Succinate (Toprol Xl) 25 mg PO DAILY [facility] Last Admin: 09/14/17 10:08 Dose: 25 mg Morphine Sulfate (Morphine) 2 mg IVP Q4 PRN PRN Reason: Pain, severe (8-10) Last Admin: 09/13/17 19:36 Dose: 2 mg Ondansetron HCl (Zofran Odt) 4 mg PO Q8H PRN PRN Reason: Nausea/Vomiting Last Admin: 09/12/17 05:46 Dose: 4 mg Rivaroxaban (Xarelto) 15 mg PO HS [facility] PRN Reason: Protocol Last Admin: 09/12/17 22:00 Dose: 15 mg Sodium Hypochlorite (Dakins Solution 0.25%) 20 ml TOP BID [facility] Last Admin: 09/13/17 10:35 Dose: 20 ml - Labs Labs: 09/14/17 04:20 09/14/17 04:20 PT 17.4 Seconds (9.8-13.1) H 09/06/17 04:20 INR 1.6 (0.9-1.2) H 09/06/17 04:20 APTT 33.8 Seconds (25.6-37.1) 09/06/17 04:20
--- NOTE | 2017-09-14 10:28 | CP.PCM.PN ---
Subjective - Date & Time of Evaluation Date of Evaluation: 09/14/17 Time of Evaluation: 07:15 - Subjective Subjective: CT Surgery Pt seen and examined. Complains of pain everywhere when asked. Clinical course remains unchanged. At this time family is planning for hospice care. No further thoracentesis or surgical treatment. Objective - Vital Signs/Intake and Output Vital Signs (last 24 hours): Temp Pulse Resp BP Pulse Ox 98.5 F 122 H 14 114/79 95 09/14/17 08:00 09/14/17 10:08 09/14/17 08:00 09/14/17 10:08 09/14/17 08:00 Intake and Output: 09/14/17 09/14/17 06:59 18:59 Intake Total 90 Output Total 1300 Balance -1210 - Medications Medications: Current Medications Acetaminophen (Tylenol 325mg Tab) 650 mg PO Q6H PRN PRN Reason: Pain, Mild (1-3) Last Admin: 09/12/17 15:10 Dose: 650 mg Allopurinol (Zyloprim) 100 mg PO DAILY [facility] Last Admin: 09/14/17 10:08 Dose: 100 mg Ergocalciferol (Drisdol 50,000 Intl Units Cap) 1 cap PO FR [facility] Last Admin: 09/09/17 04:23 Dose: Not Given Fentanyl (Duragesic) 1 patch TD Q3D [facility] PRN Reason: Protocol Last Admin: 09/12/17 11:25 Dose: 1 patch Ferrous Sulfate (Feosol) 325 mg PO DAILY [facility] Last Admin: 09/14/17 10:08 Dose: 325 mg Furosemide (Lasix) 20 mg IVP Q12 [facility] Last Admin: 09/14/17 10:07 Dose: 20 mg Lorazepam (Ativan) 0.5 mg PO BID PRN PRN Reason: Anxiety Last Admin: 09/12/17 21:35 Dose: 0.5 mg Metoprolol Succinate (Toprol Xl) 25 mg PO DAILY [facility] Last Admin: 09/14/17 10:08 Dose: 25 mg Morphine Sulfate (Morphine) 2 mg IVP Q4 PRN PRN Reason: Pain, severe (8-10) Last Admin: 09/13/17 19:36 Dose: 2 mg Ondansetron HCl (Zofran Odt) 4 mg PO Q8H PRN PRN Reason: Nausea/Vomiting Last Admin: 09/12/17 05:46 Dose: 4 mg Rivaroxaban (Xarelto) 15 mg PO HS [facility] PRN Reason: Protocol Last Admin: 09/12/17 22:00 Dose: 15 mg Sodium Hypochlorite (Dakins Solution 0.25%) 20 ml TOP BID [facility] Last Admin: 09/13/17 10:35 Dose: 20 ml - Labs Labs: 09/14/17 04:20 09/14/17 04:20 PT 17.4 Seconds (9.8-13.1) H 09/06/17 04:20 INR 1.6 (0.9-1.2) H 09/06/17 04:20 APTT 33.8 Seconds (25.6-37.1) 09/06/17 04:20 - Constitutional Appears: No Acute Distress (when not moving), Chronically Ill - Head Exam Head Exam: ATRAUMATIC, NORMOCEPHALIC - Eye Exam Eye Exam: EOMI. absent: Scleral icterus - Respiratory Exam Respiratory Exam: NORMAL BREATHING PATTERN. absent: Accessory Muscle Use Additional comments: on 50% vapotherm, sats 100% - GI/Abdominal Exam GI & Abdominal Exam: Soft. absent: Distended, Tenderness - Neurological Exam Neurological Exam: Alert, Awake - Skin Skin Exam: Dry, Warm Assessment and Plan - Assessment and Plan (Free Text) Assessment: 77F with b/l pleural effusions 2/2 metastatic tumor and CHF Plan: Family decided on hospice care declining further drainage/procedures. F/u pleural fluid cultures No further surgical intervention at this time. D/W Dr. Harpreet Almanza PGY4
[2017-09-15 05:33] LABS: ALB/GLOB RATIO 0.9 (1.0-2.1); ALBUMIN 2.9 g/dL (3.5-5.0); ALT/SGPT 39 U/L (9-52); AST/SGOT 44 U/L (14-36); BLOOD UREA NITROGEN 38 mg/dl (7-17); CALCIUM 10.1 mg/dL (8.4-10.2); GFR AFRICAN-AMERICAN > 60; GFR NON-AFRICAN AMERICAN 54
[2017-09-15 05:36] LABS: HEMOGLOBIN 10.5 g/dL (12.0-16.0); MEAN CELL VOLUME 98.5 fl (81.0-99.0); MEAN CORPUSCULAR HEMOGLOBIN 31.5 pg (27.0-31.0); RBC 3.35 Mil/uL (3.80-5.20); RED CELL DISTRIBUTION WIDTH 15.5 % (11.5-14.5); WHITE BLOOD COUNT 5.5 K/uL (4.8-10.8)
[2017-09-15] MEDS: Ergocalciferol 50,000 Intl Units Cap PO SCH (06:25)
[2017-09-15] MEDS: Dakin's Topical 0.25%-Half Strength (480 ml) TOP SCH (08:53)
[2017-09-15] MEDS: Metoprolol Succinate 25 mg XL Tab PO SCH (08:55)
[2017-09-15 10:28] VITALS: PULSE 103
--- NOTE | 2017-09-15 11:51 | CP.PCM.PN ---
Subjective - Date & Time of Evaluation Date of Evaluation: 09/15/17 Time of Evaluation: 07:20 - Subjective Subjective: CT surgery progress note. Dr. Mullins Pt seen and examined at bedside. Discussed case with ICU attending. Family still have not made definitive decision on Hospice, leaning towards making patient hospice. Patient currently denies any shortness of breath, spO2 100% on High flow NC, Staff to change to NC at 4L. No new complaints. Does have episodes of dementia and agitation. Objective - Vital Signs/Intake and Output Vital Signs (last 24 hours): Temp Pulse Resp BP Pulse Ox 97.9 F 103 H 17 84/50 L 95 09/15/17 08:31 09/15/17 10:00 09/15/17 10:00 09/15/17 10:00 09/15/17 10:00 Intake and Output: 09/15/17 09/15/17 06:59 18:59 Intake Total 120 240 Output Total 900 Balance -780 240 - Medications Medications: Current Medications Acetaminophen (Tylenol 325mg Tab) 650 mg PO Q6H PRN PRN Reason: Pain, Mild (1-3) Last Admin: 09/12/17 15:10 Dose: 650 mg Allopurinol (Zyloprim) 100 mg PO DAILY [facility] Last Admin: 09/15/17 08:55 Dose: 100 mg Ergocalciferol (Drisdol 50,000 Intl Units Cap) 1 cap PO FR [facility] Last Admin: 09/15/17 06:25 Dose: Not Given Ferrous Sulfate (Feosol) 325 mg PO DAILY [facility] Last Admin: 09/15/17 08:53 Dose: 325 mg Furosemide (Lasix) 20 mg IVP Q12 [facility] Last Admin: 09/15/17 08:54 Dose: 20 mg Lorazepam (Ativan) 0.5 mg PO BID PRN PRN Reason: Anxiety Last Admin: 09/15/17 07:38 Dose: 0.5 mg Metoprolol Succinate (Toprol Xl) 25 mg PO DAILY [facility] Last Admin: 09/15/17 08:55 Dose: 25 mg Morphine Sulfate (Morphine) 2 mg IVP Q4 PRN PRN Reason: Pain, severe (8-10) Last Admin: 09/15/17 09:19 Dose: 2 mg Ondansetron HCl (Zofran Odt) 4 mg PO Q8H PRN PRN Reason: Nausea/Vomiting Last Admin: 09/12/17 05:46 Dose: 4 mg Rivaroxaban (Xarelto) 15 mg PO HS [facility] PRN Reason: Protocol Last Admin: 09/12/17 22:00 Dose: 15 mg Sodium Hypochlorite (Dakins Solution 0.25%) 20 ml TOP BID [facility] Last Admin: 09/15/17 08:53 Dose: Not Given - Labs Labs: 09/15/17 04:20 09/15/17 04:20 PT 17.4 Seconds (9.8-13.1) H 09/06/17 04:20 INR 1.6 (0.9-1.2) H 09/06/17 04:20 APTT 33.8 Seconds (25.6-37.1) 09/06/17 04:20 - Constitutional Appears: No Acute Distress, Chronically Ill - Head Exam Head Exam: ATRAUMATIC, NORMAL INSPECTION, NORMOCEPHALIC - Eye Exam Eye Exam: EOMI. absent: Scleral icterus - ENT Exam ENT Exam: Mucous Membranes Moist - Respiratory Exam Respiratory Exam: NORMAL BREATHING PATTERN. absent: Accessory Muscle Use, Respiratory Distress Additional comments: SpO2 100% on High[place], 98% on NC@4L - GI/Abdominal Exam GI & Abdominal Exam: Soft. absent: Distended, Guarding, Rigid, Tenderness - Extremities Exam Extremities Exam: Normal Inspection - Neurological Exam Neurological Exam: Awake - Skin Skin Exam: Dry, Intact, Normal Color, Warm Assessment and Plan - Assessment and Plan (Free Text) Assessment: 77yo F with b/l pleural effusions 2/2 metastatic disease and CHF Plan: - Family planning on hospice care - Offered PleurX catheter placement. Family refusing for now. Please contact CT surgery if family would like to proceed. - F/u pleural fluid cultures - No further surgical intervention at this time Further recs as per Dr. Harpreet Garcia PGY1 surgery pager: [phone]
[2017-09-15 13:16] VITALS: BP 106/69; RESP 22; TEMP 98.1; O2SAT 96
--- NOTE | 2017-09-15 16:29 | CP.PCM.PN ---
Subjective - Date & Time of Evaluation Date of Evaluation: 09/14/17 Time of Evaluation: 15:00 - Subjective Subjective: on levophed high flow O2 plan for hospice Objective - Vital Signs/Intake and Output Vital Signs (last 24 hours): Temp Pulse Resp BP Pulse Ox 98.1 F 103 H 22 106/69 96 09/15/17 12:00 09/15/17 12:00 09/15/17 12:00 09/15/17 12:00 09/15/17 12:00 Intake and Output: 09/15/17 09/15/17 06:59 18:59 Intake Total 120 240 Output Total 900 Balance -780 240 - Medications Medications: Current Medications Acetaminophen (Tylenol 325mg Tab) 650 mg PO Q6H PRN PRN Reason: Pain, Mild (1-3) Last Admin: 09/12/17 15:10 Dose: 650 mg Allopurinol (Zyloprim) 100 mg PO DAILY [facility] Last Admin: 09/15/17 08:55 Dose: 100 mg Ergocalciferol (Drisdol 50,000 Intl Units Cap) 1 cap PO FR [facility] Last Admin: 09/15/17 06:25 Dose: Not Given Ferrous Sulfate (Feosol) 325 mg PO DAILY [facility] Last Admin: 09/15/17 08:53 Dose: 325 mg Furosemide (Lasix) 20 mg IVP Q12 [facility] Last Admin: 09/15/17 08:54 Dose: 20 mg Metoprolol Succinate (Toprol Xl) 25 mg PO DAILY [facility] Last Admin: 09/15/17 08:55 Dose: 25 mg Morphine Sulfate (Morphine) 2 mg IVP Q4 PRN PRN Reason: Pain, severe (8-10) Last Admin: 09/15/17 09:19 Dose: 2 mg Ondansetron HCl (Zofran Odt) 4 mg PO Q8H PRN PRN Reason: Nausea/Vomiting Last Admin: 09/12/17 05:46 Dose: 4 mg Rivaroxaban (Xarelto) 15 mg PO HS [facility] PRN Reason: Protocol Last Admin: 09/12/17 22:00 Dose: 15 mg Sodium Hypochlorite (Dakins Solution 0.25%) 20 ml TOP BID [facility] Last Admin: 09/15/17 08:53 Dose: Not Given - Labs Labs: 09/15/17 04:20 09/15/17 04:20 PT 17.4 Seconds (9.8-13.1) H 09/06/17 04:20 INR 1.6 (0.9-1.2) H 09/06/17 04:20 APTT 33.8 Seconds (25.6-37.1) 09/06/17 04:20 - Constitutional Appears: Well, Chronically Ill - Head Exam Head Exam: ATRAUMATIC, NORMAL INSPECTION, NORMOCEPHALIC - Eye Exam Eye Exam: EOMI, Normal appearance, PERRL Pupil Exam: NORMAL ACCOMODATION, PERRL - ENT Exam ENT Exam: Mucous Membranes Moist, Normal Exam - Neck Exam Neck Exam: Full ROM, Normal Inspection. absent: Lymphadenopathy - Respiratory Exam Respiratory Exam: Clear to Ausculation Bilateral, NORMAL BREATHING PATTERN - Cardiovascular Exam Cardiovascular Exam: REGULAR RHYTHM, +S1, +S2, Murmur - GI/Abdominal Exam GI & Abdominal Exam: Soft, Normal Bowel Sounds. absent: Tenderness - Extremities Exam Extremities Exam: Full ROM, Normal Capillary Refill, Normal Inspection. absent : Joint Swelling, Pedal Edema - Back Exam Back Exam: NORMAL INSPECTION - Neurological Exam Neurological Exam: Alert, Awake, CN II-XII Intact, Oriented x3 - Psychiatric Exam Psychiatric exam: Flat Affect - Skin Skin Exam: Dry, Intact, Normal Color, Warm Assessment and Plan (1) Atrial fibrillation Status: Acute (2) CHF (congestive heart failure) Status: Acute (3) Pleural effusion, bilateral Status: Acute (4) HTN (hypertension) Status: Acute
--- NOTE | 2017-09-15 16:31 | CP.PCM.PN ---
Subjective - Date & Time of Evaluation Date of Evaluation: 09/15/17 Time of Evaluation: 16:30 - Subjective Subjective: family deciding on hospice on high flow nasal O2 Objective - Vital Signs/Intake and Output Vital Signs (last 24 hours): Temp Pulse Resp BP Pulse Ox 98.1 F 103 H 22 106/69 96 09/15/17 12:00 09/15/17 12:00 09/15/17 12:00 09/15/17 12:00 09/15/17 12:00 Intake and Output: 09/15/17 09/15/17 06:59 18:59 Intake Total 120 240 Output Total 900 Balance -780 240 - Medications Medications: Current Medications Acetaminophen (Tylenol 325mg Tab) 650 mg PO Q6H PRN PRN Reason: Pain, Mild (1-3) Last Admin: 09/12/17 15:10 Dose: 650 mg Allopurinol (Zyloprim) 100 mg PO DAILY [facility] Last Admin: 09/15/17 08:55 Dose: 100 mg Ergocalciferol (Drisdol 50,000 Intl Units Cap) 1 cap PO FR [facility] Last Admin: 09/15/17 06:25 Dose: Not Given Ferrous Sulfate (Feosol) 325 mg PO DAILY [facility] Last Admin: 09/15/17 08:53 Dose: 325 mg Furosemide (Lasix) 20 mg IVP Q12 [facility] Last Admin: 09/15/17 08:54 Dose: 20 mg Metoprolol Succinate (Toprol Xl) 25 mg PO DAILY [facility] Last Admin: 09/15/17 08:55 Dose: 25 mg Morphine Sulfate (Morphine) 2 mg IVP Q4 PRN PRN Reason: Pain, severe (8-10) Last Admin: 09/15/17 09:19 Dose: 2 mg Ondansetron HCl (Zofran Odt) 4 mg PO Q8H PRN PRN Reason: Nausea/Vomiting Last Admin: 09/12/17 05:46 Dose: 4 mg Rivaroxaban (Xarelto) 15 mg PO HS [facility] PRN Reason: Protocol Last Admin: 09/12/17 22:00 Dose: 15 mg Sodium Hypochlorite (Dakins Solution 0.25%) 20 ml TOP BID [facility] Last Admin: 09/15/17 08:53 Dose: Not Given - Labs Labs: 09/15/17 04:20 09/15/17 04:20 PT 17.4 Seconds (9.8-13.1) H 09/06/17 04:20 INR 1.6 (0.9-1.2) H 09/06/17 04:20 APTT 33.8 Seconds (25.6-37.1) 09/06/17 04:20 - Constitutional Appears: Well - Head Exam Head Exam: ATRAUMATIC, NORMAL INSPECTION, NORMOCEPHALIC - Eye Exam Eye Exam: EOMI, Normal appearance, PERRL Pupil Exam: NORMAL ACCOMODATION, PERRL - ENT Exam ENT Exam: Mucous Membranes Moist, Normal Exam - Neck Exam Neck Exam: Full ROM, Normal Inspection. absent: Lymphadenopathy - Respiratory Exam Respiratory Exam: Rales, Respiratory Distress - Cardiovascular Exam Cardiovascular Exam: REGULAR RHYTHM, +S1, +S2, Murmur - GI/Abdominal Exam GI & Abdominal Exam: Soft, Normal Bowel Sounds. absent: Tenderness - Extremities Exam Extremities Exam: Full ROM, Normal Capillary Refill, Normal Inspection. absent : Joint Swelling, Pedal Edema - Back Exam Back Exam: NORMAL INSPECTION - Neurological Exam Neurological Exam: Alert, Awake, CN II-XII Intact, Oriented x3 - Psychiatric Exam Psychiatric exam: Flat Affect, Normal Mood - Skin Skin Exam: Dry, Intact, Normal Color, Warm Assessment and Plan (1) Atrial fibrillation Status: Acute (2) CHF (congestive heart failure) Status: Acute (3) Pleural effusion, bilateral Status: Acute (4) HTN (hypertension) Status: Acute
--- NOTE | 2017-09-16 17:59 | CP.PCM.DIS ---
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 09/12/17 06:40 Urine,Russell Urine Culture - Final No Growth (<1,000 CFU/ML) 09/09/17 06:31 Naris MRSA Culture (Admit) - Final MRSA NOT DETECTED 09/08/17 18:00 Naris MRSA Culture (Admit) - Final MRSA NOT DETECTED 09/04/17 18:55 Blood-Venous Blood Culture - Final NO GROWTH AFTER 5 DAYS 09/04/17 18:22 Blood-Venous Blood Culture - Final NO GROWTH AFTER 5 DAYS 09/04/17 18:22 Blood-Venous Gram Stain - Final TEST NOT PERFORMED 09/04/17 07:21 Nose MRSA Culture (Admit) - Final MRSA NOT DETECTED Most Recent Lab Values WBC 5.5 K/uL (4.8-10.8) 09/15/17 04:20 RBC 3.35 Mil/uL (3.80-5.20) L 09/15/17 04:20 Hgb 10.5 g/dL (12.0-16.0) L 09/15/17 04:20 Hct 33.0 % (34.0-47.0) L 09/15/17 04:20 MCV 98.5 fl (81.0-99.0) 09/15/17 04:20 MCH 31.5 pg (27.0-31.0) H 09/15/17 04:20 MCHC 32.0 g/dL (33.0-37.0) L 09/15/17 04:20 RDW 15.5 % (11.5-14.5) H 09/15/17 04:20 Plt Count 206 K/uL (130-400) 09/15/17 04:20 MPV 7.6 fl (7.2-11.7) 09/14/17 04:20 Neut % (Auto) 75.6 % (50.0-75.0) H 09/14/17 04:20 Lymph % (Auto) 14.5 % (20.0-40.0) L 09/14/17 04:20 [place] % (Auto) 6.9 % (0.0-10.0) 09/14/17 04:20 Eos % (Auto) 1.9 % (0.0-4.0) 09/14/17 04:20 Baso % (Auto) 1.1 % (0.0-2.0) 09/14/17 04:20 Neut # (Auto) 4.2 K/uL (1.8-7.0) 09/14/17 04:20 Lymph # (Auto) 0.8 K/uL (1.0-4.3) L 09/14/17 04:20 [place] # (Auto) 0.4 K/uL (0.0-0.8) 09/14/17 04:20 Eos # (Auto) 0.1 K/uL (0.0-0.7) 09/14/17 04:20 Baso # (Auto) 0.1 K/uL (0.0-0.2) 09/14/17 04:20 PT 17.4 Seconds (9.8-13.1) H 09/06/17 04:20 INR 1.6 (0.9-1.2) H 09/06/17 04:20 APTT 33.8 Seconds (25.6-37.1) 09/06/17 04:20 pCO2 51 mm/Hg (35-45) H 09/09/17 19:05 pO2 145 mm/Hg (80-100) H 09/09/17 19:05 HCO3 28.8 mmol/L (21-28) H 09/09/17 19:05 ABG pH 7.39 (7.35-7.45) 09/09/17 19:05 ABG Total CO2 32.5 mmol/L (22-28) H 09/09/17 19:05 ABG O2 Saturation 99.8 % (95-98) H 09/09/17 19:05 ABG O2 Content 14.9 ML/dL (15-23) L 09/09/17 19:05 ABG Base Excess 5.0 mmol/L (-2.0-3.0) H 09/09/17 19:05 ABG Hemoglobin 10.7 g/dL (11.7-17.4) L 09/09/17 19:05 ABG Carboxyhemoglobin 1.6 % (0.5-1.5) H 09/09/17 19:05 POC ABG HHb (Measured) 0.2 % (0.0-5.0) 09/09/17 19:05 ABG Methemoglobin 1.4 % (0.0-3.0) 09/09/17 19:05 ABG O2 Capacity 14.9 mL/dL (16-24) L 09/09/17 19:05 [place] Test Yes 09/09/17 19:05 A-a O2 Difference 219.0 mm/Hg 09/09/17 19:05 Hgb O2 Saturation 96.8 % (95.0-98.0) 09/09/17 19:05 Vent Mode Bipap 09/09/17 19:05 Mechanical Rate 16 09/09/17 19:05 FiO2 60.0 % 09/09/17 19:05 Inspiratory BiPAP 18 09/09/17 19:05 Expiratory BiPAP 7 09/09/17 19:05 Crit Value Called To Dr ronel johnson 09/09/17 02:30 Crit Value Called By Himanshu 09/09/17 02:30 Crit Value Read Back Y 09/09/17 02:30 Blood Gas Notified Time 248 09/09/17 02:30 Sodium 137 mmol/l (132-148) 09/15/17 04:20 Potassium 5.1 MMOL/L (3.6-5.0) H 09/15/17 04:20 Chloride 97 mmol/L (98-107) L 09/15/17 04:20 Carbon Dioxide 32 mmol/L (22-30) H 09/15/17 04:20 Anion Gap 13 (10-20) 09/15/17 04:20 BUN 38 mg/dl (7-17) H 09/15/17 04:20 Creatinine 1.0 mg/dl (0.7-1.2) 09/15/17 04:20 Est GFR ( Amer) > 60 09/15/17 04:20 Est GFR (Non-Af Amer) 54 09/15/17 04:20 Random Glucose 74 mg/dL (65-105) 09/15/17 04:20 Lactic Acid 1.0 MMOL/L (0.7-2.1) 09/04/17 18:22 Calcium 10.1 mg/dL (8.4-10.2) 09/15/17 04:20 Magnesium 1.8 MG/DL (1.6-2.3) 09/05/17 04:30 Total Bilirubin 0.5 mg/dl (0.2-1.3) 09/15/17 04:20 AST 44 U/L (14-36) H 09/15/17 04:20 ALT 39 U/L (9-52) 09/15/17 04:20 Alkaline Phosphatase 126 U/L (38-126) 09/15/17 04:20 Troponin I 0.0630 ng/mL (0.00-0.120) 09/05/17 04:30 NT-Pro-B Natriuret Pep 99651 pg/ml (0-900) H 09/10/17 04:25 Total Protein 6.3 G/DL (6.3-8.2) 09/15/17 04:20 Albumin 2.9 g/dL (3.5-5.0) L 09/15/17 04:20 Globulin 3.3 gm/dL (2.2-3.9) 09/15/17 04:20 Albumin/Globulin Ratio 0.9 (1.0-2.1) L 09/15/17 04:20 CA 15-3 Antigen 280 U/mL (0-35) H 09/12/17 06:20 CA 27-29 295 U/mL (<38) H 09/12/17 06:20 TSH 3rd Generation 2.81 mIU/ML (0.46-4.68) 09/05/17 04:30 Urine Color Yellow (YELLOW) 09/12/17 06:40 Urine Clarity Clear (Clear) 09/12/17 06:40 Urine pH 6.0 (5.0-8.0) 09/12/17 06:40 Ur Specific [place] 1.013 (1.003-1.030) 09/12/17 06:40 Urine Protein Negative mg/dL (NEGATIVE) 09/12/17 06:40 Urine Glucose (UA) Neg mg/dL (Normal) 09/12/17 06:40 Urine Ketones Negative mg/dL (NEGATIVE) 09/12/17 06:40 Urine Blood Negative (NEGATIVE) 09/12/17 06:40 Urine Nitrate Negative (NEGATIVE) 09/12/17 06:40 Urine Bilirubin Negative (NEGATIVE) 09/12/17 06:40 Urine Urobilinogen 0.2-1.0 mg/dL (0.2-1.0) 09/12/17 06:40 Ur Leukocyte Esterase Neg [place]/uL (Negative) 09/12/17 06:40 Urine RBC (Auto) < 1 /hpf (0-3) 09/12/17 06:40 Ur Squamous Epith Cells < 1 /hpf (0-5) 09/12/17 06:40 Hyaline Casts 0-2 /hpf (0-2) 09/12/17 06:40 Digoxin 2.7 ng/mL (0.8-2.0) H* 09/10/17 04:25 - Hospital Course Hospital Course: This is a 77 y/o female admitted for CHF and rapid atrial fibrillation. She was noted to have pulmonary congestion and CHF and noted to have metastatic breast cancer. Discharge Exam - Head Exam Head Exam: ATRAUMATIC, NORMAL INSPECTION, NORMOCEPHALIC Discharge Plan - Follow Up Plan Condition: CRITICAL Disposition: HOSPICE - MEDICAL FACILITY Instructions: Heart Failure, Adult (DC), Pleural Effusion (DC) Additional Instructions: DISCHARGE TO IN-PATIENT HOSPICE Referrals: Sahil Miller MD [Staff Provider] - Jesus Hassan MD [Staff Provider] -
== END 2017-09-15 16:49 | disposition hospice, inpatient (51) | DRG 291 ==
LOC: H.ER 17:33 → H.ERHOLD 21:28 → H.ICU/CCU 09-05 → H.TEL 09-08 14:45 → H.ICU/CCU 09-09 03:45
PROVIDERS: ADMIT Family Medicine; ATTEND Family Medicine
PROC: 0W9930Z Drainage of Right Pleural Cavity with Drainage Device, Percutaneous Approach (ICD-10-PCS; principal; 2017-09-10)
DX: I11.0 Hypertensive heart disease with heart failure (principal); J18.9 Pneumonia, unspecified organism; J96.91 Respiratory failure, unspecified with hypoxia; C78.2 Secondary malignant neoplasm of pleura; C78.7 Secondary malignant neoplasm of liver and intrahepatic bile duct; C79.51 Secondary malignant neoplasm of bone; J44.0 Chronic obstructive pulmonary disease with (acute) lower respiratory infection; J98.11 Atelectasis; C50.912 Malignant neoplasm of unspecified site of left female breast; E78.5 Hyperlipidemia, unspecified; F03.90 Unspecified dementia, unspecified severity, without behavioral disturbance, psychotic disturbance, mood disturbance, and anxiety; F41.9 Anxiety disorder, unspecified; I27.20 Pulmonary hypertension, unspecified; I42.0 Dilated cardiomyopathy; I48.2 Chronic atrial fibrillation; I50.43 Acute on chronic combined systolic (congestive) and diastolic (congestive) heart failure; K59.00 Constipation, unspecified; Z66 Do not resuscitate; Z79.01 Long term (current) use of anticoagulants; Z79.899 Other long term (current) drug therapy; Z80.3 Family history of malignant neoplasm of breast; I95.9 Hypotension, unspecified

== ENCOUNTER 2017-09-15 14:51 | Inpatient (IN) | payer OTHER ==
[2017-09-15 16:06] VITALS: BMI 33.4
[2017-09-15] MEDS ORDERED: Morphine 100 MG in Sodium Chloride 0.9% 100 ML IVPB SCH (16:15)
[2017-09-15] MEDS ORDERED: Petrolatum UD PAK TOP PRN (20:11)
[2017-09-16 23:50] VITALS: BP 53/40; PULSE 95; RESP 24; TEMP 97.3; O2SAT 81
--- NOTE | 2017-10-04 13:16 | CP.PCM.DIS ---
Provider - Provider Date of Admission: 09/15/17 16:07 Attending physician: Jesus Hassan MD Time Spent in preparation of Discharge (in minutes): 30 Hospital Course - Hospital Course Hospital Course: 77yo F with b/l pleural effusions 2/2 metastatic breast ca with lytic lesions and CHF who had a complicated stay in the ICU for ~1 week. Family agreed on hospice care for patient. Patient was started on comfort measures Patient at 0355 am. Discharge Plan - Follow Up Plan Disposition: WITH WITHOUT AUTOPSY Instructions: Heart Failure (DC), Heart Failure (GEN), Pacemaker (DC), Pacemaker (GEN), Pulmonary Edema (DC), Pulmonary Edema (GEN), Ascites (DC), Ascites (GEN), Hypertension (DC), Hypertension (GEN)
== END 2017-09-17 03:55 | DRG 598 ==
LOC: H.MEDSURG1 16:07
PROVIDERS: ADMIT Family Medicine; ATTEND Family Medicine
DX: C50.912 Malignant neoplasm of unspecified site of left female breast (principal); J90 Pleural effusion, not elsewhere classified; I50.9 Heart failure, unspecified; Z51.5 Encounter for palliative care; I10 Essential (primary) hypertension; I48.2 Chronic atrial fibrillation; Z79.01 Long term (current) use of anticoagulants